=== PATIENT | female | born 1970 | race Caucasian/White ===

== ENCOUNTER → 2016-10-30 | Outpatient (CLI) | payer BC ==
--- NOTE | 2016-10-30 07:53 | US ---
EXAMINATION TYPE: US thyroid st tissue head/neck DATE OF EXAM: 10/30/2016 COMPARISON: NONE CLINICAL HISTORY: E03.9 Hypothyroidism. Hypothyroid, pt states being on thyroid meds x 20 yrs GLAND SIZE: Right Lobe: 3.1 x 1.2 x 0.9 cm Overall Parenchyma: heterogenous Left Lobe: 2.5 x 0.9 x 0.8 cm Overall Parenchyma: heterogeneous Isthmus Thickness: 0.3 cm Bilateral neck scanned, no evidence of lymphadenopathy. Bilateral thyroid small, heterogeneous with n o definite nodules visualized IMPRESSION: THE THYROID GLAND IS HETEROGENOUS WITHOUT DEFINITE NODULE.
--- NOTE | 2016-11-03 11:18 | MM ---
Reason for exam: screening (asymptomatic). Last mammogram was performed 1 year and 2 months ago. History: Family history of breast cancer in paternal cousin at age 35. Benign ultrasound-guided core biopsy of the right breast, May 11, 2011. Physical Findings: A clinical breast exam by your physician is recommended on an annual basis and results should be correlated with mammographic findings. MG Screening Mammo w CAD Bilateral CC and MLO view(s) were taken. Prior study comparison: August 30, 2015, bilateral MG diagnostic mammo w CAD ROMAN. August 30, 2015, right breast US breast limited RT. March 16, 2013, CAD bilateral diagnostic mammogram. April 21, 2011, CAD bilateral diagnostic mammogram. The breast tissue is heterogeneously dense. This may lower the sensitivity of mammography. No significant changes when compared with prior studies. ASSESSMENT: Negative, BI-RAD 1 RECOMMENDATION: Routine screening mammogram of both breasts in 1 year.
== END | disposition home or self-care (01) ==
LOC: RADMAMWWP 07:12
PROVIDERS: ATTEND Family Medicine
DX: Z12.31 Encounter for screening mammogram for malignant neoplasm of breast (principal); E03.9 Hypothyroidism, unspecified
CPT/HCPCS: 76536; G0202

== ENCOUNTER → 2017-12-17 | Outpatient (CLI) | payer BC ==
--- NOTE | 2017-12-21 08:43 | MM ---
Reason for exam: screening (asymptomatic). Last mammogram was performed 1 year and 2 months ago. History: Patient is postmenopausal. Family history of breast cancer in paternal cousin at age 35. Benign ultrasound-guided core biopsy of the right breast, May 11, 2011. Physical Findings: A clinical breast exam by your physician is recommended on an annual basis and results should be correlated with mammographic findings. MG Screening Mammo w CAD Bilateral CC and MLO view(s) were taken. Prior study comparison: October 30, 2016, bilateral MG screening mammo w CAD. August 30, 2015, bilateral MG diagnostic mammo w CAD ROMAN. The breast tissue is heterogeneously dense. This may lower the sensitivity of mammography. Previous mammotome biopsy in the right breast. Obscured mass posterior upper outer quadrant right breast with overlying palpable marker. Elongated nodularity posterior right breast CC view. Mass 10 o'clock left breast middle depth appears larger. ASSESSMENT: Incomplete: need additional imaging evaluation, BI-RAD 0 RECOMMENDATION: Special view mammogram of both breasts. If lesion persists on supplemental views, image directed ultrasound is recommended. [facility] will attempt to contact patient to return for supplemental views and ultrasound if indicated.
== END | disposition home or self-care (01) ==
LOC: RADMAMWWP 07:59
PROVIDERS: ATTEND Family Medicine
DX: Z12.31 Encounter for screening mammogram for malignant neoplasm of breast (principal)
CPT/HCPCS: 77067

== ENCOUNTER → 2017-12-29 | Outpatient (CLI) | payer BC ==
--- NOTE | 2017-12-29 13:39 | MM ---
Reason for exam: additional evaluation requested from abnormal screening. Last mammogram was performed less than 1 month ago. History: Patient is postmenopausal. Family history of breast cancer in paternal cousin at age 35. Benign ultrasound-guided core biopsy of the right breast, May 11, 2011. Physical Findings: Nurse Summary: 3cm nodule in the right breast at 10 o'clock (nurse michelle). MG Work Up Mamm w CAD BILAT Bilateral spot compression CC, spot compression MLO, and ML view(s) were taken. Prior study comparison: December 17, 2017, bilateral MG screening mammo w CAD. October 30, 2016, bilateral MG screening mammo w CAD. Upper outer quadrant spiculated mass consistent with malignancy measuring 3.6 x 3.0cm. Irregular density and nodularity left breast. Ultrasound is recommended. These results were verbally communicated with the patient and result sheet given to the patient on 12/29/17. ASSESSMENT: Incomplete: need additional imaging evaluation, BI-RAD 0 RECOMMENDATION: Ultrasound of both breasts.
--- NOTE | 2017-12-29 14:15 | USB ---
Reason for exam: additional evaluation requested from abnormal screening. History: Patient is postmenopausal. Family history of breast cancer in paternal cousin at age 35. Benign ultrasound-guided core biopsy of the right breast, May 11, 2011. US Breast Workup Limited ROMAN Right complete breast ultrasound includes all four quadrants, the retroareolar region and axilla. Finding demonstrates a 0.5 x 0.5 x 0.4cm oval, cystic cluster at 1 o'clock, a 0.4 x 0.2 x 0.2cm oval, cystic lesion at 5 o'clock, a 0.3 x 0.3 x 0.2cm cystic lesion at 10 o'clock, a 0.4 x 0.4 x 0.4cm oval, irregular, cystic lesion at 10 o'clock for which a biopsy is recommended, a 2.8 x 2.5 x 1.8cm oval, irregular, mixed, hypoechoic lesion at 11 o'clock for which a biopsy is recommended and a 3.8 x 2.7 x 2.9cm taller than wide, hypoechoic lesion at the axilla for which a biopsy is recommended. Left limited breast ultrasound including focal area of concern, retroareolar and axilla demonstrates a 0.3 x 0.4 x 0.2cm cystic lesion at 11 o'clock, a 0.7 x 0.4 x 0.5cm cystic lesion at 11 o'clock and a 0.7 x 0.6 x 0.3cm cystic lesion at 10 o'clock. These results were verbally communicated with the patient and result sheet given to the patient on 12/29/17. ASSESSMENT: Highly suggestive of malignancy, BI-RAD 5 Benign, BI-RAD 2 finding in the left breast. Right breast finding is highly suggestive of malignancy, BI-RAD 5. RECOMMENDATION: Ultrasound core biopsy of the right breast. Called Dr. Wu with mammographic findings and has scheduled an appointment for the patient for 01/06/18 at 3:[address] Wells. Biopsy scheduled for 01/07/18 at 8 o'clock. PRELIMINARY REPORT CALLED AND FAXED TO DR. WELLS ON 12/29/17.
== END | disposition home or self-care (01) ==
LOC: RADMAMWWP 09:16
PROVIDERS: ATTEND Family Medicine
DX: R92.8 Other abnormal and inconclusive findings on diagnostic imaging of breast (principal)
CPT/HCPCS: 77066

== ENCOUNTER → 2018-01-06 | Outpatient (CLI) | payer BC ==
[2018-01-06 15:27] VITALS: BP 108/78; PULSE 74; RESP 16; TEMP 98; BMI 41.5
--- NOTE | 2018-01-06 15:52 | P.GSHP ---
History of Present Illness H&P Date: 01/06/18 The patient is a 47-year-old female who presents for breast examination. She has noted approximately 2 months ago an area of increased nodularity in the upper outer quadrant area of the right breast. The patient had bilateral mammograms performed . Following these mammograms a mass was noted in the right breast in compression views were done of both breasts. On the compression views in the upper outer quadrant of the right breast 3.6 x 3 cm irregular density was noted. Bilateral ultrasound was recommended. On the bilateral ultrasound the following areas were identified and recommended for biopsy. Right breast. 1. 10:00 which was a 0.4 x 0.4 cm oval irregular cystic lesion 2. A 2.8 x 2.5 cm irregular lesion at 11:00 and 3. of 3.8 x 2.7 cm lesion at the area of the axilla. In the left breast it was recommended the patient undergo an ultrasound-guided core biopsy of a hyperechoic lesion at 10:00 after the radiographs were reviewed with Dr. Casas. The lesion is 10 cm from the nipple and measures 0.7 x 0.3 x 0.6 cm. The patient does not note any other changes in her breast. She does not have any history of any trauma to the breast or any history of infection in the breast. She does get regular mammograms and in 2011 felt ultrasound core biopsy of the right breast which was benign. Family History: 1. cousin at 35 with breast cancer 2. dad: colon cancer at 50 3. maternal aunt: ovarian 4. maternal aunt: lung cancer Hormonal history: Menarche: 9 Pregnancies: To first at 16, did not breast-feed 2 children Menopause: Patient has not had a period for 1 year control pills: Negative Hormones: Negative Past surgical history: 1. 2 C-sections 2. Cholecystectomy 3. Umbilical hernia repair 4. Gastric bypass Past medical history: 1. Hypertension 2. Thyroidism Social History: smoke: none alcohol: none drugs: none - Constitutional Constitutional: Denies chills, Denies fever - EENT Eyes: denies blurred vision, denies pain Ears: deny: decreased hearing, tinnitus Ears, nose, mouth and throat: Denies headache, Denies sore throat - Breasts Breasts: bilateral: as per HPI - Cardiovascular Cardiovascular: Reports high blood pressure - Respiratory Respiratory: Denies cough, Denies 7 - Gastrointestinal Comment: Status post gastric bypass Gastrointestinal: Denies abdominal pain, Denies diarrhea, Denies nausea, Denies vomiting - Genitourinary (Female) Genitourinary: Denies dysuria, Denies hematuria - Menstruation Comment: perimenopausal - Musculoskeletal Musculoskeletal: Denies myalgias - Integumentary Integumentary: Denies pruritus, Denies rash - Neurological Neurological: Denies numbness, Denies weakness - Psychiatric Psychiatric: Denies anxiety, Denies depression - Endocrine Comment: Hypothyroidism Endocrine: Denies fatigue, Denies weight change - Hematologic/Lymphatic Comment: none - Allergic/Immunologic Comment: none Past Medical History Past Medical History: Hypertension, Thyroid Disorder History of Any Multi-Drug Resistant Organisms: None Reported Past Surgical History: Breast Surgery, Section, Cholecystectomy, Hernia Repair Past Anesthesia/Blood Transfusion Reactions: No Reported Reaction Smoking Status: Never smoker Past Alcohol Use History: None Reported Past Drug Use History: None Reported Medications and Allergies Home Medications Medication Instructions Recorded Confirmed Type Levothyroxine Sodium [Synthroid] 25 mcg PO DAILY 12/29/17 01/06/18 History Levothyroxine Sodium [Synthroid] 200 mcg PO DAILY 12/29/17 12/29/17 History Ramipril [Altace] 5 mg PO DAILY 12/29/17 01/06/18 History Triamterene-Hctz 37.5-25Mg 1 tab PO DAILY 12/29/17 12/29/17 History [Maxzide 37.5-25] Allergies Allergy/AdvReac Type Severity Reaction Status Date / Time No Known Allergies Allergy Verified 01/06/18 15:12 Surgical - Exam BMI 41.6 - General obese - Eyes normal ocular movement - ENT no hearing loss, no congestion - Neck no masses, trachea midline - Respiratory normal respiratory effort, clear to auscultation - Cardiovascular Rhythm: regular Heart Sounds: normal: S1, S2 - Abdomen Well-healed scar from prior surgery Abdomen: soft, non tender, no guarding, no rigid, no rebound - Integumentary no rash - Neurologic no disoriented, no combative - Psychiatric oriented to time, oriented to person, oriented to place, speech is normal, memory intact Examination: Right breast: Multi-positional exam reveals approximately 3.5 cm lesion in the upper-outer quadrant of the right breast, no other dominant masses or nodules of concern Right axilla: Approximately 3 cm fullness consistent with a lymph node in the right axilla no other adenopathy identified Left breast: Multi-positional exam no dominant masses or nodules of concern Left axilla: No adenopathy of concern Results Radiographs as well as ultrasound of both breasts reviewed with Dr. Casas Assessment and Plan Assessment: Impression: 1. Radiographic and palpable abnormality right breast and right axilla 2. Ultrasound abnormality left breast 3. Ultrasound abnormality of 3 sites in the right breast for which for biopsy is recommended 4. Hypertension 5. Hypothyroidism 6. Arthritis 7.obesity Plan: 1. Ultrasound-guided core biopsy of 3 areas of concern in the right breast with one being in the axilla, ultrasound-guided core biopsy of one area in the left breast at 10:00 10 cm from the nipple 2. Medical management of medical problems 3. Patient to follow-up approximately one week following her ultrasound core biopsies The risks and benefits of ultrasound-guided core biopsy were discussed with the patient. And she wishes to proceed and this will be preformed in the new near future. cc: Dr. Wu
== END ==
LOC: WWCWWP 14:42
PROVIDERS: ATTEND Surgery
DX: Z53.9 Procedure and treatment not carried out, unspecified reason (principal)

== ENCOUNTER → 2018-01-07 | Day surgery (SDC) | payer BC ==
[2018-01-07 07:18] VITALS: RESP 16; TEMP 97.8; BMI 42.3
--- NOTE | 2018-01-07 09:38 | USB ---
ULTRASOUND GUIDED FNA THYROID BIOPSY: CLINICAL HISTORY: Request for biopsy of right axilla lymph node, irregular 2.8 cm lesion, and 10:00 r ight breast lesion, and 10:00 hyperechoic left breast lesion measuring 7 mm for which biopsy is recom mended FINDINGS: The procedure was explained to the patient. The risks, complications, benefits and alternatives were discussed and any questions were answered. Informed consent was obtained. Patient was placed supin e on the ultrasound table and prepped and draped in the usual sterile fashion. Utilizing a 14-gauge core biopsy needle access into each of the 4 lesions was achieved. Surgical clip was placed post biop sy of each lesion. Mammogram performed after demonstrates clip in corresponding location. Patient was stable throughout the procedure. Pathology is pending. All elements of maximal barrier and sterile technique were utilized. IMPRESSION: 1. Successful ultrasound guided core biopsy of 4 sites as requested. 3 within the right breast and a single lesion within the left breast..
--- NOTE | 2018-01-07 14:09 | MM ---
Reason for exam: additional evaluation requested from abnormal screening. Last mammogram was performed less than 1 month ago. History: Patient is postmenopausal. Family history of breast cancer in paternal cousin at age 35. Benign ultrasound-guided core biopsy of the right breast, May 11, 2011. MG Diagnostic [facility] BI Wo CAD Bilateral CC and MLO view(s) were taken. LM view(s) were taken of the right breast. Prior study comparison: December 29, 2017, bilateral MG work up mamm w CAD BILAT. December 17, 2017, bilateral MG screening mammo w CAD. ASSESSMENT: Post procedure mammogram for marker placement RECOMMENDATION: Ultrasound of both breasts in 6 months. PENDING PATHOLOGY RESULTS.
[2018-01-07 15:30] VITALS: BP 110/76; PULSE 69
--- NOTE | 2018-01-11 13:21 | USB ---
US Breast Needle Core RT Radiologist: Orlando Madera M.D. Radiologis Technologist: Rosalie Martin, RT (R)(M) ULTRASOUND GUIDED FNA BREAST BIOPSY: CLINICAL HISTORY: Request for biopsy of right axilla lymph node, irregular 2.8 cm lesion, and 10:00 right breast lesion, and 10:00 hyperechoic left breast lesion measuring 7 mm for which biopsy is recommended FINDINGS: The procedure was explained to the patient. The risks, complications, benefits and alternatives were discussed and any questions were answered. Informed consent was obtained. Patient was placed supine on the ultrasound table and prepped and draped in the usual sterile fashion. Utilizing a 14-gauge core biopsy needle access into each of the 4 lesions was achieved. Surgical clip was placed post biopsy of each lesion. Mammogram performed after demonstrates clip in corresponding location. Patient was stable throughout the procedure. Pathology is pending. All elements of maximal barrier and sterile technique were utilized. IMPRESSION: 1. Successful ultrasound guided core biopsy of 4 sites as requested. 3 within the right breast and a single lesion within the left breast. Pathology Results: Malignant A. RIGHT BREAST, AXILLARY TAIL, ULTRASOUND GUIDED CORE BIOPSY: Invasive moderately differentiated ductal carcinoma (grade 2). See Surgical Pathology Cancer Case Summary and Comment. B. BREAST, RIGHT, 10:00, ULTRASOUND GUIDED CORE BIOPSY: Invasive moderately differentiated ductal carcinoma (grade 2). See Surgical Pathology Cancer Case Summary and Comment. C. BREAST, RIGHT, 11:00, ULTRASOUND GUIDED CORE BIOPSY: Fibroadenoma with associated chronic inflammation. D. BREAST, LEFT, 10:00, UTRASOUND GUIDED CORE BIOPSY: Angiolipoma. Breast elements are not identified. RECOMMENDATION: Surgical consultation of the right breast. [facility]
== END ==
LOC: RADUSWWP 06:57
PROVIDERS: ATTEND Surgery
DX: C50.911 Malignant neoplasm of unspecified site of right female breast (principal); D24.1 Benign neoplasm of right breast; D17.79 Benign lipomatous neoplasm of other sites; Z80.3 Family history of malignant neoplasm of breast
CPT/HCPCS: 88305; 88342; 88341; 77066; 38505; 19083; 19084 ×2; A4648; J2001

== ENCOUNTER → 2018-01-19 | Outpatient (CLI) | payer BC | END | disposition home or self-care (01) | LOC: RADMRIMAIN 19:15 | PROVIDERS: ATTEND Internal Medicine Hematology & Oncology | DX: Z53.9 Procedure and treatment not carried out, unspecified reason (principal) ==

== ENCOUNTER → 2018-01-21 | Outpatient (CLI) | payer BC ==
[2018-01-21 14:55] VITALS: BP 117/78; PULSE 72; RESP 12; TEMP 98; BMI 41.5
--- NOTE | 2018-01-21 15:46 | P.PN ---
Subjective Progress Note Date: 01/21/18 Principal diagnosis: ultrasound biopsy positive for right breast cancer Patient is a 47-year-old white female is status post ultrasound-guided core biopsy of a proximally 2.5 cm area of concern in the right breast in the upper inner quadrant region as well as an axillary tail area which is approximately 4 cm in size. Both were consistent with invasive ductal carcinoma. A third area was biopsied in the breast which was consistent with a fibroadenoma. Left breast biopsy was benign. The patient at this time as no complaints related to the changes in her breast. She has already been seen by medical oncology and is planning to proceed with chemotherapy preoperatively. Additionally she has an MRI scheduled for both breast. Objective - Vital Signs Vital signs: Vital Signs Temp 98 F 01/21/18 14:48 Pulse 72 01/21/18 14:48 Resp 12 01/21/18 14:48 BP 117/78 01/21/18 14:48 Pulse Ox 99 01/21/18 14:48 Intake & Output 01/20/18 01/21/18 01/21/18 18:59 06:59 18:59 Weight 131.542 kg - Constitutional General appearance: Present: obese - EENT Eyes: Present: EOMI ENT: Present: hearing grossly normal - Neck Neck: Present: normal ROM - Respiratory Respiratory: bilateral: CTA - Cardiovascular Rhythm: regular Heart sounds: normal: S1, S2 - Gastrointestinal General gastrointestinal: Present: soft - Integumentary Integumentary Comment(s): Right breast: biopsy incision sites clean and dry no evidence of any infection; 2 1/2 centimeter area of nodularity upper outer quadrant biopsy positive for invasive ductal carcinoma Right axilla: Positive adenopathy biopsy positive for invasive ductal carcinoma - Musculoskeletal Musculoskeletal: Present: gait normal - Psychiatric Psychiatric: Present: A&O x's 3, appropriate affect, intact judgment & insight Assessment and Plan Assessment: Impression/plan: 1. Right breast invasive ductal carcinoma as well as probable invasive ductal carcinoma right axillary nodes/tail of the breast 2. Patient is going to start chemotherapy in near future 3. Patient is alert and seen by medical oncology Plan: 1. Mediport to be placed near future 2. Preoperative chemotherapy 3. Bilateral breast MRI 4. Follow-up here in 1 month 5. Surgical intervention is delayed until after neoadjuvant chemotherapy CC: Dr. Merino, Dr. Long
== END ==
LOC: WWCWWP 14:40
PROVIDERS: ATTEND Surgery
DX: Z53.9 Procedure and treatment not carried out, unspecified reason (principal)

== ENCOUNTER → 2018-01-25 | Outpatient (CLI) | payer BC ==
--- NOTE | 2018-01-25 14:01 | CT ---
EXAMINATION TYPE: CT ChestAbdPelvis w con DATE OF EXAM: 01/25/2018 COMPARISON: Correlation mammogram 01/07/2018 HISTORY: 47-year-old female Recent diagnosis of left breast cancer. Prechemotherapy evaluation. TECHNIQUE: Contiguous axial scanning of the performed with IV Contrast, patient injected with 100 mL of Isovue 300. Delayed images through the kidneys were obtained. Coronal/sagittal reconstructions per formed. CT DLP: 2610.4 mGycm Automated exposure control for dose reduction was used. FINDINGS: Chest: Heart normal size without pericardial effusion. Aorta normal caliber with conventional arch vessel branching anatomy. No mediastinal or hilar lymphadenopathy. However, biopsy clips are present in both breasts with no upper outer quadrant posterior right breast mass measuring approximately 2.7 cm. There is right axillary lymphadenopathy, largest measuring 3.5 cm also with a biopsy clip. A more sup erior and deeply located axillary lymph node is in the subpectoral chain measuring 2.2 cm short axis. Reference axial image 10. The internal mammary chains are clear. No consolidation or pleural effusion. ABDOMEN: Small hiatal hernia. Surgical changes of sleeve gastrectomy. No focal liver lesion or biliary ductal dilatation. Portal venous system is patent. Adrenal glands, kidneys, spleen with tiny hilar splenule, pancreas appear within normal limits. Scattered prominent but nonenlarged 6 mm central mesenteric lymph nodes. Lymph nodes are more numerou s in the right lower quadrant measuring up to 8 mm. Normal appendix. No dilated small bowel, free fluid, or free air. There is focal rounded area of mixed fat and soft tissue density in the right lower quadrant adjacent to the cecum measuring 1.8 cm. Refer to axial image 89. No significant stool burden. Pelvis: Bladder urine distended. Uterus and ovaries are visualized. No abnormal fluid collection in the pelvi s or pelvic lymphadenopathy. Bones: Mild degenerative changes at the hips. Some subarticular sclerosis at the SI joints and degenerative changes lower lumbar spine. IVC filter is present. No osseous destructive process. IMPRESSION: 1. KNOWN UPPER OUTER QUADRANT POSTERIOR RIGHT BREAST MASS (2.7 CM). THERE IS AXILLARY LYMPHADENOPATH Y (MEASURING UP TO 3.5 CM) EXTENDING INTO THE RIGHT SUBPECTORAL CHAIN (2.2 CM). 2. SMALL HIATAL HERNIA WITH POSTSURGICAL CHANGES OF SLEEVE GASTRECTOMY. 3. NUMEROUS PROMINENT BUT NONENLARGED MESENTERIC LYMPH NODES ESPECIALLY IN THE RIGHT LOWER QUADRANT P ROBABLY REACTIVE/POST INFLAMMATORY. HOWEVER, THERE IS A FOCAL 1.8 CM AREA OF MIXED SOFT TISSUE AND FA T DENSITY ADJACENT TO THE CECUM. THIS CAN BE SEEN WITH EPIPLOIC APPENDAGITIS. CLINICALLY CORRELATE.
--- NOTE | 2018-01-25 14:19 | ECHOF ---
Referral Reason:Breast CA C50.411 pre chemo Z01.818 MEASUREMENTS -------- HEIGHT: 182.9 cm WEIGHT: 131.5 kg BP: IVSd: 1.3 cm (0.6 - 1.1) LVIDd: 3.1 cm (3.9 - 5.3) LVPWd: 1.4 cm (0.6 - 1.1) IVSs: 1.9 cm LVIDs: 1.6 cm LVPWs: 1.7 cm Ao Diam: 3.3 cm (2.0 - 3.7) LA Diam: 3.4 cm (2.7 - 3.8) AV Cusp: 1.8 cm (1.5 - 2.6) EPSS: 0.3 cm MV E Clement: 0.91 m/s MV DecT: 188 ms MV A Clement: 0.91 m/s MV E/A Ratio: 1.01 RAP: 5.00 mmHg RVSP: 11.16 mmHg MV EF SLOPE: 83.36 mm/s (70 - 150) MV EXCURSION: 12.84 mm (> 18.000) FINDINGS -------- Sinus rhythm. This was a technically adequate study. The left ventricular size is normal. There is mild concentric left ventricular hypertrophy. Overa ll left ventricular systolic function is normal with, an EF between 55 - 60 %. The right ventricle is normal in size and function. The left atrium is normal in size. The right atrium is normal in size. The aortic valve is trileaflet, and appears structurally normal. No aortic stenosis or regurgitation. Normal appearing mitral valve. There is trace mitral regurgitation. The tricuspid valve appears structurally normal. Trace tricuspid regurgitation present. The right ventricular systolic pressure, as measured by Doppler, is 11.16mmHg. Pulmonic valve appears structurally normal. The aortic root size is normal. Normal inferior vena cava with normal inspiratory collapse consistent with estimated right atrial pre ssure of 5 mmHg. The pericardium is normal. CONCLUSIONS -------- 1. Sinus rhythm. 2. This was a technically adequate study. 3. The left ventricular size is normal. 4. There is mild concentric left ventricular hypertrophy. 5. Overall left ventricular systolic function is normal with, an EF between 55 - 60 %. 6. The right ventricle is normal in size and function. 7. The left atrium is normal in size. 8. The right atrium is normal in size. 9. The aortic valve is trileaflet, and appears structurally normal. No aortic stenosis or regurgitati on. 10. Normal appearing mitral valve. 11. There is trace mitral regurgitation. 12. The tricuspid valve appears structurally normal. 13. Trace tricuspid regurgitation present. 14. The right ventricular systolic pressure, as measured by Doppler, is 11.16mmHg. 15. Pulmonic valve appears structurally normal. 16. The aortic root size is normal. 17. Normal inferior vena cava with normal inspiratory collapse consistent with estimated right atrial pressure of 5 mmHg. 18. The pericardium is normal. NDT INSPECTOR: Rosi Hernandez RDCS
--- NOTE | 2018-01-25 23:13 | NM ---
EXAMINATION TYPE: NM bone scan whole body DATE OF EXAM: 01/25/2018 COMPARISON: Correlation CT same day HISTORY: 47-year-old female history of breast cancer Technique: Delayed whole-body scanning was performed following the injection of 25.8 mCi Tc 99m MDP. Whole-body anterior and posterior images acquired 3.5 hours post injection. FINDINGS: Some symmetrical calvarial uptake likely normal variation. There is mild degenerative uptake in the k nees and hind foot regions. No suspicious distribution of tracer activity to suggest osseous metastat ic disease. IMPRESSION: No scintigraphic evidence for osseous metastatic disease.
== END | disposition home or self-care (01) ==
LOC: RADECHMAIN 08:25
PROVIDERS: ATTEND Internal Medicine Hematology & Oncology
DX: C50.411 Malignant neoplasm of upper-outer quadrant of right female breast (principal); Z01.818 Encounter for other preprocedural examination; R59.0 Localized enlarged lymph nodes; K44.9 Diaphragmatic hernia without obstruction or gangrene; K63.89 Other specified diseases of intestine; I51.7 Cardiomegaly; Z90.3 Acquired absence of stomach [part of]
CPT/HCPCS: 93306; 71260; 74177; 78306; A9503; Q9967

== ENCOUNTER → 2018-03-04 | Outpatient (CLI) | payer BC ==
[2018-03-04 11:55] VITALS: BP 112/70; PULSE 72; RESP 18; TEMP 98.2; BMI 41.5
--- NOTE | 2018-03-04 12:10 | P.PN ---
Subjective Progress Note Date: 03/04/18 Principal diagnosis: right breast cancer Naz is a 47-year-old white female who has a biopsy-proven right breast cancer. She has received 2 courses of chemotherapy. The size of the tumor appears to be approximately 2.5 cm. Additionally there was some right axillary lymphadenopathy largest measuring 3.5 cm which was also biopsied for invasive ductal carcinoma. Since the chemotherapy the patient is no longer able to feel the tumor. The patient still needs to have 4 more courses of chemotherapy which will be 3 weeks apart. This is approximately 3 months. The patient also had a bone scan performed which did not show any evidence of metastatic disease. She had a CAT scan done of the chest abdomen and pelvis revealed only 1.8 cm nodular area adjacent to the cecum. The patient is on a 4 drug regimen which includes Herceptin and Perjetta. She did have some joint pain following the Neulasta injection the last time. Objective - Vital Signs Vital signs: Vital Signs Temp 98.2 F 03/04/18 11:47 Pulse 72 03/04/18 11:47 Resp 18 03/04/18 11:47 BP 112/70 03/04/18 11:47 Pulse Ox 95 03/04/18 11:47 Intake & Output 03/03/18 03/04/18 03/04/18 18:59 06:59 18:59 Weight 131.542 kg - Exam BMI 41.6 - Constitutional General appearance: Present: obese - EENT Eyes: Present: EOMI - Respiratory Respiratory: bilateral: CTA - Cardiovascular Rhythm: regular Heart sounds: normal: S1, S2 - Gastrointestinal General gastrointestinal: Present: soft - Psychiatric Psychiatric: Present: A&O x's 3, appropriate affect, intact judgment & insight - Additional findings Additional findings: Breast examination: Right breast: Multi-positional exam marked decrease in size of the tumor the lateral aspect of the right breast cannot be well felt that this time Right axilla: No definite adenopathy palpated at this time Left breast: Multi-positional exam no dominant masses or nodules of concern Left axilla: No adenopathy of concern Assessment and Plan Assessment: Impression: 1. 47-year-old white female has had second course of chemotherapy for right breast cancer which is now the longer palpable 2. Computed tomography scan with questionable 1.8 cm change near the cecum with consider PET CT Plan: 1. Continue present therapy 2. Surgical intervention in approximately 3 months 3. Follow-up in 2 months Cc: Dr. Wu
== END | disposition home or self-care (01) ==
LOC: WWCWWP 10:43
PROVIDERS: ATTEND Surgery
DX: Z53.9 Procedure and treatment not carried out, unspecified reason (principal)

== ENCOUNTER 2018-03-25 20:29 | Emergency (ER) | payer BC ==
[2018-03-25] MEDS ORDERED: PEGFILGRASTIM 6 MG/0.6 ML SYRINGE SQ ONE ×2 (21:30→21:32)
--- NOTE | 2018-03-25 21:37 | ED ---
General Adult HPI - General Chief complaint: Recheck/Abnormal Lab/Rx Stated complaint: Needs last shot Time Seen by Provider: 03/25/18 21:13 Source: patient Mode of arrival: ambulatory Limitations: no limitations - History of Present Illness Initial comments: Patient is a 47-year-old female who presents with a chief complaint of needing a Neulasta dose after having chemotherapy today. She states that she normally gets it after her infusion but the device failed today and she was sent to the emergency department to receive her dose. I spoke with her oncologist prior to her arrival and verified that we do have the medication in house. she has no complaints today. - Related Data Home Medications Medication Instructions Recorded Confirmed Levothyroxine Sodium [Synthroid] 25 mcg PO DAILY 12/29/17 03/25/18 Levothyroxine Sodium [Synthroid] 200 mcg PO DAILY 12/29/17 03/25/18 Ramipril [Altace] 5 mg PO DAILY 12/29/17 03/25/18 Triamterene-Hctz 37.5-25Mg 1 tab PO DAILY 12/29/17 03/25/18 [Maxzide 37.5-25] Dexamethasone 8 mg PO DIRECTED 02/09/18 03/25/18 Allergies Allergy/AdvReac Type Severity Reaction Status Date / Time No Known Allergies Allergy Verified 03/25/18 21:09 Review of Systems ROS Statement: Those systems with pertinent positive or pertinent negative responses have been documented in the HPI. ROS Other: All systems not noted in ROS Statement are negative. Past Medical History Past Medical History: Hypertension, Thyroid Disorder History of Any Multi-Drug Resistant Organisms: None Reported Past Surgical History: Breast Surgery, Section, Cholecystectomy, Hernia Repair Additional Past Surgical History / Comment(s): breast bx 2012. x2 Past Anesthesia/Blood Transfusion Reactions: No Reported Reaction Past Psychological History: No Psychological Hx Reported Smoking Status: Former smoker - Past Family History Father Family Medical History: Cancer, Diabetes Mellitus, Hypertension, Myocardial Infarction (SD) Additional Family Medical History / Comment(s): colon Mother Family Medical History: Diabetes Mellitus Sister(s) Family Medical History: Diabetes Mellitus General Exam Limitations: no limitations General appearance: alert, in no apparent distress Head exam: Present: atraumatic, normocephalic Eye exam: Present: normal appearance Respiratory exam: Present: normal lung sounds bilaterally. Absent: respiratory distress, wheezes Cardiovascular Exam: Present: regular rate, normal rhythm GI/Abdominal exam: Present: soft. Absent: distended, tenderness Neurological exam: Present: alert, oriented X3 Psychiatric exam: Present: normal affect, normal mood Skin exam: Present: warm, dry, intact Course Vital Signs 03/25/18 20:38 Temperature 97.8 F Pulse Rate 81 Respiratory 16 Rate Blood Pressure 146/89 O2 Sat by Pulse 97 Oximetry Medical Decision Making - Medical Decision Making Patient presents today for her Neulasta injection after chemotherapy. She states that the device malfunctioned after her infusion and she presented to the emergency department to receive her dose. Patient is no additional complaints today. Case discussed with her oncology team, the order was placed by her oncologist. After injection, patient stable for discharge. Disposition Clinical Impression: Encounter for medication refill Disposition: HOME SELF-CARE Condition: Good Is patient prescribed a controlled substance at d/c from ED?: No Referrals: Steph Wu MD [Primary Care Provider] - 1-2 days
[2018-03-25 21:54] VITALS: BP 130/81; PULSE 72; RESP 18; TEMP 97.9
== END 2018-03-25 21:51 | disposition home or self-care (01) ==
LOC: EC 20:29
DX: Z76.0 Encounter for issue of repeat prescription (principal); Z87.891 Personal history of nicotine dependence; I10 Essential (primary) hypertension; E07.9 Disorder of thyroid, unspecified; Z79.52 Long term (current) use of systemic steroids; Z79.899 Other long term (current) drug therapy; Z92.21 Personal history of antineoplastic chemotherapy
CPT/HCPCS: 99281; 96372; J2505

== ENCOUNTER → 2018-05-06 | Outpatient (CLI) | payer BC ==
--- NOTE | 2018-05-07 08:40 | ECHOF ---
Referral Reason:C50.411 Breast Ca, Z01.818 Chemo Exposure MEASUREMENTS -------- HEIGHT: 180.3 cm WEIGHT: 131.5 kg BP: IVSd: 1.3 cm (0.6 - 1.1) LVIDd: 3.2 cm (3.9 - 5.3) LVPWd: 1.6 cm (0.6 - 1.1) IVSs: 1.8 cm LVIDs: 2.0 cm LVPWs: 1.7 cm LAESV Index (A-L): 16.14 ml/m Ao Diam: 3.0 cm (2.0 - 3.7) LA Diam: 3.0 cm (2.7 - 3.8) AV Cusp: 2.3 cm (1.5 - 2.6) EPSS: 0.3 cm MV E Clement: 0.95 m/s MV DecT: 237 ms MV A Clement: 0.93 m/s MV E/A Ratio: 1.02 RAP: 5.00 mmHg RVSP: 21.10 mmHg MV EF SLOPE: 112.84 mm/s (70 - 150) MV EXCURSION: 14.23 mm (> 18.000) FINDINGS -------- Sinus rhythm. This was a technically good study. The left ventricular size is normal. There is moderate concentric left ventricular hypertrophy. O verall left ventricular systolic function is normal with, an EF between 55 - 60 %. The right ventricle is normal in size. The left atrial size is normal. The right atrial size is normal. The aortic valve is trileaflet and appears structurally normal. There is trace mitral regurgitation. Trace tricuspid regurgitation present. The right ventricular systolic pressure, as measured by Dopp ler, is 21.10mmHg. Pulmonic valve appears structurally normal. The aortic root size is normal. Normal inferior vena cava with normal inspiratory collapse consistent with estimated right atrial pre ssure of 5 mmHg. The pericardium is normal. CONCLUSIONS -------- 1. Sinus rhythm. 2. This was a technically good study. 3. The left ventricular size is normal. 4. There is moderate concentric left ventricular hypertrophy. 5. Overall left ventricular systolic function is normal with, an EF between 55 - 60 %. 6. The right ventricle is normal in size. 7. The left atrial size is normal. 8. The right atrial size is normal. 9. The aortic valve is trileaflet and appears structurally normal. 10. There is trace mitral regurgitation. 11. Trace tricuspid regurgitation present. 12. The right ventricular systolic pressure, as measured by Doppler, is 21.10mmHg. 13. Pulmonic valve appears structurally normal. 14. The aortic root size is normal. 15. Normal inferior vena cava with normal inspiratory collapse consistent with estimated right atrial pressure of 5 mmHg. 16. The pericardium is normal. CALENDER MACHINE OPERATOR HELPER: Rosi Hernandez RDCS
== END | disposition home or self-care (01) ==
LOC: RADECHMAIN 16:22
PROVIDERS: ATTEND Internal Medicine Hematology & Oncology
DX: Z01.818 Encounter for other preprocedural examination (principal); I51.7 Cardiomegaly; C50.411 Malignant neoplasm of upper-outer quadrant of right female breast
CPT/HCPCS: 93306

== ENCOUNTER → 2018-05-06 | Outpatient (CLI) | payer BC ==
[2018-05-06 10:08] VITALS: BP 124/83; PULSE 76; RESP 18; TEMP 97.5; BMI 41.5
--- NOTE | 2018-05-06 10:31 | P.PN ---
Subjective Progress Note Date: 05/06/18 Naz is a 47-year-old white female who has a biopsy-proven right breast cancer. She has received 5 courses of chemotherapy. The tumor appears to have shrunk now to be on pelvic bubble by the patient. Additionally she does not feel any adenopathy in her arms. The patient has 1 more course of chemotherapy. This will be due May 26. The patient has had a bone scan performed which did not show any evidence of metastatic disease. She had a CAT scan done of the chest abdomen and pelvis revealing only a 1.8 cm nodular area adjacent to the cecum. The patient is on a 4 drug regimen which includes Herceptin and projected. The patient had a recent conversation with Dr. Long regarding surgical options and the feeling was that she would be a good candidate for lumpectomy and radiation therapy. He did not discuss with her treatment of the axilla, although we have discussed that because she had preoperative positive nodes that I would most likely recommend an axillary dissection. Her case will be presented at tumor board. Naz has had a BRCA1 test and is negative. Family History: paternal cousin: breast cancer maternal aunt: ovarian father: colon cancer paternal cousin: Non-Hodgkin's lymphoma Hormonal history: Menarche:9 : 2, children 2, first at 17, breast fed: no menopause: perimenopausal stopped with chemotherapy BCP: none hormone: none Past past surgical history: 1. Cystectomy 2. 2 3. Gastric bypass Past Medical History: 1. Hypothyroidism 2. Hypertension Social History: smoke: none alcohol: none drugs: none ROS: HEENT: Wears glasses Lungs:none Heart: Hypertension GI: Status post gastric bypass . Perimenopausal Musculoskeletal: Negative Skin: none Psychiatric: Negative Objective - Exam BMI 41.5 - Constitutional General appearance: Present: obese - EENT Eyes: Present: EOMI ENT: Present: hearing grossly normal - Neck Neck: Present: normal ROM - Respiratory Respiratory: bilateral: CTA - Cardiovascular Rhythm: regular Heart sounds: normal: S1, S2 - Gastrointestinal General gastrointestinal: Present: soft - Integumentary Integumentary: Present: normal turgor - Musculoskeletal Musculoskeletal: Present: gait normal - Psychiatric Psychiatric: Present: A&O x's 3, appropriate affect - Additional findings Additional findings: Breast examination: Right breast: Multiple positional exam does not reveal any dominant mass or nodule at this time, the tumor is no longer palpable Right axilla: No adenopathy is palpable of concern at this time {: Multiple positional exam no dominant masses or nodules of concern Left axilla: No adenopathy of concern Assessment and Plan Assessment: Impression: 1. Patient is completing neoadjuvant chemotherapy for a [id number]+NV+HER2/Yunior+ Grade 2 2. HTN 3. hypothyroid Plan: 1. medical clearance from Dr. Wu 2. Needle localization lumpectomy right breast, axillary node dissection, possible sentinel node injection with sentinel node biopsy The risks and benefits of the procedure been discussed with the patient and her . She has been given the option of lumpectomy and radiation therapy versus mastectomy plus or minus reconstruction. Additionally we have talked about axillary node dissection, possible sentinel node biopsy with axillary lymph node dissection. We will present her case at tumor board prior to surgery. We will coordinate with Dr. Long the timing of the surgery. She and her understand and wish to proceed. Cc: Dr. Wu
== END ==
LOC: WWCWWP 09:34
PROVIDERS: ATTEND Surgery
DX: Z53.9 Procedure and treatment not carried out, unspecified reason (principal)

== ENCOUNTER → 2018-08-08 | Outpatient (CLI) | payer BC ==
--- NOTE | 2018-08-08 20:43 | ECHOF ---
Referral Reason:Breast ca C50.411, Chemo exposure Z01.818 MEASUREMENTS -------- HEIGHT: 182.9 cm WEIGHT: 127.0 kg BP: IVSd: 1.3 cm (0.6 - 1.1) LVIDd: 4.1 cm (3.9 - 5.3) LVPWd: 1.7 cm (0.6 - 1.1) IVSs: 1.3 cm LVIDs: 1.3 cm LVPWs: 2.0 cm LAESV Index (A-L): 14.68 ml/m Ao Diam: 3.2 cm (2.0 - 3.7) LA Diam: 3.1 cm (2.7 - 3.8) AV Cusp: 2.2 cm (1.5 - 2.6) EPSS: 0.3 cm MV E Clement: 0.64 m/s MV DecT: 240 ms MV A Clement: 0.73 m/s MV E/A Ratio: 0.88 MV EF SLOPE: 40.40 mm/s (70 - 150) MV EXCURSION: 13.54 mm (> 18.000) FINDINGS -------- Sinus rhythm. This was a technically good study. The left ventricular size is normal. There is moderate concentric left ventricular hypertrophy. O verall left ventricular systolic function is normal with, an EF between 55 - 60 %. The right ventricle is normal in size. Normal LA size by volume 22+/-6 ml/m2. The right atrial size is normal. Interatrial and interventricular septum intact. The aortic valve is trileaflet and appears structurally normal. The mitral valve leaflets are mildly thickened. Mild mitral annular calcification present. Mild m itral regurgitation is present. Mild tricuspid regurgitation present. The right ventricular systolic pressure, as measured by Doppl er, is {RVSP}. Trace/mild (physiologic) pulmonic regurgitation. The aortic root size is normal. Normal inferior vena cava with normal inspiratory collapse consistent with estimated right atrial pre ssure of 5 mmHg. There is no pericardial effusion. CONCLUSIONS -------- 1. Sinus rhythm. 2. This was a technically good study. 3. The left ventricular size is normal. 4. There is moderate concentric left ventricular hypertrophy. 5. Overall left ventricular systolic function is normal with, an EF between 55 - 60 %. 6. The right ventricle is normal in size. 7. Normal LA size by volume 22+/-6 ml/m2. 8. The right atrial size is normal. 9. Interatrial and interventricular septum intact. 10. The aortic valve is trileaflet and appears structurally normal. 11. The mitral valve leaflets are mildly thickened. 12. Mild mitral annular calcification present. 13. Mild mitral regurgitation is present. 14. Mild tricuspid regurgitation present. 15. The right ventricular systolic pressure, as measured by Doppler, is {RVSP}. 16. Trace/mild (physiologic) pulmonic regurgitation. 17. The aortic root size is normal. 18. Normal inferior vena cava with normal inspiratory collapse consistent with estimated right atrial pressure of 5 mmHg. 19. There is no pericardial effusion. DRUM STRAIGHTENER: Rosi Hernandez RDCS
== END | disposition home or self-care (01) ==
LOC: RADECHMAIN 14:07
PROVIDERS: ATTEND Internal Medicine Hematology & Oncology
DX: Z01.818 Encounter for other preprocedural examination (principal); I08.1 Rheumatic disorders of both mitral and tricuspid valves; C50.411 Malignant neoplasm of upper-outer quadrant of right female breast
CPT/HCPCS: 93306

== ENCOUNTER → 2018-10-03 | Outpatient (CLI) | payer BC ==
--- NOTE | 2018-10-03 13:45 | BD ---
EXAMINATION TYPE: Axial Bone Density DATE OF EXAM: 10/03/2018 COMPARISON: NONE CLINICAL HISTORY: Breast cancer. Hormone replacement. Height: 67.5 inches Weight: 273 FRAX RISK QUESTIONS: Alcohol (3 or more units per day): no Family History (Parent hip fracture): no Glucocorticoids (More than 3mos): no (Ex: prednisone, prednisolone, methylprednisolone, dexamethasone, and hydrocortisone). History of Fracture in Adulthood: no Secondary Osteoporosis: 1. Type 1 Diabetes: no 2. Hyperthyroidism: no 3. Menopause before 45: no 4. Malnutrition: no 5. Chronic liver disease: no Rheumatoid Arthritis: no Current Tobacco Use: no RISK FACTORS HISTORY OF: History of Wrist Fracture: possibly When: as child broke left forearm, uncertain if distal or proximal Family History of Osteoporosis: no Active: yes Diet low in dairy products/other sources of calcium: no Postmenopausal woman: patient states went through menopause age 46; however, during course of chemo h ad a cycle, so patient taking drug that brings on menopause per her physician Take estrogen and/or progesterone medications: no Lost more than 2 inches in height since high school: unsure, states height was about 5ft 10 inches at one time Frequent falls: no Poor Health: Breast CA Hyperparathyroidism: no Adrenal Insufficiency: no MEDICATIONS: Prednisone or other steroids: no Thyroid Medications: yes Which medication: Synthroid How Long: about 20 years Osteoporosis Medications: no Additional Medications: blood pressure med; Letrozole, Lupron Additional History: Breast CA/chemo. EXAM MEASUREMENTS: Bone mineral densitometry was performed using the [employer] System. Bone mineral density as measured about the Lumbar spine is: ----- L1-L4(G/cm2): 1.134 T Score Values are as follows: ----- L2: -0.7 ----- L3: -0.6 ----- L4: 0.3 ----- L1-L4: -0.4 Bone mineral density BASELINE Bone mineral density about the R hip (g/cm2): 0.992 Bone mineral density about the L hip (g/cm2): 0.926 T Score values are as follows: -----R Neck: -0.3 -----L Neck: -0.8 -----R Total: 0.5 -----L Total: 0.1 Bone mineral density BASELINE IMPRESSION: Normal (Values between +1 and -1 indicate normal bone mass). Consider repeating this study in 5 year s or sooner if there is some new clinical indication. NOTE: T-SCORE=SD OF THE YOUNG ADULT MEAN.
== END | disposition home or self-care (01) ==
LOC: RADBDWWP 08:39
PROVIDERS: ATTEND Internal Medicine Hematology & Oncology
DX: C50.411 Malignant neoplasm of upper-outer quadrant of right female breast (principal); N95.1 Menopausal and female climacteric states; Z79.890 Hormone replacement therapy
CPT/HCPCS: 77080

== ENCOUNTER → 2018-11-07 | Outpatient (CLI) | payer BC ==
[2018-11-07 16:12] LABS: Vitamin D 25 Hydroxy 30.3 ng/mL (30.0-100.0)
== END | disposition home or self-care (01) ==
LOC: LABWHC1 06:38
PROVIDERS: ATTEND Psychiatry & Neurology Neurology
DX: G62.0 Drug-induced polyneuropathy (principal)
CPT/HCPCS: 36415; 82306; 82607

== ENCOUNTER → 2018-12-09 | Outpatient (CLI) | payer BC ==
--- NOTE | 2018-12-09 10:27 | ECHOF ---
Referral Reason:Z01.818 chemo, C50.411 breast cancer MEASUREMENTS -------- HEIGHT: 175.3 cm WEIGHT: 124.7 kg BP: IVSd: 1.3 cm (0.6 - 1.1) LVIDd: 3.8 cm (3.9 - 5.3) LVPWd: 1.5 cm (0.6 - 1.1) IVSs: 1.9 cm LVIDs: 1.6 cm LVPWs: 1.7 cm LAESV Index (A-L): 20.45 ml/m Ao Diam: 3.2 cm (2.0 - 3.7) AV Cusp: 2.0 cm (1.5 - 2.6) LA Diam: 3.5 cm (2.7 - 3.8) MV EXCURSION: 15.618 mm (> 18.000) MV EF SLOPE: 50 mm/s (70 - 150) EPSS: 0.8 cm MV E Clement: 1.07 m/s MV DecT: 281 ms MV A Clement: 1.06 m/s MV E/A Ratio: 1.02 RAP: 5.00 mmHg RVSP: 15.01 mmHg FINDINGS -------- Sinus rhythm. This was a technically good study. The left ventricular size is normal. There is mild concentric left ventricular hypertrophy. Overa ll left ventricular systolic function is normal with, an EF between 55 - 60 %. The right ventricle is normal in size. Normal LA size by volume 22+/-6 ml/m2. The right atrial size is normal. Interatrial and interventricular septum intact. The aortic valve is trileaflet and appears structurally normal. The mitral valve is normal. There is trace mitral regurgitation. The tricuspid valve appears structurally normal. Trace tricuspid regurgitation present. Right vic tricular systolic pressure is normal at < 35 mmHg. There is no pulmonic regurgitation present. The aortic root size is normal. Normal inferior vena cava with normal inspiratory collapse consistent with estimated right atrial pre ssure of 5 mmHg. There is no pericardial effusion. CONCLUSIONS -------- 1. Sinus rhythm. 2. This was a technically good study. 3. The left ventricular size is normal. 4. There is mild concentric left ventricular hypertrophy. 5. Overall left ventricular systolic function is normal with, an EF between 55 - 60 %. 6. The right ventricle is normal in size. 7. Normal LA size by volume 22+/-6 ml/m2. 8. The right atrial size is normal. 9. Interatrial and interventricular septum intact. 10. The aortic valve is trileaflet and appears structurally normal. 11. The mitral valve is normal. 12. There is trace mitral regurgitation. 13. The tricuspid valve appears structurally normal. 14. Trace tricuspid regurgitation present. 15. Right ventricular systolic pressure is normal at < 35 mmHg. 16. There is no pulmonic regurgitation present. 17. The aortic root size is normal. 18. Normal inferior vena cava with normal inspiratory collapse consistent with estimated right atrial pressure of 5 mmHg. 19. There is no pericardial effusion. TRUCK JUMPER: Rosi Hernandez RDCS
== END | disposition home or self-care (01) ==
LOC: RADECHMAIN 08:25
PROVIDERS: ATTEND Internal Medicine Hematology & Oncology
DX: Z01.818 Encounter for other preprocedural examination (principal); C50.411 Malignant neoplasm of upper-outer quadrant of right female breast
CPT/HCPCS: 93306

== ENCOUNTER → 2019-02-28 | Outpatient (CLI) | payer BC ==
--- NOTE | 2019-02-28 12:01 | ECHOF ---
Referral Reason:Breast ca C50.411, Chemo Z01.818 MEASUREMENTS -------- HEIGHT: 175.3 cm WEIGHT: 122.5 kg BP: IVSd: 1.3 cm (0.6 - 1.1) LVIDd: 3.1 cm (3.9 - 5.3) LVPWd: 1.4 cm (0.6 - 1.1) IVSs: 1.7 cm LVIDs: 1.8 cm LVPWs: 1.9 cm LAESV Index (A-L): 20.31 ml/m Ao Diam: 3.0 cm (2.0 - 3.7) AV Cusp: 2.0 cm (1.5 - 2.6) LA Diam: 3.3 cm (2.7 - 3.8) MV EXCURSION: 12.842 mm (> 18.000) MV EF SLOPE: 37 mm/s (70 - 150) EPSS: 0.5 cm MV E Clement: 0.79 m/s MV DecT: 147 ms MV A Clement: 0.98 m/s MV E/A Ratio: 0.81 RAP: 5.00 mmHg RVSP: 13.29 mmHg TAPSE: 22.91 mm FINDINGS -------- Resting tachycardia (HR>100bpm). This was a technically adequate study. The left ventricular size is normal. There is mild concentric left ventricular hypertrophy. Overa ll left ventricular systolic function is normal with, an EF between 55 - 60 %. The diastolic fillin g pattern is normal for the age of the patient 14.38. The right ventricle is normal in size. The right ventricular systolic function is normal. The left atrial size is normal. Normal LA size by volume 22+/-6 ml/m2. The right atrial size is normal. The aortic valve is trileaflet and appears structurally normal. The mitral valve is normal. There is trace mitral regurgitation. The tricuspid valve appears structurally normal. Trace tricuspid regurgitation present. Right vic tricular systolic pressure is normal at < 35 mmHg. There is no pulmonic regurgitation present. The aortic root size is normal. Normal inferior vena cava with normal inspiratory collapse consistent with estimated right atrial pre ssure of 5 mmHg. There is no pericardial effusion. CONCLUSIONS -------- 1. Resting tachycardia (HR>100bpm). 2. This was a technically adequate study. 3. The left ventricular size is normal. 4. There is mild concentric left ventricular hypertrophy. 5. Overall left ventricular systolic function is normal with, an EF between 55 - 60 %. 6. The diastolic filling pattern is normal for the age of the patient 14.38 7. The right ventricle is normal in size. 8. The right ventricular systolic function is normal. 9. The left atrial size is normal. 10. Normal LA size by volume 22+/-6 ml/m2. 11. The right atrial size is normal. 12. The aortic valve is trileaflet and appears structurally normal. 13. The mitral valve is normal. 14. There is trace mitral regurgitation. 15. The tricuspid valve appears structurally normal. 16. Trace tricuspid regurgitation present. 17. Right ventricular systolic pressure is normal at < 35 mmHg. 18. There is no pulmonic regurgitation present. 19. The aortic root size is normal. 20. Normal inferior vena cava with normal inspiratory collapse consistent with estimated right atrial pressure of 5 mmHg. 21. There is no pericardial effusion. ASSISTANT PARALEGAL: Rosi Hernandez RDCS
== END | disposition home or self-care (01) ==
LOC: RADECHMAIN 11:22
PROVIDERS: ATTEND Internal Medicine Hematology & Oncology
DX: I51.7 Cardiomegaly (principal); C50.411 Malignant neoplasm of upper-outer quadrant of right female breast; R00.0 Tachycardia, unspecified
CPT/HCPCS: 93306

== ENCOUNTER → 2019-03-09 | Outpatient (CLI) | payer BC ==
--- NOTE | 2019-03-09 21:40 | MR ---
EXAMINATION TYPE: MR brain wo/w con DATE OF EXAM: 03/09/2019 COMPARISON: NONE HISTORY: Headaches, breast ca TECHNIQUE: Multiplanar, multisequence images of the brain and brainstem is performed without and with IV contras t, utilizing 13 mL intravenous Gadavist . FINDINGS: Diffusion weighted images demonstrate no evidence of a recent infarct or other diffusion ab normality. There is no worrisome extra-axial fluid collection. Mild ventricular and sulcal prominenc e. Occasional small scattered focus of T2 hyperintensity throughout the white matter bilaterally. Les s than 10 small scattered lesions are seen. Lesions are nonspecific in appearance and distribution. F indings presume the basis of product of proximal vessel ischemic change in patient this age. Midline structures demonstrate normal morphology. The craniocervical junction appears within normal limits. Post contrast images demonstrate no abnormal enhancement. The dural venous sinuses appear pa tent. The visualized sinuses are clear and the globes are intact. IMPRESSION: Mild to minimal diffuse cerebral atrophy and nonspecific white matter changes presumed on the basis of chronic the proximal vessel ischemic change. No suspicious enhancement or enhancing mas s identified.
== END | disposition home or self-care (01) ==
LOC: RADMRIMAIN 16:13
PROVIDERS: ATTEND Internal Medicine Hematology & Oncology
DX: G31.1 Senile degeneration of brain, not elsewhere classified (principal); C50.411 Malignant neoplasm of upper-outer quadrant of right female breast; R90.82 White matter disease, unspecified
CPT/HCPCS: 70553; A9585

== ENCOUNTER 2019-03-20 14:58 | Inpatient (IN) | payer BC ==
[2019-03-20] MEDS ORDERED: AMPICILLIN-SULBACTAM 3 GM in SODIUM CHLORIDE 0.9% 100 ML IVPB STA (15:24)
--- NOTE | 2019-03-20 15:26 | ED ---
General Adult HPI - General Chief complaint: Skin/Abscess/Foreign Body Stated complaint: Infection-CA Pt Time Seen by Provider: 03/20/19 15:10 Source: patient, RN notes reviewed Mode of arrival: ambulatory Limitations: no limitations - History of Present Illness Initial comments: Patient is a pleasant 48-year-old female presenting to the emergency department with concerns regarding possible right breast infection. Patient has been on antibiotics for close to 2 weeks. Patient did have fevers however those have resolved. Patient followed up with her doctor today who recommended she come to the hospital. Patient states there has been some drainage. Area of concern is right lateral breast. Patient does have history of previous lumpectomy in this region and currently is on treatment for breast cancer. - Related Data Home Medications Medication Instructions Recorded Confirmed Levothyroxine Sodium [Synthroid] 25 mcg PO QAM 12/29/17 06/16/18 Levothyroxine Sodium [Synthroid] 200 mcg PO QAM 12/29/17 06/16/18 Ramipril [Altace] 5 mg PO QAM 12/29/17 06/16/18 Triamterene-Hctz 37.5-25Mg 1 tab PO QAM 12/29/17 06/16/18 [Maxzide 37.5-25] Dexamethasone 8 mg PO DIRECTED 02/09/18 06/16/18 Penicillin V Potassium 500 mg PO Q4HR 05/05/18 06/16/18 Ondansetron HCl [Zofran] 4 mg PO DAILY PRN 05/06/18 06/16/18 Pegfilgrastim [Neulasta Onpro] 6 mg SQ DIRECTED 05/06/18 06/16/18 Azithromycin [Zithromax Z-pack] 250 mg PO DAILY 06/16/18 06/16/18 Potassium Chloride [K-Tab ER] 40 meq PO DAILY 06/16/18 06/16/18 Allergies Allergy/AdvReac Type Severity Reaction Status Date / Time No Known Allergies Allergy Verified 03/20/19 15:05 Review of Systems ROS Statement: Those systems with pertinent positive or pertinent negative responses have been documented in the HPI. ROS Other: All systems not noted in ROS Statement are negative. Constitutional: Reports: as per HPI Eyes: Denies: eye pain ENT: Denies: ear pain Respiratory: Denies: cough, dyspnea Cardiovascular: Denies: chest pain Endocrine: Denies: fatigue Gastrointestinal: Denies: abdominal pain Genitourinary: Denies: dysuria Musculoskeletal: Denies: back pain Skin: Reports: as per HPI Neurological: Denies: weakness Past Medical History Past Medical History: Hypertension, Thyroid Disorder History of Any Multi-Drug Resistant Organisms: None Reported Past Surgical History: Breast Surgery, Section, Cholecystectomy, Hernia Repair Additional Past Surgical History / Comment(s): breast bx 2012. x2 Past Anesthesia/Blood Transfusion Reactions: No Reported Reaction Past Psychological History: No Psychological Hx Reported Smoking Status: Former smoker - Past Family History Father Family Medical History: Cancer, Diabetes Mellitus, Hypertension, Myocardial Infarction ([place]) Additional Family Medical History / Comment(s): colon Mother Family Medical History: Diabetes Mellitus Sister(s) Family Medical History: Diabetes Mellitus General Exam Limitations: no limitations General appearance: alert, in no apparent distress Head exam: Present: normocephalic Eye exam: Present: normal appearance, PERRL ENT exam: Present: normal oropharynx Neck exam: Present: normal inspection Respiratory exam: Present: normal lung sounds bilaterally Cardiovascular Exam: Present: regular rate, normal rhythm GI/Abdominal exam: Present: soft. Absent: tenderness Extremities exam: Present: normal inspection Neurological exam: Present: alert Psychiatric exam: Present: normal affect, normal mood Skin exam: Present: other (right lateral breast with erythema and swelling and tenderness) Course Vital Signs 03/20/19 03/20/19 03/20/19 15:05 15:59 16:49 Temperature 98.8 F Pulse Rate 113 H 111 H 102 H Respiratory 16 18 18 Rate Blood Pressure 139/84 137/77 147/94 O2 Sat by Pulse 97 97 99 Oximetry Medical Decision Making - Medical Decision Making case discussed with Dr. Xie who is okay with Isaura and will consult. She does request surgical consult. Case also discussed with Dr. Ramírez. case was discussed in detail with Dr. Flores, who will admit covering for Dr. Merino. Patient reevaluated and updated. - Lab Data Result diagrams: 03/20/19 15:55 03/20/19 15:55 Lab Results 03/20/19 03/20/19 03/20/19 Range/Units 15:55 15:55 15:55 WBC 10.1 (3.8-10.6) k/uL RBC 4.89 (3.80-5.40) m/uL Hgb 11.9 (11.4-16.0) gm/dL Hct 36.5 (34.0-46.0) % MCV 74.7 L (80.0-100.0) fL MCH 24.3 L (25.0-35.0) pg MCHC 32.6 (31.0-37.0) g/dL RDW 17.2 H (11.5-15.5) % Plt Count 244 (150-450) k/uL Neutrophils % 77 % Lymphocytes % 13 % Monocytes % 7 % Eosinophils % 2 % Basophils % 0 % Neutrophils # 7.7 (1.3-7.7) k/uL Lymphocytes # 1.3 (1.0-4.8) k/uL Monocytes # 0.7 (0-1.0) k/uL Eosinophils # 0.2 (0-0.7) k/uL Basophils # 0.0 (0-0.2) k/uL Anisocytosis Slight Microcytosis Slight PT (9.0-12.0) sec INR (<1.2) APTT (22.0-30.0) sec Sodium 137 (137-145) mmol/L Potassium 3.6 (3.5-5.1) mmol/L Chloride 103 (98-107) mmol/L Carbon Dioxide 25 (22-30) mmol/L Anion Gap 9 mmol/L BUN 16 (7-17) mg/dL Creatinine 0.65 (0.52-1.04) mg/dL Est GFR (CKD-EPI)AfAm >90 (>60 ml/min/1.73 sqM) Est GFR (CKD-EPI)NonAf >90 (>60 ml/min/1.73 sqM) Glucose 106 H (74-99) mg/dL Plasma Lactic Acid Perez 1.0 (0.7-2.0) mmol/L Calcium 9.7 (8.4-10.2) mg/dL Total Bilirubin 1.2 (0.2-1.3) mg/dL AST 63 H (14-36) U/L ALT 31 (4-34) U/L Alkaline Phosphatase 165 H (38-126) U/L Total Protein 6.8 (6.3-8.2) g/dL Albumin 3.8 (3.5-5.0) g/dL 03/20/19 Range/Units 15:55 WBC (3.8-10.6) k/uL RBC (3.80-5.40) m/uL Hgb (11.4-16.0) gm/dL Hct (34.0-46.0) % MCV (80.0-100.0) fL MCH (25.0-35.0) pg MCHC (31.0-37.0) g/dL RDW (11.5-15.5) % Plt Count (150-450) k/uL Neutrophils % % Lymphocytes % % Monocytes % % Eosinophils % % Basophils % % Neutrophils # (1.3-7.7) k/uL Lymphocytes # (1.0-4.8) k/uL Monocytes # (0-1.0) k/uL Eosinophils # (0-0.7) k/uL Basophils # (0-0.2) k/uL Anisocytosis Microcytosis PT 9.9 (9.0-12.0) sec INR 0.9 (<1.2) APTT 28.2 (22.0-30.0) sec Sodium (137-145) mmol/L Potassium (3.5-5.1) mmol/L Chloride (98-107) mmol/L Carbon Dioxide (22-30) mmol/L Anion Gap mmol/L BUN (7-17) mg/dL Creatinine (0.52-1.04) mg/dL Est GFR (CKD-EPI)AfAm (>60 ml/min/1.73 sqM) Est GFR (CKD-EPI)NonAf (>60 ml/min/1.73 sqM) Glucose (74-99) mg/dL Plasma Lactic Acid Perez (0.7-2.0) mmol/L Calcium (8.4-10.2) mg/dL Total Bilirubin (0.2-1.3) mg/dL AST (14-36) U/L ALT (4-34) U/L Alkaline Phosphatase (38-126) U/L Total Protein (6.3-8.2) g/dL Albumin (3.5-5.0) g/dL Disposition Clinical Impression: Cellulitis of breast Disposition: ADMITTED IP TO THIS HOSP Is patient prescribed a controlled substance at d/c from ED?: No Referrals: Steph Wu MD [Primary Care Provider] - 1-2 days Decision Time: 17:01
[2019-03-20] MEDS ORDERED: SODIUM CHLORIDE 0.9% 500 ML 500 ML IV SCH (15:30)
[2019-03-20] MEDS: SODIUM CHLORIDE 0.9% 1,000 ML IV SCH ×2 (16:18→23:53)
[2019-03-20 16:29] LABS: Anisocytosis Slight; Basophils % (A) 0 %; Eosinophils # (A) 0.2 k/uL (0-0.7); Eosinophils % (A) 2 %; HCT 36.5 % (34.0-46.0); HGB 11.9 gm/dL (11.4-16.0); Lymphocytes # (A) 1.3 k/uL (1.0-4.8); Lymphocytes % (A) 13 %; MCH 24.3 pg (25.0-35.0); MCHC 32.6 g/dL (31.0-37.0); MCV 74.7 fL (80.0-100.0); Mean Platelet Volume 6.8; Microcytosis Slight; Monocytes # (A) 0.7 k/uL (0-1.0); Monocytes % (A) 7 %; Neutrophils # (A) 7.7 k/uL (1.3-7.7); Neutrophils % (A) 77 %; Platelet Count 244 k/uL (150-450); RBC 4.89 m/uL (3.80-5.40); RDW 17.2 % (11.5-15.5); WBC 10.1 k/uL (3.8-10.6)
[2019-03-20 16:48] LABS: INR 0.9 (<1.2); Partial Thromboplastin Time 28.2 sec (22.0-30.0); Prothrombin Time 9.9 sec (9.0-12.0)
[2019-03-20 16:53] LABS: ALT 31 U/L (4-34); AST 63 U/L (14-36); African American GFR (CKD) >90 (>60 ml/min/1.73 sqM); Albumin 3.8 g/dL (3.5-5.0); Alkaline Phosphatase 165 U/L (38-126); Anion Gap 9 mmol/L; Blood Urea Nitrogen 16 mg/dL (7-17); Calcium 9.7 mg/dL (8.4-10.2); Carbon Dioxide 25 mmol/L (22-30); Chloride 103 mmol/L (98-107); Glucose 106 mg/dL (74-99); Non-African American GFR(CKD) >90 (>60 ml/min/1.73 sqM); Potassium 3.6 mmol/L (3.5-5.1); Sodium 137 mmol/L (137-145); Total Bilirubin 1.2 mg/dL (0.2-1.3); Total Protein 6.8 g/dL (6.3-8.2)
[2019-03-20] MEDS ORDERED: NALOXONE 0.4 MG/ML 1 ML VIAL IV PRN (17:01)
--- NOTE | 2019-03-20 17:28 | P.HPIM ---
History of Present Illness H&P Date: 03/20/19 Chief Complaint: right breast cellulitis 48-year-old female with PMH of breast cancer diagnosed December [address] Long has undergone chemotherapy, radiation and surgery, hypothyroidism and hypertension presents the ED for right breast pain swelling and erythema. P atient states that she has been suffering with right breast cellulitis over the past 3 weeks. She was given 2 weeks of cephalexin by Dr. Carmichael. During her follow-up today, Dr. Long noticed her cellulitis had gotten worse which prompted the patient to come to the ED.patient otherwise has no other symptoms. She denies any headache, lower extremity edema, nausea or vomiting, fever or chills, cough, chest pain, shortness of breath, changes in urination or bowel habits. No changes in appetite or weight. No dizziness, numbness/weakness/tingling of the extremities. In the ED, she underwent ex tensive evaluation. Vital signs are stable except for pulse of 113. CBC showed microcytosis with MCV 74.7. CMP showed glucose of 106, AST 63, alkaline phosphatase 165. Patient is admitted for right breast cellulitis with hematology and ID on consult. Review of Systems Pertinent positives and negatives as discussed in HPI, a complete review of systems was performed and all other systems are negative. Past Medical History Past Medical History: Hypertension, Thyroid Disorder History of Any Multi-Drug Resistant Organisms: None Reported Past Surgical History: Breast Surgery, Section, Cholecystectomy, Hernia Repair Additional Past Surgical History / Comment(s): breast bx 2011. x2 Past Anesthesia/Blood Transfusion Reactions: No Reported Reaction Past Psychological History: No Psychological Hx Reported Smoking Status: Former smoker - Past Family History Father Family Medical History: Cancer, Diabetes Mellitus, Hypertension, Myocardial Infarction ([place]) Additional Family Medical History / Comment(s): colon Mother Family Medical History: Diabetes Mellitus Sister(s) Family Medical History: Diabetes Mellitus Medications and Allergies Home Medications Medication Instructions Recorded Confirmed Type Triamterene-Hctz 37.5-25Mg 1 tab PO QAM 12/29/17 03/20/19 History [Maxzide 37.5-25] Cephalexin [Keflex] 500 mg PO QID 03/20/19 03/20/19 History Cholecalciferol [Vitamin D3 (25 5,000 unit PO DAILY 03/20/19 03/20/19 History Mcg = 1000 Iu)] Gabapentin 800 mg PO QID 03/20/19 03/20/19 History Letrozole 2.5 mg PO DAILY 03/20/19 03/20/19 History Leuprolide/Norethindrone Acet 1 dose IM Q90D 03/20/19 03/20/19 History [Lupaneta Pk 11.25-5 mg 3Mo Kit] Levothyroxine Sodium [Synthroid] 50 mcg PO DAILY 03/20/19 03/20/19 History Multivitamins, Thera [Multivitamin 1 tab PO DAILY 03/20/19 03/20/19 History (formulary)] Nortriptyline [Pamelor] 50 mg PO DAILY 03/20/19 03/20/19 History Ramipril [Altace] 10 mg PO DAILY 03/20/19 03/20/19 History Allergies Allergy/AdvReac Type Severity Reaction Status Date / Time No Known Allergies Allergy Verified 03/20/19 17:08 Physical Exam Vitals: Vital Signs Temp Pulse Resp BP Pulse Ox 03/20/19 16:49 102 H 18 147/94 99 03/20/19 15:59 111 H 18 137/77 97 03/20/19 15:05 98.8 F 113 H 16 139/84 97 Intake and Output 03/20/19 03/20/19 03/20/19 06:59 14:59 22:59 Other: Weight 124.738 kg General: [non toxic], [no distress], [appears at stated age] Derm: [warm], [dry], [extensive erythema around the superior lateral right breast extending into the axilla, tenderness to palpation, no drainage] Head: [atraumatic], [normocephalic], [symmetric] Eyes: [EOMI], [no lid lag], [anicteric sclera] Mouth: [no lip lesion], [mucus membranes moist] Cardiovascular: [S1S2 reg], [tachycardia], [positive DP pulse bilateral], Lungs: [CTA bilateral], [no rhonchi, no rales] , [no accessory muscle use] Abdominal: [soft], [ nontender to palpation], [no guarding], [no appreciable organomegaly] Ext: [no gross muscle atrophy], [no edema], [no contractures] Neuro: [ CN II-XI grossly intact], [no focal neuro deficits] Psych: [Alert], [oriented], [appropriate affect] Results CBC & Chem 7: 03/20/19 15:55 03/20/19 15:55 Labs: Abnormal Lab Results - Last 24 Hours (Table) 03/20/19 03/20/19 Range/Units 15:55 15:55 MCV 74.7 L (80.0-100.0) fL MCH 24.3 L (25.0-35.0) pg RDW 17.2 H (11.5-15.5) % Glucose 106 H (74-99) mg/dL AST 63 H (14-36) U/L Alkaline Phosphatase 165 H (38-126) U/L Assessment and Plan Assessment: Right breast cellulitis Hypothyroidism Hypertension Elevated AST Elevated alkaline phosphatase Breast cancer Morbid obesity with BMI 39.5 Patient does not meet sepsis criteria. Lactic acid negative. Patient is afebrile with no leukocytosis. Her tachycardia is likely related to her infection. Plans: Continue Unasyn. Tylenol as needed for fever or pain. Pain control with morphine as needed. Continue normal saline at 130 mL/h. Follow ultrasound of the right breast. Follow blood cultures. Plans: Continue Synthroid. Plans: Continue triamterene, hydrochlorothiazide and ramipril. Monitor vitals, adjust medications as necessary. AST 63. Likely related to ongoing chemotherapy. Plans: Follow hepatitis panel. Follow lipid panel. Alkaline phosphatase 165. Likely due to vitamin D deficiency as she is on sup plementation at home. Total bilirubin within normal limits. Plans: We'll continue to monitor. Continue taking vitamin D on discharge. Plans: Continue Letrozole. Follow oncology consultation. Plans: Structured weight loss program. DVT prophylaxis: [heparin] Discussed with: [patient] Anticipated discharge: [1-2 days] Anticipated discharge place: [home] A total of [45] minutes was spent on the care of this complex patient more than 50% of the time was spent in counseling and care coordination. Patient names her Jass decision-maker if she can't make decisions for herself. Patient would like to be full code at this time.
--- NOTE | 2019-03-20 18:10 | USB ---
EXAMINATION TYPE: US breast limited RT DATE OF EXAM: 03/20/2019 COMPARISON: US, Mammogram CLINICAL HISTORY: infection, evaluate for abscess. Infection, evaluate for abscess. Hx right-sided br east cancer. Lumpectomy 06/28/2018. Scanned area of concern right breast 10:00. Complex area seen measurin.6 x 4.0 x 4.1 cm. *Limited exam. Patient needs follow up with [facility]. IMPRESSION: There is a 4 cm mass with internal echoes in the 10:00 position of the right breast. The re is posterior enhancement that suggests complex fluid. [place] are irregular. This could relate to an abscess. Complex hematoma or necrotic tumor also possible.
[2019-03-20] MEDS: GABAPENTIN 400 MG CAP PO SCH ×2 (19:48→21:41)
[2019-03-20] MEDS: ACETAMINOPHEN TAB 325 MG TAB PO PRN (19:59)
[2019-03-20] MEDS: NORTRIPTYLINE 25 MG CAP PO SCH (21:41)
[2019-03-20] MEDS: AMPICILLIN-SULBACTAM 3 GM in SODIUM CHLORIDE 0.9% 100 ML IVPB SCH (23:53)
[2019-03-20] MEDS: MORPHINE SULFATE 4 MG/ML SYRINGE IV PRN (23:55)
[2019-03-21] MEDS: HEPARIN SODIUM,PORCINE 5,000 UNIT/ML 1 ML VIAL SQ SCH ×4 (00:27→21:34)
[2019-03-21 07:58] LABS: Cholesterol 190 mg/dL (<200); HDL Cholesterol 39 mg/dL (40-60); LDL Cholesterol,Calculated 122 mg/dL (0-99); Triglycerides 143 mg/dL (<150)
[2019-03-21] MEDS: SODIUM CHLORIDE 0.9% 1,000 ML IV SCH ×3 (08:11→21:33)
[2019-03-21] MEDS: LETROZOLE 2.5 MG TAB PO SCH (08:15)
[2019-03-21] MEDS: LEVOTHYROXINE 50 MCG TAB PO SCH (08:15)
[2019-03-21] MEDS: TRIAMTERENE-HCTZ 37.5-25MG 1 EACH TAB PO SCH (08:15)
[2019-03-21] MEDS: LISINOPRIL 20 MG TAB PO SCH (08:15)
[2019-03-21] MEDS: GABAPENTIN 400 MG CAP PO SCH ×4 (08:15→21:11)
[2019-03-21] MEDS: AMPICILLIN-SULBACTAM 3 GM in SODIUM CHLORIDE 0.9% 100 ML IVPB SCH ×3 (08:16→23:13)
[2019-03-21] MEDS ORDERED: NORTRIPTYLINE 25 MG CAP PO SCH (09:00)
[2019-03-21 12:43] LABS: Hepatitis A Antibody IgM Non-Reactive (Non-Reactive); Hepatitis B Core IgM Non-Reactive (Non-Reactive); Hepatitis B Surface Antigen Non-Reactive (Non-Reactive); Hepatitis C IgG Antibody Non-Reactive (Non-Reactive)
--- NOTE | 2019-03-21 14:25 | P.CONS ---
History of Present Illness - Reason for Consult Consult date: 03/21/19 breast cancer Requesting physician: Alonso Fletcher - Chief Complaint fever, right axillary pain, swelling, infection - History of Present Illness Mrs. Jung ward is a very pleasant female patient very well-known to Dr. Long. Patient had a history of iron deficient anemia secondary to gastric bypass surgery. She presented with a palpable right breast mass around November 2017. Diagnostic mammogram and ultrasound revealed a 2.8 x 2.5 x 1.8 cm suspicious lesion at the 10:00 area. There was another lesion at the axillary tail and another less suspicious lesion at the 11:00 area, one small lesion in the left breast. 01/07/18 core biopsies of the lesion at 10:00 and the one in axillary tail of the right breast were both positive for invasive ductal carcinoma, grade 2, ER 90%, TX 20% and HER-2 ashlyn positive, biopsy of left breast lesion was negative. CancerNext expanded panel was negative. 01/25/18, CT CAP revealed the right breast mass, right axillary node, no evidence of systemic disease, bone scan was negative. Patient was started on neoadjuvant TCHP on 02/09/18. She completed 6 cycles in May 2018. June 02, 2018 she had a right breast lumpectomy with axillary node dissection, final path revealed [id number] disease, 1.3cm invasive cancer in her breast and 2/11 nodes were positive. She was put on adjuvant kadcyla on 07/07/18, started lupron on 07/28/18, completed adjuvant XRT on 09/13/18 and started femara. She is current on her follow-up with Dr. Long been doing well ever since. About 2 weeks ago patient saw Dr. Long with complaints of chills, low grade fever, muscle aches and headaches and erythema and pain in right breast, skin red, hot, she was started on keflex and the fever had resolved, but symptoms of redness, swelling persisted. Due to patient's incomplete response to oral antibiotic therapy, patient was recommended to be admitted to the hospital for IV antibiotics and Infectious Disease consult. Patient has had no fever since admit, she has had scant amounts of drainage, the skin in the axilla area and the breast area are certainly irritated, warm to the touch, visually looks like it is about to erupt, other skin changes likely related to treatment and radiation. Patient has no other complaints on a 14 point review of systems. Review of Systems 14 point review of systems is negative except as stated in HPI Past Medical History Past Medical History: Cancer, Hypertension, Thyroid Disorder Additional Past Medical History / Comment(s): breast cancer(Status post neoadjuvant chemotherapy, surgery, adjuvant chemotherapy, radiation and continues on AI) History of Any Multi-Drug Resistant Organisms: None Reported Past Surgical History: Breast Surgery, Section, Cholecystectomy, Hernia Repair Additional Past Surgical History / Comment(s): breast bx. x2 Past Anesthesia/Blood Transfusion Reactions: No Reported Reaction Past Psychological History: No Psychological Hx Reported Smoking Status: Former smoker Past Alcohol Use History: None Reported Past Drug Use History: None Reported - Past Family History Father Family Medical History: Cancer, Diabetes Mellitus, Hypertension, Myocardial Infarction ([place]) Additional Family Medical History / Comment(s): colon Mother Family Medical History: Diabetes Mellitus Sister(s) Family Medical History: Diabetes Mellitus Medications and Allergies Home Medications Medication Instructions Recorded Confirmed Type Triamterene-Hctz 37.5-25Mg 1 tab PO QAM 12/29/17 03/20/19 History [Maxzide 37.5-25] Cephalexin [Keflex] 500 mg PO QID 03/20/19 03/20/19 History Cholecalciferol [Vitamin D3 (25 5,000 unit PO DAILY 03/20/19 03/20/19 History Mcg = 1000 Iu)] Gabapentin 800 mg PO QID 03/20/19 03/20/19 History Letrozole 2.5 mg PO DAILY 03/20/19 03/20/19 History Leuprolide/Norethindrone Acet 1 dose IM Q90D 03/20/19 03/20/19 History [Lupaneta Pk 11.25-5 mg 3Mo Kit] Levothyroxine Sodium [Synthroid] 50 mcg PO DAILY 03/20/19 03/20/19 History Multivitamins, Thera [Multivitamin 1 tab PO DAILY 03/20/19 03/20/19 History (formulary)] Nortriptyline [Pamelor] 50 mg PO DAILY 03/20/19 03/20/19 History Ramipril [Altace] 10 mg PO DAILY 03/20/19 03/20/19 History Allergies Allergy/AdvReac Type Severity Reaction Status Date / Time No Known Allergies Allergy Verified 03/20/19 17:08 Physical Exam Vitals: Vital Signs Temp Pulse Pulse Resp BP BP Pulse Ox 03/21/19 11:19 98.4 F 89 18 126/76 98 03/21/19 05:00 97.6 F 76 16 116/70 03/21/19 00:00 16 03/20/19 21:00 97.3 F L 69 16 121/73 97 03/20/19 18:03 97.9 F 104 H 18 140/97 97 03/20/19 17:26 98.8 F 99 18 150/90 99 03/20/19 16:49 102 H 18 147/94 99 03/20/19 15:59 111 H 18 137/77 97 03/20/19 15:05 98.8 F 113 H 16 139/84 97 Intake and Output 03/20/19 03/21/19 03/21/19 22:59 06:59 14:59 Intake Total 1690 1500 Balance 1690 1500 Intake: Intake, IV Titration 490 1140 Amount Ampicillin-Sulbactam 3 gm 100 100 In Sodium Chloride 0.9% 100 ml @ 200 mls/hr IVPB Q8HR [facility] Rx#:[id number] Sodium Chloride 0.9% 1, 390 1040 000 ml @ 130 mls/hr IV . Q7H42M [facility] Rx#:[id number] Oral 1200 360 Other: # Voids 2 2 Weight 124.738 kg - Constitutional General appearance: cooperative, no acute distress, obese - EENT Eyes: anicteric sclerae, EOMI ENT: hearing grossly normal, normal oropharynx - Neck Neck: no lymphadenopathy - Respiratory Respiratory: bilateral: CTA - Cardiovascular Rhythm: regular Heart sounds: normal: S1, S2 Abnormal Heart Sounds: no systolic murmur, no diastolic murmur, no rub, no S3 Gallop, no S4 Gallop, no click, no other leg Peripheral Edema: bilateral: None - Gastrointestinal General gastrointestinal: no absent bowel sounds, no decreased bowel sounds, no distended, no hepatomegaly, no hyperactive bowel sounds, normal bowel sounds, no organomegaly, no rigid, no scaphoid, soft, no splenomegaly, no tenderness, no umbilical hernia, no ventral hernia - Integumentary Right lateral breast and axilla, skin changes secondary to treatment, approximately 10 cm oblong area in the anterior axilla is red, warm to touch, tender, area does have an 1cm head that looks like it is about to erupt. - Neurologic Neurologic: CNII-XII intact - Musculoskeletal Musculoskeletal: strength equal bilaterally - Psychiatric Psychiatric: A&O x's 3, appropriate affect, intact judgment & insight Results CBC & Chem 7: 03/20/19 15:55 03/20/19 15:55 Labs: Abnormal Lab Results - Last 24 Hours (Table) 03/20/19 03/20/19 03/20/19 Range/Units 15:55 15:55 15:55 MCV 74.7 L (80.0-100.0) fL MCH 24.3 L (25.0-35.0) pg RDW 17.2 H (11.5-15.5) % Glucose 106 H (74-99) mg/dL AST 63 H (14-36) U/L Alkaline Phosphatase 165 H (38-126) U/L LDL Cholesterol, Calc 122 H (0-99) mg/dL HDL Cholesterol 39 L (40-60) mg/dL Comments: US of breast report reviewed Assessment and Plan (1) Cellulitis of breast Narrative/Plan: Infectious disease contact consult. Cultures. Antibiotics. Current Visit: Yes Status: Acute Priority: High Code(s): N61.0 - MASTITIS WITHOUT ABSCESS SNOMED Code(s): 42446060 (2) Breast cancer Narrative/Plan: Dr. Long reviewed the ultrasound report, does not feel breast cancer recurrence. Patient has had quite a bit a treatment in the area that puts her at higher risk for infection in the area. He agrees with treatment of infection. Patient will continue on her letrozole as prescribed for breast cancer. She will continue with her follow-ups as prescribed. Current Visit: No Status: Chronic Priority: Low Code(s): C50.919 - MALIGNANT NEOPLASM OF UNSP SITE OF UNSPECIFIED FEMALE BREAST SNOMED Code(s): 544502013
[2019-03-21] MEDS ORDERED: VANCOMYCIN IV PER PHARMACY 1 EACH MISC MISCELLANE PRN (16:49)
--- NOTE | 2019-03-21 17:01 | P.PN ---
Subjective Progress Note Date: 03/21/19 (delayed charting seen at 2 pm) Principal diagnosis: right breast redness Patient is a 48-year-old female with a past medical history of breast cancer status post chemo and radiation on Letrozole, Kadcyla, and lupron, iron deficiency anemia, HTN ad hypothyroidism who presented to the emergency department with worsening right breast pain and redness. On arrival to the ER she underwent an extensive evaluation. Her pulse rate was 113 remainder of vital signs were within normal limits. Initial laboratory analysis showed a slightly elevated alk phos at 165, AST 63, LDL 122, HDL 39. White blood cell count was normal. Her breast ultrasound showed a 4 cm mass with internal echoes at the 10 o'clock position on the right breast with posterior enhancement suggesting complex fluid with irregular stiles which could relate to an abscess, complex hematoma, or necrotic tumor. She had already completed a two-week course of Keflex through Dr. Carmichael her oncologist without improvement. She was admitted for cellulitis failed outpatient treatment and was started on Unasyn. Oncology was consulted and does not feel this is disease recurrence/progression but is more likely related to infection. ID was also consulted. Patient seen and examined at bedside. She reports that she first noticed right- sided redness and swelling approximately 3 weeks ago. It took her about a week to get in to see Dr. Carmichael and she completed a two-week course of Keflex. On 03/19 she noticed that her breasts was more red, more swollen, and now appear to be draining yellow fluid when she called Dr. Carmichael he directed her to come to the emergency department. She currently has intermittent breast pain that is controlled at this point in time. She states it does intermittently hurt. She denies any chest pain, shortness of breath. She denies any injury or abrasions to either the breast or the axilla. Had lumpectomy done at [facility] and then had seroma X 2 that was drained. States that the PA and the surgeon's office told her they could not keep draining the seroma. Objective - Vital Signs Vital signs: Vital Signs Temp 98.4 F 03/21/19 11:19 Pulse 89 03/21/19 11:19 Resp 18 03/21/19 11:19 BP 126/76 03/21/19 11:19 Pulse Ox 98 03/21/19 11:19 Intake & Output 03/20/19 03/21/19 03/21/19 18:59 06:59 18:59 Intake Total 3190 Balance 3190 Weight 124.738 kg Intake: Intake, IV Titration 1630 Amount Ampicillin-Sulbactam 3 gm 200 In Sodium Chloride 0.9% 100 ml @ 200 mls/hr IVPB Q8HR [facility] Rx#:[id number] Sodium Chloride 0.9% 1, 1430 000 ml @ 130 mls/hr IV . Q7H42M [facility] Rx#:[id number] Oral 1560 Other: # Voids 2 - Exam General: no distress, appears at stated age, Obese Breast: Induration and swelling of the right breast with contracute of skin un stormy axilla and some areas that appear to be opening. Derm: warm, dry Head: atraumatic, normocephalic, symmetric Eyes: EOMI, no lid lag, anicteric sclera Mouth: no lip lesion, mucus membranes moist Cardiovascular: S1S2 reg, no murmur, positive posterior tibial pulse bilateral, Lungs: CTA bilateral, no rhonchi, no rales , no accessory muscle use Abdominal: soft, nontender to palpation, no guarding, no appreciable organomegaly Ext: no gross muscle atrophy, no edema, no contractures Neuro: CN II-XI grossly intact, no focal neuro deficits Psych: Alert, oriented, appropriate affect - Labs CBC & Chem 7: 03/20/19 15:55 03/20/19 15:55 Labs: Abnormal Lab Results - Last 24 Hours (Table) 03/20/19 03/20/19 03/20/19 Range/Units 15:55 15:55 15:55 MCV 74.7 L (80.0-100.0) fL MCH 24.3 L (25.0-35.0) pg RDW 17.2 H (11.5-15.5) % Glucose 106 H (74-99) mg/dL AST 63 H (14-36) U/L Alkaline Phosphatase 165 H (38-126) U/L LDL Cholesterol, Calc 122 H (0-99) mg/dL HDL Cholesterol 39 L (40-60) mg/dL Assessment and Plan Assessment: Right breast cellulitis with possible abscess, failed outpatient antibiotics -Continue with Unasyn, and vancomycin -Consult surgery -Await infectious disease recommendations -Concern for possible abscess formation and need for drainage Breast cancer - oncology recs appreciated - They feel that likely not related to Cancer but infection per charting Hypertension - continue with ACEI, diuretics - follow BP Hypothyroidism - synthroid Tranaminitis - hep profile negative - chronic - repeat CMP in AM Morbid obesity with BMI 39.5 -Status post gastric bypass -Outpatient weight loss Recommened inpatient status with anticipated lenght of stay greater than 2 midnights for treatment of Right breast cellulitis failed outpatient treatment with concerns of abscess formation. DVT prophylaxis:Heparin Discussed with: patient, nursing, Roselia Cazares NP Anticipated discharge: 3-[address]: home A total of 45 minutes was spent on the care of this complex patient more than 50% of the time was spent in counseling and care coordination.
[2019-03-21] MEDS ORDERED: VANCOMYCIN 2,000 MG in SODIUM CHLORIDE 0.9% 500 ML 500 ML IVPB ONE (17:30)
[2019-03-21] MEDS: ACETAMINOPHEN TAB 325 MG TAB PO PRN (17:56)
[2019-03-21] MEDS ORDERED: ALPRAZolam 0.25 MG TAB PO PRN (18:28)
--- NOTE | 2019-03-21 20:51 | P.GSCN ---
History of Present Illness Consult date: 03/21/19 Reason for Consult: Right breast pain and swelling History of present illness: 48-year-old female with history of HER-2 positive right breast cancer. Patient underwent right breast lumpectomy with axillary node dissection. This was following neoadjuvant therapy. Patient was found to have 2 out of 11 lymph nodes positive for metastasis. Complete pathologic response on lumpectomy specimen. She has had postoperative seroma drained as recently she states is 3 months ago by her primary surgeon at [facility]. Over the last week or 2 has had progressive redness pain and swelling upper outer quadrant right breast near the previous incision site. She was on Keflex as an outpatient without improvement. Apparently she was having fevers and chills at one point. No fevers during this hospitalization. White blood cell count is normal. Clinical suspicion for recurrence per oncology is low. Patient started having some drainage from small skin wounds recently. Patient did receive adjuvant radiation. Port-A-Cath remains in place. Remains on adjuvant chemotherapy and normal therapy. Ultrasound showed abscess versus necrotic tumor. Review of Systems My review of system Past Medical History Past Medical History: Cancer, Hypertension, Thyroid Disorder Additional Past Medical History / Comment(s): breast cancer(Status post neoad juvant chemotherapy, surgery, adjuvant chemotherapy, radiation and continues on AI) History of Any Multi-Drug Resistant Organisms: None Reported Past Surgical History: Breast Surgery, Section, Cholecystectomy, Hernia Repair Additional Past Surgical History / Comment(s): breast bx. x2 Past Anesthesia/Blood Transfusion Reactions: No Reported Reaction Past Psychological History: No Psychological Hx Reported Smoking Status: Former smoker Past Alcohol Use History: None Reported Past Drug Use History: None Reported - Past Family History Father Family Medical History: Cancer, Diabetes Mellitus, Hypertension, Myocardial Infa rction (DC) Additional Family Medical History / Comment(s): colon Mother Family Medical History: Diabetes Mellitus Sister(s) Family Medical History: Diabetes Mellitus Medications and Allergies Home Medications Medication Instructions Recorded Confirmed Type Triamterene-Hctz 37.5-25Mg 1 tab PO QAM 12/29/17 03/20/19 History [Maxzide 37.5-25] Cephalexin [Keflex] 500 mg PO QID 03/20/19 03/20/19 History Cholecalciferol [Vitamin D3 (25 5,000 unit PO DAILY 03/20/19 03/20/19 History Mcg = 1000 Iu)] Gabapentin 800 mg PO QID 03/20/19 03/20/19 History Letrozole 2.5 mg PO DAILY 03/20/19 03/20/19 History Leuprolide/Norethindrone Acet 1 dose IM Q90D 03/20/19 03/20/19 History [Lupaneta Pk 11.25-5 mg 3Mo Kit] Levothyroxine Sodium [Synthroid] 50 mcg PO DAILY 03/20/19 03/20/19 History Multivitamins, Thera [Multivitamin 1 tab PO DAILY 03/20/19 03/20/19 History (formulary)] Nortriptyline [Pamelor] 50 mg PO DAILY 03/20/19 03/20/19 History Ramipril [Altace] 10 mg PO DAILY 03/20/19 03/20/19 History Allergies Allergy/AdvReac Type Severity Reaction Status Date / Time No Known Allergies Allergy Verified 03/20/19 17:08 Surgical - Exam Vital Signs Temp Pulse Resp BP Pulse Ox 98.8 F 113 H 16 139/84 97 03/20/19 15:05 03/20/19 15:05 03/20/19 15:05 03/20/19 15:05 03/20/19 15:05 Physical exam: General: Well-developed, well-nourished HEENT: Normocephalic, sclerae nonicteric Abdomen: Nontender, nondistended Right breast: Erythema, tenderness, and edema involving the majority of the breast, difficult to visualize previous lumpectomy scar, swelling erythema and pain most impressive in the upper outer quadrant, small skin wounds present with serous drainage, no purulence seen, unable to palpate adenopathy Extremities: No edema Neuro: Alert and oriented Results - Labs 03/20/19 15:55 03/20/19 15:55 Abnormal Lab Results - Last 24 Hours (Table) 03/20/19 Range/Units 15:55 LDL Cholesterol, Calc 122 H (0-99) mg/dL HDL Cholesterol 39 L (40-60) mg/dL Microbiology - Last 24 Hours (Table) 03/20/19 15:55 Blood Culture - Preliminary Blood No Growth after 24 hours Diabetes panel 03/20/19 Range/Units 15:55 Triglycerides 143 (<150) mg/dL HDL Cholesterol 39 L (40-60) mg/dL Assessment and Plan (1) Cellulitis of breast Narrative/Plan: 48-year-old female with erythema and tenderness with drainage from wounds right breast upper outer quadrant. Suspect probable cellulitis with underlying infec juan seroma cavity. We'll proceed with incision and drainage and biopsy tomorrow. Risks of bleeding, infection, wound formation, poor healing, potential need for additional surgical intervention reviewed. She understands and wishes to proceed. Current Visit: Yes Status: Acute Priority: High Code(s): N61.0 - MASTITIS WITHOUT ABSCESS SNOMED Code(s): 75407535
[2019-03-21] MEDS: NORTRIPTYLINE 25 MG CAP PO SCH (21:12)
--- NOTE | 2019-03-21 23:39 | CONS ---
CONSULTATION DATE OF SERVICE: 03/21/2019 REASON FOR CONSULTATION: Right breast abscess and cellulitis. HISTORY OF PRESENT ILLNESS: The patient is a 48-year-old female with a past medical history significant for right breast cancer, for which the patient underwent lumpectomy and axillary node dissection followed by neoadjuvant chemotherapy. The patient seemed to have a problem with a postoperative seroma that apparently has been drained last 3 months ago by her surgeon at [facility]. The patient seems to have a problem with more swelling of the right breast area that apparently has been going on for more than a week now. The patient is also complaining of swelling with associated redness and pain and did have some fever, for which the patient has been started on oral Keflex in the outpatient setting, taking it 500 mg every 6 hours. The patient mentioned that the fever resolved with Keflex. However, she still had significant swelling and redness and then started having a little bit of purulent drainage, for which the patient has been admitted to the hospital. On arrival in the ER, the patient has been afebrile. Her white count has been normal. The patient did have a breast ultrasound completed which showed a right breast complex mass around 3.6 x 4 x 4.1 cm. The patient did have blood cultures, which have been negative so far. I was told the patient did have cultures obtained which I currently do not see in the system. The patient currently has been treated with Unasyn and vancomycin. Infectious Disease was consulted for further recommendation regarding antibiotic therapy. The patient is describing the pain to the right breast to be more of a dull aching and at times sharp, intensity about 5, more if the area is touched, and no significant radiation. REVIEW OF SYSTEMS: CONSTITUTIONAL: Positive for weakness and fever. EYES: No complaint. ENT: No complaint. RESPIRATORY: No complaint. CARDIOVASCULAR: No complaint. GENITOURINARY: No complaint. GASTROINTESTINAL: No complaint. MUSCULOSKELETAL: No complaint. INTEGUMENTARY: As per HPI. PSYCHOLOGICAL: No complaint. ENDOCRINE: No complaint. NEUROLOGICAL: No complaint. PAST MEDICAL HISTORY: 1. Hypertension. 2. Hypothyroidism. 3. Breast cancer. PAST SURGICAL HISTORY: 1. Breast biopsy x2. 2. Lumpectomy. 3. . 4. Cholecystectomy. 5. Hernia repair. SOCIAL HISTORY: Remote history of smoking. No drinking or drug use. FAMILY HISTORY: Father with history of diabetes, hypertension, [place] and cancer. ALLERGIES: NO KNOWN DRUG ALLERGIES. MEDICATIONS: The patient is currently on: 1. Vancomycin 2 grams q.8. 2. Maxzide. 3. Pamelor. 4. Narcan. 5. Morphine sulfate. 6. Zestril. 7. Synthroid. 8. Femara. 9. Heparin. 10.Neurontin. 11.Unasyn. 12.Xanax. 13.Kihei. 14.Tylenol. PHYSICAL EXAMINATION: Blood pressure 125/74 with a pulse of 104, temperature 99.3. She is 96% on room air. General description is a middle-aged female up in the chair in no distress. No tachypnea or accessory muscle of respiration use. HEENT EXAMINATION: No pallor or scleral icterus. Oral mucosa membrane is dry. NECK: Trachea is central. No thyromegaly. LUNGS: Unlabored breathing. Clear to auscultation. No wheeze or crackle. HEART: S1, S2. Regular rate and rhythm. ABDOMEN: Soft. No tenderness. No guarding or rigidity. EXTREMITIES: No edema of the feet. EXAMINATION OF THE RIGHT BREAST: On the lateral side did have area of induration and swelling, redness with minimal purulent drainage. NEUROLOGICAL: The patient is awake, alert, oriented x3. Mood and affect normal. LABS/IMAGING: Hemoglobin is 11.9, white count 10.1. BUN of 16, creatinine 0.65. Electrolytes have been normal. Liver enzymes are normal. is negative. Blood culture so far negative. Ultrasound report as mentioned above. DIAGNOSTIC IMPRESSION AND PLAN: Patient admitted to hospital with right breast pain, swelling, redness and drainage in this patient who did have a fever with a complex mass as seen on the ultrasound with concern for infected seroma, failing outpatient oral Keflex therapy. We will need to cover for the community-associated MRSA as the likely pathogen. PLAN: 1. Await surgical drainage, at which time cultures should be obtained, both aerobic and anaerobic. 2. Vancomycin, Pharmacy to dose, target of 15, while waiting for the culture to finalize. 3. Will follow up on clinical condition and culture to further adjust medication if needed. Thank you for this consultation. Will follow this patient along with you. MMODL / IJN: [id number] /
[2019-03-22] MEDS: VANCOMYCIN 2,000 MG in SODIUM CHLORIDE 0.9% 500 ML 500 ML IVPB SCH ×3 (01:58→17:34)
[2019-03-22] MEDS: LEVOTHYROXINE 50 MCG TAB PO SCH (04:48)
[2019-03-22] MEDS: TRIAMTERENE-HCTZ 37.5-25MG 1 EACH TAB PO SCH (08:06)
[2019-03-22] MEDS: LISINOPRIL 20 MG TAB PO SCH (08:06)
[2019-03-22] MEDS: LETROZOLE 2.5 MG TAB PO SCH (08:06)
[2019-03-22] MEDS: GABAPENTIN 400 MG CAP PO SCH ×3 (08:06→17:38)
[2019-03-22] MEDS: AMPICILLIN-SULBACTAM 3 GM in SODIUM CHLORIDE 0.9% 100 ML IVPB SCH ×2 (08:07→16:31)
[2019-03-22] MEDS: HEPARIN SODIUM,PORCINE 5,000 UNIT/ML 1 ML VIAL SQ SCH ×2 (08:07→16:31)
[2019-03-22 09:27] LABS: Anisocytosis Slight; HCT 37.5 % (34.0-46.0); HGB 11.5 gm/dL (11.4-16.0); Hypochromasia Slight; MCHC 30.6 g/dL (31.0-37.0); MCV 78.5 fL (80.0-100.0); Mean Platelet Volume 6.6; Microcytosis Slight; Platelet Count 233 k/uL (150-450); RBC 4.78 m/uL (3.80-5.40); RDW 17.7 % (11.5-15.5); WBC 6.9 k/uL (3.8-10.6)
[2019-03-22 09:37] LABS: ALT 28 U/L (4-34); AST 62 U/L (14-36); African American GFR (CKD) >90 (>60 ml/min/1.73 sqM); Albumin 3.5 g/dL (3.5-5.0); Alkaline Phosphatase 154 U/L (38-126); Anion Gap 6 mmol/L; Blood Urea Nitrogen 12 mg/dL (7-17); Calcium 9.7 mg/dL (8.4-10.2); Carbon Dioxide 28 mmol/L (22-30); Chloride 105 mmol/L (98-107); Glucose 122 mg/dL (74-99); Non-African American GFR(CKD) >90 (>60 ml/min/1.73 sqM); Potassium 3.9 mmol/L (3.5-5.1); Sodium 139 mmol/L (137-145); Total Bilirubin 1.1 mg/dL (0.2-1.3); Total Protein 6.6 g/dL (6.3-8.2)
[2019-03-22] MEDS: SODIUM CHLORIDE 0.9% 1,000 ML IV SCH (12:38)
[2019-03-22] MEDS ORDERED: VANCOMYCIN TROUGH DUE 1 EACH MISC MISCELLANE ONE (17:00)
--- NOTE | 2019-03-22 18:38 | P.PN ---
Subjective Progress Note Date: 03/22/19 Principal diagnosis: Right breast infection/cellulitis/possible abscess. History of treated breast cancer In follow-up today patient states no fevers, stable irritation of the right breast, no increased pain or unusual tenderness, swelling, drainage. On antibiotics, no GI symptoms. She has no other symptoms on a 10 point review of systems Objective - Vital Signs Vital signs: Vital Signs Temp 97.6 F 03/22/19 12:06 Pulse 94 03/22/19 12:06 Resp 18 03/22/19 12:06 BP 157/84 03/22/19 12:06 Pulse Ox 99 03/22/19 12:06 Intake & Output 03/21/19 03/22/19 03/22/19 18:59 06:59 18:59 Intake Total 2320 Balance 2320 Intake: Intake, IV Titration 650 Amount Sodium Chloride 0.9% 1, 150 000 ml @ 75 mls/hr IV . [id number] [facility] Rx#:[id number] Vancomycin 2,000 mg In 500 Sodium Chloride 0.9% 500 ml 500 ml @ 167 mls/hr IVPB ONCE ONE Rx#: [id number] Oral 1670 Other: # Voids 2 2 2 # Bowel Movements 1 - Constitutional General appearance: Present: average body habitus, cooperative, no acute distress - EENT Eyes: Present: anicteric sclerae, EOMI ENT: Present: hearing grossly normal - Respiratory Respiratory: bilateral: CTA - Cardiovascular Rhythm: regular Heart sounds: normal: S1, S2 Abnormal Heart Sounds: Absent: systolic murmur, diastolic murmur, rub, S3 Gallop, S4 Gallop, click, other - Peripheral edema leg Peripheral Edema: bilateral: None - Gastrointestinal General gastrointestinal: Present: normal bowel sounds, soft - Integumentary Integumentary Comment(s): Examined the right axilla and breast, maybe a little less redness and swelling - Neurologic Neurologic: Present: CNII-XII intact - Musculoskeletal Musculoskeletal: Present: strength equal bilaterally - Psychiatric Psychiatric: Present: A&O x's 3, appropriate affect, intact judgment & insight - Labs CBC & Chem 7: 03/22/19 08:27 03/22/19 08:27 Labs: Abnormal Lab Results - Last 24 Hours (Table) 03/22/19 03/22/19 Range/Units 08:27 08:27 MCV 78.5 L (80.0-100.0) fL MCH 24.0 L (25.0-35.0) pg MCHC 30.6 L (31.0-37.0) g/dL RDW 17.7 H (11.5-15.5) % Glucose 122 H (74-99) mg/dL AST 62 H (14-36) U/L Alkaline Phosphatase 154 H (38-126) U/L Microbiology - Last 24 Hours (Table) 03/20/19 15:55 Blood Culture - Preliminary Blood No Growth after 48 hours Assessment and Plan (1) Cellulitis of breast Narrative/Plan: Infectious disease contact consult. Cultures. Antibiotics. Surgical I&D planned Current Visit: Yes Status: Acute Priority: High Code(s): N61.0 - MASTITIS WITHOUT ABSCESS SNOMED Code(s): 76176195 (2) Breast cancer Narrative/Plan: Dr. Long reviewed the ultrasound report, does not feel breast cancer recurrence. Patient has had quite a bit a treatment in the area that puts her at higher risk for infection in the area. He agrees with treatment of infection. Patient will continue on her letrozole as prescribed for breast c ancer. She will continue with her follow-ups as prescribed. Current Visit: No Status: Chronic Priority: Low Code(s): C50.919 - MALIGNANT NEOPLASM OF UNSP SITE OF UNSPECIFIED FEMALE BREAST SNOMED Code(s): 666398888
--- NOTE | 2019-03-22 19:04 | P.PN ---
Subjective Progress Note Date: 03/22/19 Principal diagnosis: Breast cellulitis Patient was scheduled today for incision and drainage and biopsy. Unfortunately the OR schedule would not accommodate this evening. Patient is having mild discomfort. T-max 99.3. White blood cell count normal. Objective - Vital Signs Vital signs: Vital Signs Temp 97.6 F 03/22/19 12:06 Pulse 94 03/22/19 12:06 Resp 18 03/22/19 12:06 BP 157/84 03/22/19 12:06 Pulse Ox 99 03/22/19 12:06 Intake & Output 03/22/19 03/22/19 03/23/19 06:59 18:59 06:59 Intake Total 2320 Balance 2320 Intake: Intake, IV Titration 650 Amount Sodium Chloride 0.9% 1, 150 000 ml @ 75 mls/hr IV . [id number] [facility] Rx#:[id number] Vancomycin 2,000 mg In 500 Sodium Chloride 0.9% 500 ml 500 ml @ 167 mls/hr IVPB ONCE ONE Rx#: [id number] Oral 1670 Other: # Voids 2 2 # Bowel Movements 1 - Exam Right breast erythema, edema, tenderness, and warmth noted, some drainage - Labs CBC & Chem 7: 03/22/19 08:27 03/22/19 08:27 Labs: Abnormal Lab Results - Last 24 Hours (Table) 03/22/19 03/22/19 Range/Units 08:27 08:27 MCV 78.5 L (80.0-100.0) fL MCH 24.0 L (25.0-35.0) pg MCHC 30.6 L (31.0-37.0) g/dL RDW 17.7 H (11.5-15.5) % Glucose 122 H (74-99) mg/dL AST 62 H (14-36) U/L Alkaline Phosphatase 154 H (38-126) U/L Microbiology - Last 24 Hours (Table) 03/20/19 15:55 Blood Culture - Preliminary Blood No Growth after 48 hours Assessment and Plan (1) Cellulitis of breast Narrative/Plan: Patient agreeable to rescheduling for tomorrow. Clear liquids for breakfast. Nothing by mouth after 9 AM tomorrow. Current Visit: Yes Status: Acute Priority: High Code(s): N61.0 - MASTITIS WITHOUT ABSCESS SNOMED Code(s): 05319587
--- NOTE | 2019-03-22 20:31 | P.PN ---
Subjective Progress Note Date: 03/22/19 (delayed charting seen at 0845) Principal diagnosis: right breast redness Patient is a 48-year-old female with a past medical history of breast cancer status post chemo and radiation on Letrozole, Kadcyla, and lupron, iron deficiency anemia, HTN ad hypothyroidism who presented to the emergency department with worsening right breast pain and redness. On arrival to the ER she underwent an extensive evaluation. Her pulse rate was 113 remainder of vital signs were within normal limits. Initial laboratory analysis showed a slightly elevated alk phos at 165, AST 63, LDL 122, HDL 39. White blood cell count was normal. Her breast ultrasound showed a 4 cm mass with internal echoes at the 10 o'clock position on the right breast with posterior enhancement suggesting complex fluid with irregular stiles which could relate to an abscess, complex hematoma, or necrotic tumor. She had already completed a two-week course of Keflex through Dr. Carmichael her oncologist without improvement. She was admitted for cellulitis failed outpatient treatment and was started on Unasyn. Oncology was consulted and does not feel this is disease recurrence/progression but is more likely related to infection. ID and surgery consulted, ronda added. Plan is for I and D of breast abscess vs infected seroma. Patient seen at bedside. Still having some right breast pain. No nausea, vomiting, diarrhea, chest pain, or shortness of breath. Feeling anxious about having a biopsy with the incision and drainage. Objective - Vital Signs Vital signs: Vital Signs Temp 97.6 F 03/22/19 12:06 Pulse 94 03/22/19 12:06 Resp 18 03/22/19 12:06 BP 157/84 03/22/19 12:06 Pulse Ox 99 03/22/19 12:06 Intake & Output 03/22/19 03/22/19 03/23/19 06:59 18:59 06:59 Intake Total 2320 Balance 2320 Intake: Intake, IV Titration 650 Amount Sodium Chloride 0.9% 1, 150 000 ml @ 75 mls/hr IV . [id number] [facility] Rx#:[id number] Vancomycin 2,000 mg In 500 Sodium Chloride 0.9% 500 ml 500 ml @ 167 mls/hr IVPB ONCE ONE Rx#: [id number] Oral 1670 Other: # Voids 2 2 # Bowel Movements 1 - Exam General: no distress, appears at stated age, Obese Breast: Induration and swelling of the right breast with contracute of skin under axilla and skin sloughing Derm: warm, dry Head: atraumatic, normocephalic, symmetric Eyes: EOMI, no lid lag, anicteric sclera Mouth: no lip lesion, mucus membranes moist Cardiovascular: S1S2 reg, no murmur, positive posterior tibial pulse bilateral, Lungs: CTA bilateral, no rhonchi, no rales , no accessory muscle use Abdominal: soft, nontender to palpation, no guarding, no appreciable organomegaly Ext: no gross muscle atrophy, no edema, no contractures Neuro: CN II-XI grossly intact, no focal neuro deficits Psych: Alert, oriented, appropriate affect - Labs CBC & Chem 7: 03/22/19 08:27 03/22/19 08:27 Labs: Abnormal Lab Results - Last 24 Hours (Table) 03/22/19 03/22/19 Range/Units 08:27 08:27 MCV 78.5 L (80.0-100.0) fL MCH 24.0 L (25.0-35.0) pg MCHC 30.6 L (31.0-37.0) g/dL RDW 17.7 H (11.5-15.5) % Glucose 122 H (74-99) mg/dL AST 62 H (14-36) U/L Alkaline Phosphatase 154 H (38-126) U/L Microbiology - Last 24 Hours (Table) 03/20/19 15:55 Blood Culture - Preliminary Blood No Growth after 48 hours Assessment and Plan Assessment: Right breast cellulitis with possible abscess, failed outpatient antibiotics -Continue with Unasyn and vancomycin -surgery recs appreciated I and D planned for 03/23 with biopsy -ID recs appreciated -Concern for possible abscess formation and need for drainage Breast cancer - oncology recs appreciated - They feel that likely not related to Cancer but infection Hypertension - continue with ACEI, diuretics - follow BP Hypothyroidism - synthroid Tranaminitis - hep profile negative - chronic - repeat CMP in AM Morbid obesity with BMI 39.5 -Status post gastric bypass -Outpatient weight loss DVT prophylaxis:Heparin Discussed with: patient, nursing, Roselia Cazares NP Anticipated discharge: 3-[address]: home A total of 35 minutes was spent on the care of this complex patient more than 50% of the time was spent in counseling and care coordination.
--- NOTE | 2019-03-22 22:48 | PN ---
PROGRESS NOTE DATE OF SERVICE: 03/22/2019. REASON FOR FOLLOWUP: Right breast abscess and cellulitis. INTERVAL HISTORY: The patient is currently afebrile. The patient has been breathing comfortably. The patient denies having any chest pain or shortness of breath or cough. No nausea, no vomiting. No abdominal pain or any diarrhea. PHYSICAL EXAMINATION: On examination, her blood pressure is 157/84 with a pulse of 94. Temperature 97.6. General description is a middle-aged female lying in bed in no distress. Respiratory system: Unlabored breathing, clear to auscultation anteriorly. Heart: S1, S2. Regular rate and rhythm. Abdomen soft. No tenderness. LABS: Hemoglobin 11.5, white count 6.9, BUN of 12, creatinine 0.69. DIAGNOSTIC IMPRESSION AND PLAN: Patient with right breast infected seroma/abscess for I and D tomorrow at which time deep cultures will be obtained, both aerobic and anaerobic. The patient is covered with Unasyn and vancomycin, to continue. We will adjust antibiotics further based on the culture report. May benefit from outpatient IV antibiotic on discharge. Continue supportive care. MMODL / IJN: [id number] /
[2019-03-22] MEDS: HYDROcodone/APAP 5-325MG 1 EACH TAB PO PRN (22:57)
[2019-03-22] MEDS: TEMAZEPAM 15 MG CAP PO PRN (22:58)
[2019-03-23] MEDS: GABAPENTIN 400 MG CAP PO SCH ×5 (01:04→21:52)
[2019-03-23] MEDS: HEPARIN SODIUM,PORCINE 5,000 UNIT/ML 1 ML VIAL SQ SCH ×3 (01:04→11:00)
[2019-03-23] MEDS: AMPICILLIN-SULBACTAM 3 GM in SODIUM CHLORIDE 0.9% 100 ML IVPB SCH ×3 (01:05→15:25)
[2019-03-23] MEDS: NORTRIPTYLINE 25 MG CAP PO SCH ×2 (01:33→21:52)
[2019-03-23] MEDS: SODIUM CHLORIDE 0.9% 1,000 ML IV SCH ×3 (03:25→17:21)
[2019-03-23] MEDS: LEVOTHYROXINE 50 MCG TAB PO SCH (06:12)
[2019-03-23] MEDS: LISINOPRIL 20 MG TAB PO SCH (08:35)
[2019-03-23] MEDS: LETROZOLE 2.5 MG TAB PO SCH (08:35)
[2019-03-23] MEDS: TRIAMTERENE-HCTZ 37.5-25MG 1 EACH TAB PO SCH (08:35)
[2019-03-23] MEDS: VANCOMYCIN 2,000 MG in SODIUM CHLORIDE 0.9% 500 ML 500 ML IVPB SCH ×2 (08:35→17:21)
[2019-03-23 08:44] LABS: African American GFR (CKD) >90 (>60 ml/min/1.73 sqM); Anion Gap 8 mmol/L; Blood Urea Nitrogen 12 mg/dL (7-17); Calcium 9.5 mg/dL (8.4-10.2); Carbon Dioxide 27 mmol/L (22-30); Chloride 104 mmol/L (98-107); Glucose 116 mg/dL (74-99); Non-African American GFR(CKD) >90 (>60 ml/min/1.73 sqM); Potassium 3.4 mmol/L (3.5-5.1); Sodium 139 mmol/L (137-145)
[2019-03-23 09:13] LABS: C Reactive Protein 22.4 mg/L (<10.0)
[2019-03-23 09:16] LABS: Anisocytosis Slight; Basophils # (A) 0.1 k/uL (0-0.2); Basophils % (A) 1 %; Eosinophils # (A) 0.3 k/uL (0-0.7); Eosinophils % (A) 5 %; HGB 12.1 gm/dL (11.4-16.0); Hypochromasia Slight; Lymphocytes % (A) 14 %; MCH 24.2 pg (25.0-35.0); MCHC 30.9 g/dL (31.0-37.0); MCV 78.3 fL (80.0-100.0); Mean Platelet Volume 6.6; Microcytosis Slight; Monocytes # (A) 0.6 k/uL (0-1.0); Monocytes % (A) 9 %; Neutrophils # (A) 4.7 k/uL (1.3-7.7); Neutrophils % (A) 69 %; Platelet Count 222 k/uL (150-450); RBC 4.98 m/uL (3.80-5.40); WBC 6.8 k/uL (3.8-10.6)
--- NOTE | 2019-03-23 09:29 | P.PN ---
Subjective Progress Note Date: 03/23/19 Principal diagnosis: right breast redness Patient is a 48-year-old female with a past medical history of breast cancer status post chemo and radiation on Letrozole, Kadcyla, and lupron, iron deficiency anemia, HTN ad hypothyroidism who presented to the emergency departm ent with worsening right breast pain and redness. On arrival to the ER she underwent an extensive evaluation. Her pulse rate was 113 remainder of vital signs were within normal limits. Initial laboratory analysis showed a slightly elevated alk phos at 165, AST 63, LDL 122, HDL 39. White blood cell count was normal. Her breast ultrasound showed a 4 cm mass with internal echoes at the 10 o'clock position on the right breast with posterior enhancement suggesting complex fluid with irregular stiles which could relate to an abscess, complex hematoma, or necrotic tumor. She had already completed a two-week course of Keflex through Dr. Carmichael her oncologist without improvement. She was admitted for cellulitis failed outpatient treatment and was started on Unasyn. Oncology was consulted and does not feel this is disease recurrence/progression but is more likely related to infection. ID and surgery consulted, ronda added. Plan is for I and D of breast abscess vs infected seroma. ID does feel that she may need IV abx on discharge. Patient seen and examined at bedside. Still having intermittent pain in her right breast along with some fullness. No chest pain or shortness of breath. No nausea or vomiting. Anxious to have procedure performed today. Objective - Vital Signs Vital signs: Vital Signs Temp 98.0 F 03/23/19 04:52 Pulse 91 03/23/19 04:52 Resp 16 03/23/19 04:52 BP 118/62 03/23/19 04:52 Pulse Ox 92 L 03/23/19 04:52 Intake & Output 03/22/19 03/23/19 03/23/19 18:59 06:59 18:59 Intake Total 300 Balance 300 Intake: Intake, IV Titration 300 Amount Sodium Chloride 0.9% 1, 300 000 ml @ 75 mls/hr IV . [id number] [facility] Rx#:[id number] Oral 0 Other: # Voids 2 2 - Exam General: no distress, appears at stated age, Obese Derm: warm, dry Head: atraumatic, normocephalic, symmetric Eyes: EOMI, no lid lag, anicteric sclera Mouth: no lip lesion, mucus membranes moist Cardiovascular: S1S2 reg, no murmur, positive posterior tibial pulse bilateral, Lungs: CTA bilateral, no rhonchi, no rales , no accessory muscle use Abdominal: soft, nontender to palpation, no guarding, no appreciable organomegaly Ext: no gross muscle atrophy, no edema, no contractures Neuro: CN II-XI grossly intact, no focal neuro deficits Psych: Alert, oriented, appropriate affect - Labs CBC & Chem 7: 03/23/19 07:55 03/23/19 07:55 Labs: Abnormal Lab Results - Last 24 Hours (Table) 03/22/19 03/22/19 03/23/19 Range/Units 08:27 08:27 07:55 MCV 78.5 L (80.0-100.0) fL MCH 24.0 L (25.0-35.0) pg MCHC 30.6 L (31.0-37.0) g/dL RDW 17.7 H (11.5-15.5) % Potassium 3.4 L (3.5-5.1) mmol/L Glucose 122 H 116 H (74-99) mg/dL AST 62 H (14-36) U/L Alkaline Phosphatase 154 H (38-126) U/L C-Reactive Protein 22.4 H (<10.0) mg/L 03/23/19 Range/Units 07:55 MCV 78.3 L (80.0-100.0) fL MCH 24.2 L (25.0-35.0) pg MCHC 30.9 L (31.0-37.0) g/dL RDW 18.0 H (11.5-15.5) % Potassium (3.5-5.1) mmol/L Glucose (74-99) mg/dL AST (14-36) U/L Alkaline Phosphatase (38-126) U/L C-Reactive Protein (<10.0) mg/L Microbiology - Last 24 Hours (Table) 03/20/19 15:55 Blood Culture - Preliminary Blood No Growth after 48 hours Assessment and Plan Assessment: Right breast cellulitis with abscess, failed outpatient antibiotics -Continue with Unasyn and vancomycin -surgery recs appreciated I and D with biopsy today -ID recs appreciated, possible need for outpatient IV abx - biopsy results pending - await cultures from I and D Breast cancer - oncology recs appreciated - They feel that likely not related to Cancer but infection Hypertension - continue with ACEI, diuretics - follow BP Hypothyroidism - synthroid 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
[2019-03-23] MEDS ORDERED: IV FLUID CONTINUATION 500 ML IV ONE (10:40)
[2019-03-23] MEDS ORDERED: BUPIVACAIN-EPI 0.25%-1:200,000 30 ML VIAL SQ ONE (10:50)
[2019-03-23] MEDS ORDERED: PHENYLEPHRINE-0.9% NACL SYG 1 MG/10 ML SYRINGE ONE (11:02)
[2019-03-23] MEDS ORDERED: SUCCINYLCHOLINE CHLORIDE VIAL 200 MG/10 ML VIAL IV ONE (11:02)
[2019-03-23] MEDS ORDERED: PROPOFOL 10 MG/ML 20 ML VIAL IV ONE (11:02)
[2019-03-23] MEDS ORDERED: MIDAZOLAM 2 MG/2 ML VIAL ONE (11:02)
[2019-03-23] MEDS ORDERED: fentaNYL (PF) 50 MCG/ML 2 ML AMP ONE (11:02)
[2019-03-23] MEDS ORDERED: diphenhydrAMINE 50 MG/ML 1 ML VIAL ONE (11:02)
[2019-03-23] MEDS ORDERED: LIDOCAINE 1% INJ 10MG/ML (20 ML MDV) ONE (11:02)
--- NOTE | 2019-03-23 12:04 | P.OP ---
Date of Procedure: 03/23/19 Procedure(s) Performed: PREOPERATIVE DIAGNOSIS: Right breast abscess with history of right breast cancer POSTOPERATIVE DIAGNOSIS: Same PROCEDURE: Incision and drainage biopsy and debridement right breast abscess SURGEON: Erick EBL: 20 Reilly ANESTHESIA: Gen. COMPLICATIONS: None OPERATIVE PROCEDURE: The patient was placed in the operative table in the supine position. She was then placed under general anesthesia. The patient's right prepped was prepped and draped sterilely. An elliptical incision was made encompassing the skin where the pustules were present upper outer quadrant. This portion of skin was excised fully and sent to pathology for evaluation. We entered into a subcutaneous abscess cavity that likely was the previous seroma. Cultures were taken of the pus present. Curet was used to debride the wall of the abscess cavity. Debridement was performed sharply and an excisional manner. This tissue was also sent to pathology in formalin. Size of abscess cavity 5 x 5 x 4 cm. Area irrigated with saline. Packed with Heriberto gauze. Sterile outer dressing applied. DISPOSITION: Stable to recovery room
[2019-03-23] MEDS: HYDROcodone/APAP 5-325MG 1 EACH TAB PO PRN ×3 (13:14→22:34)
[2019-03-23] MEDS: MORPHINE SULFATE 4 MG/ML SYRINGE IV PRN ×2 (16:23→21:50)
--- NOTE | 2019-03-23 22:55 | PN ---
PROGRESS NOTE DATE OF SERVICE: 03/23/2019 REASON FOR FOLLOWUP: Right breast abscess. INTERVAL HISTORY: The patient was taken to the OR this morning. The patient is status post I&D and debridement of the right breast abscess. Patient was seen prior to the procedure. Patient denies any fever or any chills. Pain to the right breast area is currently controlled. No nausea, no vomiting, no abdominal pain or any diarrhea. PHYSICAL EXAMINATION: Blood pressure 129/74 with a pulse of 85, temperature 98. She is 98% on room air. General description is a middle-aged female lying in bed in no distress. RESPIRATORY SYSTEM: Unlabored breathing. Clear to auscultation anteriorly. HEART: S1, S2. Regular rate and rhythm. ABDOMEN: Soft. No tenderness. EXTREMITIES: No edema of the feet. LABS: Hemoglobin is 12.1, white count 6.8. BUN of 12, creatinine 0.71. CRP is 22.4. DIAGNOSTIC IMPRESSION AND PLAN: Patient with right breast abscess, status post drainage. Will wait for the culture to finalize to determine her discharge antibiotics. Continue with vancomycin and Unasyn at this point and continue supportive care. MMODL / IJN: [id number] /
[2019-03-24] MEDS: AMPICILLIN-SULBACTAM 3 GM in SODIUM CHLORIDE 0.9% 100 ML IVPB SCH ×3 (00:50→17:15)
[2019-03-24] MEDS: HEPARIN SODIUM,PORCINE 5,000 UNIT/ML 1 ML VIAL SQ SCH ×4 (00:53→23:35)
[2019-03-24] MEDS: MORPHINE SULFATE 4 MG/ML SYRINGE IV PRN ×2 (04:10→23:23)
[2019-03-24] MEDS: VANCOMYCIN 2,000 MG in SODIUM CHLORIDE 0.9% 500 ML 500 ML IVPB SCH ×2 (05:20→19:13)
[2019-03-24] MEDS: LEVOTHYROXINE 50 MCG TAB PO SCH (05:20)
[2019-03-24] MEDS: GABAPENTIN 400 MG CAP PO SCH ×4 (08:43→22:51)
[2019-03-24] MEDS: LISINOPRIL 20 MG TAB PO SCH (08:43)
[2019-03-24 09:47] LABS: Anisocytosis Slight; HCT 37.1 % (34.0-46.0); HGB 11.8 gm/dL (11.4-16.0); Hypochromasia Moderate; MCH 25.3 pg (25.0-35.0); MCHC 31.9 g/dL (31.0-37.0); MCV 79.4 fL (80.0-100.0); Mean Platelet Volume 6.9; Microcytosis Slight; Platelet Count 235 k/uL (150-450); RBC 4.67 m/uL (3.80-5.40); WBC 6.4 k/uL (3.8-10.6)
[2019-03-24] MEDS: HYDROcodone/APAP 5-325MG 1 EACH TAB PO PRN ×2 (10:01→13:46)
[2019-03-24 10:13] LABS: ALT 25 U/L (4-34); AST 58 U/L (14-36); African American GFR (CKD) >90 (>60 ml/min/1.73 sqM); Albumin 3.6 g/dL (3.5-5.0); Alkaline Phosphatase 140 U/L (38-126); Anion Gap 10 mmol/L; Blood Urea Nitrogen 14 mg/dL (7-17); Calcium 9.5 mg/dL (8.4-10.2); Carbon Dioxide 27 mmol/L (22-30); Chloride 102 mmol/L (98-107); Glucose 173 mg/dL (74-99); Non-African American GFR(CKD) 88 (>60 ml/min/1.73 sqM); Potassium 3.9 mmol/L (3.5-5.1); Sodium 139 mmol/L (137-145); Total Bilirubin 1.2 mg/dL (0.2-1.3); Total Protein 6.6 g/dL (6.3-8.2)
[2019-03-24] MEDS: LETROZOLE 2.5 MG TAB PO SCH (10:43)
[2019-03-24] MEDS: TRIAMTERENE-HCTZ 37.5-25MG 1 EACH TAB PO SCH (10:43)
--- NOTE | 2019-03-24 11:21 | P.PN ---
<Roselia Cazares [place] - Last Filed: 03/24/19 11:18> Subjective Progress Note Date: 03/24/19 CHIEF COMPLAINT: Right breast abscess HISTORY OF PRESENT ILLNESS: Patient is status post incision and drainage, biopsy, and debridement of right breast abscess. Postop day #1. Patient exami aquiles at the bedside. Patient reports her pain is tolerable. Dressing to right breast intact with serosanguineous drainage on dressing. Vital signs are stable. Patient is afebrile. Wound cultures in progress. W BC 6.4. Hemoglobin 11.8. PHYSICAL EXAM: VITAL SIGNS: Reviewed. GENERAL: Well-developed in no acute distress. HEENT: No sclera icterus. Extraocular movements grossly intact. Moist buccal mucosa. Head is atraumatic, normocephalic. ABDOMEN: Soft. Nondistended. Nontender. NEUROLOGIC: Alert and oriented. Cranial nerves II through XII grossly intact. CHEST: Dressing to right chest with serosanguineous drainage noted. ASSESSMENT: 1. Right breast abscess PLAN: -Continue antibiotics -Await wound cultures -Dr. Suarez will re-assess patient this afternoon and will perform dressing change at that time. Nurse practitioner note has been reviewed by physician. Signing provider agrees with the documented findings, assessment, and plan of care. Objective - Vital Signs Vital signs: Vital Signs Temp 97.8 F 03/24/19 05:00 Pulse 70 03/24/19 05:00 Resp 16 03/24/19 05:00 BP 99/66 03/24/19 05:00 Pulse Ox 95 03/24/19 05:00 Intake & Output 03/23/19 03/24/19 03/24/19 18:59 06:59 18:59 Intake Total 300 1350 Output Total 20 Balance 280 1350 Weight 124.738 kg Intake: IV 300 1350 Ampicillin-Sulbactam 3 gm 100 In Sodium Chloride 0.9% 100 ml @ 200 mls/hr IVPB Q8HR [facility] Rx#:[id number] Sodium Chloride 0.9% 1, 750 000 ml @ 75 mls/hr IV . [id number] [facility] Rx#:[id number] Vancomycin 2,000 mg In 500 Sodium Chloride 0.9% 500 ml 500 ml @ 167 mls/hr IVPB Q12H [facility] Rx#: [id number] Output: Estimated Blood Loss 20 Other: Voiding Method Toilet # Voids 4 2 - Labs CBC & Chem 7: 03/24/19 08:28 03/24/19 08:28 Labs: Abnormal Lab Results - Last 24 Hours (Table) 03/24/19 03/24/19 Range/Units 08:28 08:28 MCV 79.4 L (80.0-100.0) fL RDW 18.0 H (11.5-15.5) % Glucose 173 H (74-99) mg/dL AST 58 H (14-36) U/L Alkaline Phosphatase 140 H (38-126) U/L Microbiology - Last 24 Hours (Table) 03/23/19 11:42 Gram Stain - Preliminary Breast - Right Wound Culture - Preliminary 03/23/19 11:42 Anaerobic Culture - Preliminary Breast - Right 03/20/19 15:55 Blood Culture - Preliminary Blood No Growth after 72 hours <Devante Suarez - Last Filed: 03/24/19 19:48> Subjective As above. Patient's pain is improved. Cultures pending. Begin local wound care. Objective - Vital Signs Vital signs: Vital Signs Temp 97.9 F 03/24/19 11:54 Pulse 98 03/24/19 11:54 Resp 17 03/24/19 11:54 BP 122/75 03/24/19 11:54 Pulse Ox 95 03/24/19 11:54 Intake & Output 03/24/19 03/24/19 03/25/19 06:59 18:59 06:59 Intake Total 1350 975 Balance 1350 975 Intake: IV 1350 375 Ampicillin-Sulbactam 3 gm 100 In Sodium Chloride 0.9% 100 ml @ 200 mls/hr IVPB Q8HR [facility] Rx#:[id number] Sodium Chloride 0.9% 1, 750 000 ml @ 75 mls/hr IV . [id number] [facility] Rx#:[id number] Vancomycin 2,000 mg In 500 375 Sodium Chloride 0.9% 500 ml 500 ml @ 167 mls/hr IVPB Q12H [facility] Rx#: [id number] Other 600 Other: Voiding Method Toilet # Voids 2 3 - Labs CBC & Chem 7: 03/24/19 08:28 03/24/19 08:28 Labs: Abnormal Lab Results - Last 24 Hours (Table) 03/24/19 03/24/19 Range/Units 08:28 08:28 MCV 79.4 L (80.0-100.0) fL RDW 18.0 H (11.5-15.5) % Glucose 173 H (74-99) mg/dL AST 58 H (14-36) U/L Alkaline Phosphatase 140 H (38-126) U/L Microbiology - Last 24 Hours (Table) 03/23/19 11:42 Gram Stain - Preliminary Breast - Right Wound Culture - Preliminary 03/20/19 15:55 Blood Culture - Preliminary Blood No Growth after 96 hours 03/23/19 11:42 Anaerobic Culture - Preliminary Breast - Right Assessment and Plan (1) Cellulitis of breast Current Visit: Yes Status: Acute Priority: High Code(s): N61.0 - MASTITIS WITHOUT ABSCESS SNOMED Code(s): 03825849
[2019-03-24] MEDS: SODIUM CHLORIDE 0.9% 1,000 ML IV SCH (13:45)
--- NOTE | 2019-03-24 16:09 | P.PN ---
Subjective Progress Note Date: 03/24/19 Principal diagnosis: Breast abscess, right Feeling better, s/p I and D of the abscess 03/23. Doing well. No n/v. No pain. Objective - Vital Signs Vital signs: Vital Signs Temp 97.9 F 03/24/19 11:54 Pulse 98 03/24/19 11:54 Resp 17 03/24/19 11:54 BP 122/75 03/24/19 11:54 Pulse Ox 95 03/24/19 11:54 Intake & Output 03/23/19 03/24/19 03/24/19 18:59 06:59 18:59 Intake Total 300 1350 975 Output Total 20 Balance 280 1350 975 Weight 124.738 kg Intake: IV 300 1350 375 Ampicillin-Sulbactam 3 gm 100 In Sodium Chloride 0.9% 100 ml @ 200 mls/hr IVPB Q8HR [facility] Rx#:[id number] Sodium Chloride 0.9% 1, 750 000 ml @ 75 mls/hr IV . [id number] [facility] Rx#:[id number] Vancomycin 2,000 mg In 500 375 Sodium Chloride 0.9% 500 ml 500 ml @ 167 mls/hr IVPB Q12H [facility] Rx#: [id number] Other 600 Output: Estimated Blood Loss 20 Other: Voiding Method Toilet # Voids 4 2 3 - Exam General: no distress, appears at stated age, Obese Derm: warm, dry Head: atraumatic, normocephalic, symmetric Eyes: EOMI, no lid lag, anicteric sclera Mouth: no lip lesion, mucus membranes moist Cardiovascular: S1S2 reg, no murmur, positive posterior tibial pulse bilateral, Lungs: CTA bilateral, no rhonchi, no rales , no accessory muscle use Abdominal: soft, nontender to palpation, no guarding, no appreciable organomegaly Ext: no gross muscle atrophy, no edema, no contractures Neuro: CN II-XI grossly intact, no focal neuro deficits Psych: Alert, oriented, appropriate affect - Labs CBC & Chem 7: 03/24/19 08:28 03/24/19 08:28 Labs: Abnormal Lab Results - Last 24 Hours (Table) 03/24/19 03/24/19 Range/Units 08:28 08:28 MCV 79.4 L (80.0-100.0) fL RDW 18.0 H (11.5-15.5) % Glucose 173 H (74-99) mg/dL AST 58 H (14-36) U/L Alkaline Phosphatase 140 H (38-126) U/L Microbiology - Last 24 Hours (Table) 03/23/19 11:42 Gram Stain - Preliminary Breast - Right Wound Culture - Preliminary 03/23/19 11:42 Anaerobic Culture - Preliminary Breast - Right 03/20/19 15:55 Blood Culture - Preliminary Blood No Growth after 72 hours Assessment and Plan Plan: Right breast cellulitis with abscess, failed outpatient antibiotics -Continue with Unasyn and vancomycin -s/p I and D with biopsy. 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
[2019-03-24] MEDS: NORTRIPTYLINE 25 MG CAP PO SCH (23:33)
[2019-03-24] MEDS: TEMAZEPAM 15 MG CAP PO PRN (23:33)
[2019-03-25] MEDS: AMPICILLIN-SULBACTAM 3 GM in SODIUM CHLORIDE 0.9% 100 ML IVPB SCH ×4 (00:05→23:40)
[2019-03-25] MEDS: HYDROcodone/APAP 5-325MG 1 EACH TAB PO PRN ×3 (00:44→20:22)
[2019-03-25] MEDS ORDERED: VANCOMYCIN TROUGH DUE 1 EACH MISC MISCELLANE ONE (05:00)
[2019-03-25 06:01] LABS: African American GFR (CKD) >90 (>60 ml/min/1.73 sqM); Non-African American GFR(CKD) >90 (>60 ml/min/1.73 sqM)
[2019-03-25] MEDS: LEVOTHYROXINE 50 MCG TAB PO SCH (06:11)
[2019-03-25] MEDS: VANCOMYCIN 2,000 MG in SODIUM CHLORIDE 0.9% 500 ML 500 ML IVPB SCH ×2 (06:11→18:07)
--- NOTE | 2019-03-25 07:53 | PN ---
PROGRESS NOTE DATE OF SERVICE: 03/24/2019. REASON FOR FOLLOW UP: Right breast abscess. INTERVAL HISTORY: The patient is currently afebrile. The patient has been breathing comfortably. Pain to the right breast is currently controlled. No nausea, vomiting, abdominal pain, no diarrhea. PHYSICAL EXAMINATION: Blood pressure is 119/83 with a pulse of 94. Temperature 97.9. She is 98% on room air. General description is a middle-aged female lying in bed in no distress. Respiratory system: Unlabored breathing. Clear to auscultation anteriorly. Heart S1, S2. Regular rate and rhythm. ABDOMEN: Soft. No tenderness. Right breast is currently dressed up postop. LABS: Wound culture is currently pending. DIAGNOSTIC IMPRESSION AND PLAN: Patient with right breast abscess status post surgical drainage. Cultures are currently pending. Patient to cover with Unasyn and Vancomycin to continue while monitoring the clinical course and culture closely. Continue supportive care. MMODL / IJN: [id number] /
[2019-03-25] MEDS: LETROZOLE 2.5 MG TAB PO SCH (09:45)
[2019-03-25] MEDS: TRIAMTERENE-HCTZ 37.5-25MG 1 EACH TAB PO SCH (09:47)
[2019-03-25] MEDS: HEPARIN SODIUM,PORCINE 5,000 UNIT/ML 1 ML VIAL SQ SCH (09:47)
[2019-03-25] MEDS: LISINOPRIL 20 MG TAB PO SCH (09:47)
[2019-03-25] MEDS: GABAPENTIN 400 MG CAP PO SCH ×4 (09:47→21:07)
[2019-03-25] MEDS: ACETAMINOPHEN TAB 325 MG TAB PO PRN (09:49)
--- NOTE | 2019-03-25 11:46 | P.PN ---
Progress Note - Text Progress Note Date: 03/25/19 the patient's postoperative day 2 from incision and drainage of right breast abscess. She still has some complaints of pain in the surgical area. On exam the patient states that there is less swelling of her breast. Status post incision and drainage of right breast abscess. Patient he received IV in the box. She'll be discharged home once cleared by infectious disease
[2019-03-25 13:08] VITALS: RESP 18
--- NOTE | 2019-03-25 13:15 | P.PN ---
Subjective Progress Note Date: 03/25/19 Principal diagnosis: Breast abscess, right No new complaints, no overnight issues. Objective - Vital Signs Vital signs: Vital Signs Temp 97.8 F 03/25/19 13:00 Pulse 65 03/25/19 13:00 Resp 18 03/25/19 13:00 BP 110/70 03/25/19 13:00 Pulse Ox 97 03/25/19 13:00 Intake & Output 03/24/19 03/25/19 03/25/19 18:59 06:59 18:59 Intake Total 975 1180 Balance 975 1180 Intake: IV 375 Vancomycin 2,000 mg In 375 Sodium Chloride 0.9% 500 ml 500 ml @ 167 mls/hr IVPB Q12H [facility] Rx#: [id number] Oral 1180 Other 600 Other: Voiding Method Toilet Toilet # Voids 3 2 - Exam General: no distress, appears at stated age, Obese Derm: warm, dry Head: atraumatic, normocephalic, symmetric Eyes: EOMI, no lid lag, anicteric sclera Mouth: no lip lesion, mucus membranes moist Cardiovascular: S1S2 reg, no murmur, positive posterior tibial pulse bilateral, Lungs: CTA bilateral, no rhonchi, no rales , no accessory muscle use Abdominal: soft, nontender to palpation, no guarding, no appreciable organomegaly Ext: no gross muscle atrophy, no edema, no contractures Neuro: CN II-XI grossly intact, no focal neuro deficits Psych: Alert, oriented, appropriate affect - Labs CBC & Chem 7: 03/24/19 08:28 03/25/19 05:40 Labs: Microbiology - Last 24 Hours (Table) 03/23/19 11:42 Gram Stain - Preliminary Breast - Right Wound Culture - Preliminary 03/20/19 15:55 Blood Culture - Preliminary Blood No Growth after 96 hours Assessment and Plan Plan: Right breast cellulitis with abscess, failed outpatient antibiotics -Continue with Unasyn and vancomycin -s/p I and D with biopsy. -Surgery following -ID recs appreciated, awaiting biopsy and cultures results to determine best abx coverage for discharge. 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
[2019-03-25] MEDS: SODIUM CHLORIDE 0.9% 1,000 ML IV SCH ×2 (13:56→20:23)
[2019-03-25] MEDS: NORTRIPTYLINE 25 MG CAP PO SCH (21:07)
[2019-03-25] MEDS: TEMAZEPAM 15 MG CAP PO PRN (22:27)
--- NOTE | 2019-03-25 22:57 | PN ---
PROGRESS NOTE DATE OF SERVICE: 03/25/2019. REASON FOR FOLLOWUP: Right breast abscess. INTERVAL HISTORY: The patient is currently afebrile. The patient has been breathing comfortably. The patient denies having any chest pain, shortness of breath or cough. No nausea, vomiting. No abdominal pain or pain to the right breast area. PHYSICAL EXAMINATION: Blood pressure is 110/70 with a pulse of 55, temperature of 97.8. She is 97% on room air. General description is a middle-aged female lying in bed in no distress. Respiratory system: Unlabored breathing. Clear to auscultation anteriorly. Heart S1, S2. Regular rate and rhythm. Abdomen soft, no tenderness. Right breast wound base looks clean with no slough tissue or surrounding swelling, redness or any drainage. LABS: Creatinine 0.75. Cultures currently pending. DIAGNOSTIC IMPRESSION AND PLAN: Patient with concern for right breast abscess status post I and D with drainage of subdural material. However, culture so far negative. Patient is currently covered on Unasyn and vancomycin with discharge antibiotic depending upon the culture report. Monitor clinical course closely. MMODL / IJN: [id number] /
[2019-03-26] MEDS: VANCOMYCIN 2,000 MG in SODIUM CHLORIDE 0.9% 500 ML 500 ML IVPB SCH (05:49)
[2019-03-26] MEDS: LEVOTHYROXINE 50 MCG TAB PO SCH (05:49)
[2019-03-26] MEDS: SODIUM CHLORIDE 0.9% 1,000 ML IV SCH (05:49)
[2019-03-26] MEDS: TRIAMTERENE-HCTZ 37.5-25MG 1 EACH TAB PO SCH (08:27)
[2019-03-26] MEDS: LETROZOLE 2.5 MG TAB PO SCH (08:27)
[2019-03-26] MEDS: GABAPENTIN 400 MG CAP PO SCH ×2 (08:27→13:09)
[2019-03-26] MEDS: LISINOPRIL 20 MG TAB PO SCH (08:27)
[2019-03-26] MEDS: AMPICILLIN-SULBACTAM 3 GM in SODIUM CHLORIDE 0.9% 100 ML IVPB SCH ×2 (09:05→17:32)
[2019-03-26 12:06] VITALS: BP 122/73; PULSE 101; TEMP 97.8
[2019-03-26] MEDS: HYDROcodone/APAP 5-325MG 1 EACH TAB PO PRN ×2 (12:12→17:04)
--- NOTE | 2019-03-26 14:49 | P.PN ---
Progress Note - Text Progress Note Date: 03/26/19 the patient is resting comfortably. She denies any significant chest wall pain. Her cellulitis is improving. Status post incision drainage of right breast abscess. Patient is continue receive IV antibiotic. It with a discharge home tomorrow once her cultures have been finalized
--- NOTE | 2019-03-26 16:50 | PN ---
PROGRESS NOTE DATE OF SERVICE: 03/26/2019. REASON FOR FOLLOWUP: Right breast seroma and question of abscess. INTERVAL HISTORY: The patient is currently afebrile. The patient is breathing comfortably. The patient denies having any chest pain or any cough. No nausea, vomiting, abdominal pain. No pain to the right breast area. PHYSICAL EXAMINATION: Blood pressure 122/73 with a pulse of 101, temperature 97.8. She is 94% on room air. General description is a middle-aged female in the room in no distress. Respiratory system: Unlabored breathing. Clear to auscultation anteriorly. Heart S1, S2. Regular rate and rhythm. Abdomen soft, no tenderness. LABS: White count normal 6.4, creatinine 0.75. Vancomycin trough is therapeutic. The right breast cultures remain to be negative. DIAGNOSTIC IMPRESSION AND PLAN: Patient with right breast seroma. Initial concern for possible infected seroma or an abscess. Blood culture has been negative. Could be as the patient was on antibiotic in the outpatient setting and possibly Keflex sensitive pathogen. She will continue with oral Keflex for about 3-10 days. Local wound care with Aquacel Silver packing of the wound. [facility] next week for further local wound care and continue supportive care. MMODL / IJN: [id number] /
--- NOTE | 2019-03-26 17:46 | P.DS ---
Providers Date of admission: 03/21/19 15:49 Expected date of discharge: 03/26/19 Attending physician: Mary Chavira MD Consults: 03/20/19 17:02 Consult Physician Urgent Consulting Provider: Yoav Xie Consult Reason/Comments: oncological care Do you want consulting provider notified?: Already Contacted 03/21/19 13:45 Consult Physician Urgent Consulting Provider: Lucas Kan Consult Reason/Comments: breast cellulitis and possible abscess Do you want consulting provider notified?: Yes 03/21/19 13:48 Consult Physician Urgent Consulting Provider: Devante Suarez Consult Reason/Comments: breast cellulitis,abscess Do you want consulting provider notified?: Yes Primary care physician: [facility] Course: 48-year-old female with PMH of breast cancer diagnosed December [address] Long, has undergone chemotherapy, radiation and surgery, hx of hypothyroidism and hypertension presented to the ED for right breast pain swelling and erythema. Symptoms were ongoing over the past 3 weeks. She was given [address] weeks [address] keflex by Dr. Carmichael. During her follow-up with him he noticed her cellulitis had gotten worse which prompted the patient to come to the ED. Otherwise no other symptoms. She denied any headaches, lower extremity edema, nausea or vomiting, fever or chills, cough, chest pain, shortness of breath, changes in urination or bowel habits. No changes in appetite or weight. No dizziness, numbness/weakness/tingling of the extremities. In the ED, Vital signs were stable except for pulse of 113. Labs were generally ok. Patient was admitted for right breast cellulitis. She had breast ultrasound that showed a 4 cm mass with internal echoes at the 10 o'clock position on the right breast with posterior enhancement suggesting complex fluid with irregular stiles which could relate to an abscess, complex hematoma, or necrotic tumor. She was started on Unasyn. Infectious disease was consulted, vancomycin was added to her regimen. Oncology was consulted and does not feel this is disease/breast cancer recurrence/progression but is more likely related to infection in the old cancer site. Surgery consulted, I and D of breast abscess was performed, cultures sent which eventually did not grow any organism. Today patient is feeling well. She was cleared by general surgery and infectious disease for discharge. She will be discharged home in a stable condition. home care was arranged for dressing changes. time for discharge 35 minutes. Plan - Discharge Summary New Discharge Prescriptions: New Cephalexin [Keflex] 500 mg PO Q6HR #28 cap HYDROcodone/APAP 5-325MG [Kittery 5-325] 1 each PO Q4HR PRN #18 tab PRN Reason: Moderate Pain Continue Triamterene-Hctz 37.5-25Mg [Maxzide 37.5-25] 1 tab PO QAM Multivitamins, Thera [Multivitamin (formulary)] 1 tab PO DAILY Cholecalciferol [Vitamin D3 (25 Mcg = 1000 Iu)] 5,000 unit PO DAILY Nortriptyline [Pamelor] 50 mg PO DAILY Leuprolide/Norethindrone Acet [Lupaneta Pk 11.25-5 mg 3Mo Kit] 1 dose IM Q90D Gabapentin 800 mg PO QID Ramipril [Altace] 10 mg PO DAILY Levothyroxine Sodium [Synthroid] 50 mcg PO DAILY Letrozole 2.5 mg PO DAILY Discontinued Cephalexin [Keflex] 500 mg PO QID Discharge Medication List Triamterene-Hctz 37.5-25Mg [Maxzide 37.5-25] 1 tab PO QAM 12/29/17 [History] Cholecalciferol [Vitamin D3 (25 Mcg = 1000 Iu)] 5,000 unit PO DAILY 03/20/19 [History] Gabapentin 800 mg PO QID 03/20/19 [History] Letrozole 2.5 mg PO DAILY 03/20/19 [History] Leuprolide/Norethindrone Acet [Lupaneta Pk 11.25-5 mg 3Mo Kit] 1 dose IM Q90D 03/20/19 [History] Levothyroxine Sodium [Synthroid] 50 mcg PO DAILY 03/20/19 [History] Multivitamins, Thera [Multivitamin (formulary)] 1 tab PO DAILY 03/20/19 [History] Nortriptyline [Pamelor] 50 mg PO DAILY 03/20/19 [History] Ramipril [Altace] 10 mg PO DAILY 03/20/19 [History] Cephalexin [Keflex] 500 mg PO Q6HR #28 cap 03/26/19 [Rx] HYDROcodone/APAP 5-325MG [Kittery 5-325] 1 each PO Q4HR PRN #18 tab 03/26/19 [Rx] Follow up Appointment(s)/Referral(s): [facility], [NON-STAFF] - 1-2 Days (wound home care will call you to set up a time, any questions please call agency. ) [facility], [NON-STAFF] - 1-2 Days () Steph Wu MD [Primary Care Provider] - 1-2 days (patient to call office on wednesday for follow up appt) Dafne Long MD [STAFF PHYSICIAN] - 04/06/19 2:30 pm (this is for chemo as long as pt has completed antibiotic course) Patient Instructions/Handouts: *Surgery [facility] - ([facility]) Breast Biopsy Instructions, *Surgery [facility] - (Anesthesia) Discharge Instructions Outpatient Surgery, Cephalexin (By mouth), Hydrocodone/Acetaminophen (By mouth) Activity/Diet/Wound Care/Special Instructions: Dry Aquacel silver packing of the right breast wound to change every 24-48 hour depending upon drainage Follow with Dr. Kan in the wound care center next week call [phone] to make an appointment
== END 2019-03-26 18:05 | disposition home health service (06) | DRG 571 ==
LOC: EC 14:58 → 5NMEDONC 17:01 → OBSVTOIN 03-21 15:49
PROVIDERS: ADMIT Family Medicine; ATTEND Family Medicine
PROC: 0JB60ZZ Excision of Chest Subcutaneous Tissue and Fascia, Open Approach (ICD-10-PCS; principal; 2019-03-23 12:25)
DX: N61.1 Abscess of the breast and nipple (principal); C77.9 Secondary and unspecified malignant neoplasm of lymph node, unspecified; C50.911 Malignant neoplasm of unspecified site of right female breast; E03.9 Hypothyroidism, unspecified; E55.9 Vitamin D deficiency, unspecified; E66.01 Morbid (severe) obesity due to excess calories; I10 Essential (primary) hypertension; T45.1X5A Adverse effect of antineoplastic and immunosuppressive drugs, initial encounter; Z15.01 Genetic susceptibility to malignant neoplasm of breast; Z68.39 Body mass index [BMI] 39.0-39.9, adult; Z79.890 Hormone replacement therapy; Z79.899 Other long term (current) drug therapy; Z82.49 Family history of ischemic heart disease and other diseases of the circulatory system; Z83.3 Family history of diabetes mellitus; Z87.891 Personal history of nicotine dependence; Z92.3 Personal history of irradiation; Z98.84 Bariatric surgery status
CPT/HCPCS: 36415; 80048; 80053; 80061; 80074; 80202; 82565; 83605; 84703; 85025; 85027; 85610; 85730; 86140; 87040; 87070; 87075; 87205; 88304; 96361; 96365; 99284

== ENCOUNTER → 2019-11-21 | Outpatient (CLI) | payer BC ==
--- NOTE | 2019-11-21 16:11 | XR ---
EXAMINATION TYPE: XR knee complete RT DATE OF EXAM: 11/21/2019 CLINICAL HISTORY: Right knee pain, particularly with extension. No known injury. TECHNIQUE: AP, oblique, and lateral views of the right knee are obtained. COMPARISON: None. FINDINGS: There is no acute fracture/dislocation evident in right knee. There is mild spurring of t he medial compartment and patellofemoral compartment. Spurring of the medial tibial spine. There is q uadriceps tendon and patellar tendon patellar enthesophytes. Moderate suprapatellar joint effusion. N ormal osseous mineralization. IMPRESSION: 1. There is no acute fracture or dislocation in the right knee. 2. Bicompartmental osteoarthritis and spurring of the medial tibial spine. 3. Patellar enthesophytes. 4. Moderate suprapatellar joint effusion.
== END | disposition home or self-care (01) ==
LOC: LABPAT 10:47
PROVIDERS: ATTEND Family Medicine
DX: M17.11 Unilateral primary osteoarthritis, right knee (principal); M25.561 Pain in right knee
CPT/HCPCS: 36415; 85379

== ENCOUNTER 2019-12-05 18:51 | Emergency (ER) | payer BC ==
[2019-12-05] MEDS ORDERED: KETOROLAC 15 MG/ML 1 ML VIAL IM STA (19:43)
--- NOTE | 2019-12-05 19:54 | ED ---
General Adult HPI - General Chief complaint: Extremity Injury, Lower Stated complaint: knee pain Time Seen by Provider: 12/05/19 19:28 Source: patient, RN notes reviewed Mode of arrival: ambulatory Limitations: no limitations - History of Present Illness Initial comments: 49-year-old female with a past medical history of breast cancer, hypertension presents to the emergency room for a chief complaint of right knee pain. Patient states the anterior lateral aspect of the right knee is a causing her discomfort for about 3 weeks. States she saw her doctor after one week and had a neck surgery performed and a referral to orthopedics. Patient states she has an appointment with orthopedics on December 14 but pain is continuing to get worse. Patient is taking Neurontin and Tylenol for pain at home. Patient denies fevers or chills. Patient does state the pain radiates to the back of the calf. States that it is painful to bear weight.Patient has no other complaints at this time including shortness of breath, chest pain, abdominal pain, nausea or vomiting, headache, or visual changes. - Related Data Home Medications Medication Instructions Recorded Confirmed Triamterene-Hctz 37.5-25Mg 1 tab PO QAM 12/29/17 03/20/19 [Maxzide 37.5-25] Cholecalciferol [Vitamin D3 (25 5,000 unit PO DAILY 03/20/19 03/20/19 Mcg = 1000 Iu)] Gabapentin 800 mg PO QID 03/20/19 03/20/19 Letrozole 2.5 mg PO DAILY 03/20/19 03/20/19 Leuprolide/Norethindrone Acet 1 dose IM Q90D 03/20/19 03/20/19 [Lupaneta Pk 11.25-5 mg 3Mo Kit] Levothyroxine Sodium [Synthroid] 50 mcg PO DAILY 03/20/19 03/20/19 Multivitamins, Thera [Multivitamin 1 tab PO DAILY 03/20/19 03/20/19 (formulary)] Nortriptyline [Pamelor] 50 mg PO DAILY 03/20/19 03/20/19 Ramipril [Altace] 10 mg PO DAILY 03/20/19 03/20/19 Previous Rx's Medication Instructions Recorded Cephalexin [Keflex] 500 mg PO Q6HR #28 cap 03/26/19 HYDROcodone/APAP 5-325MG [Blount 1 each PO Q4HR PRN #18 tab 03/26/19 5-325] Allergies Allergy/AdvReac Type Severity Reaction Status Date / Time No Known Allergies Allergy Verified 12/05/19 19:24 Review of Systems ROS Statement: Those systems with pertinent positive or pertinent negative responses have been documented in the HPI. ROS Other: All systems not noted in ROS Statement are negative. Past Medical History Past Medical History: Cancer, Hypertension, Thyroid Disorder Additional Past Medical History / Comment(s): breast cancer(Status post neoadjuvant chemotherapy, surgery, adjuvant chemotherapy, radiation and continues on AI) History of Any Multi-Drug Resistant Organisms: None Reported Past Surgical History: Breast Surgery, Section, Cholecystectomy, Hernia Repair Additional Past Surgical History / Comment(s): breast bx. x2 Past Anesthesia/Blood Transfusion Reactions: No Reported Reaction Past Psychological History: No Psychological Hx Reported Past Alcohol Use History: None Reported Past Drug Use History: None Reported - Past Family History Father Family Medical History: Cancer, Diabetes Mellitus, Hypertension, Myocardial Infarction ([place]) Additional Family Medical History / Comment(s): colon Mother Family Medical History: Diabetes Mellitus Sister(s) Family Medical History: Diabetes Mellitus General Exam Limitations: no limitations General appearance: alert, in no apparent distress Head exam: Present: atraumatic, normocephalic, normal inspection Eye exam: Present: normal appearance, PERRL, EOMI. Absent: scleral icterus, conjunctival injection, periorbital swelling ENT exam: Present: normal exam, mucous membranes moist Neck exam: Present: normal inspection. Absent: tenderness, meningismus, lymphadenopathy Respiratory exam: Present: normal lung sounds bilaterally. Absent: respiratory distress, wheezes, rales, rhonchi, stridor Cardiovascular Exam: Present: regular rate, normal rhythm, normal heart sounds. Absent: systolic murmur, diastolic murmur, rubs, gallop, clicks GI/Abdominal exam: Present: soft, normal bowel sounds. Absent: distended, tenderness, guarding, rebound, rigid Extremities exam: Present: tenderness (mild tenderness to the anterior lateral aspect of the right knee. No posterior knee tenderness.), normal capillary refill (capillary refill less than 2 seconds, DP pulse 2+ in the right lower extremity.). Absent: full ROM (90 flexion of the right knee with full extension.), pedal edema, joint swelling (no obvious edema of the knee.), calf tenderness (tenderness or edema noted) Course Vital Signs 12/05/19 12/05/19 19:20 21:14 Temperature 98.5 F 97.8 F Pulse Rate 92 74 Respiratory 16 18 Rate Blood Pressure 119/66 135/88 O2 Sat by Pulse 97 97 Oximetry Medical Decision Making - Medical Decision Making Patient presents with 3 weeks of knee pain. Pain is worsening. Mostly in the anterior lateral aspect of the knee. Denies pain does radiate to the calf. No edema noted of the right calf compared to the left calf. No erythema. No calf tenderness. Negative Homans sign. No fevers or evidence of septic joint. Patient has 90 flexion of the right knee. X-ray shows a small knee joint effusion like appears new compared to old exam. Mild spurring. No fracture. Ultrasound shows a limited exam without definite sign of DVT. patient was wrapped with an Austin wrap. Knee immobilizer was not applied given this would further immobilized patient's knee and with her history of cancer I do not want to increase risk of DVT. Patient will take Motrin and Tylenol. If pain is severe she will take Tylenol 3. She was given a perception for crutches. She will follow up with orthopedics. She has an appointment on the but will call tomorrow for possibility of earlier appointment. she was referred to Dr. Du by PCP. She will return for any worsening symptoms. Disposition Clinical Impression: Knee pain, right Disposition: HOME SELF-CARE Condition: Good Instructions (If sedation given, give patient instructions): Knee Pain (ED) Additional Instructions: please alternate Motrin and Tylenol every 3 hours for pain. Take Tylenol 3 if pain is severe but do not drive while taking this. Rest ice and elevate the right knee. Keep the right knee wrapped. Use crutches as needed. Follow-up with your primary care doctor and orthopedics as soon as possible. If you've any worsening symptoms such as redness swelling or fevers return to the emergency room. Is patient prescribed a controlled substance at d/c from ED?: No Referrals: Steph Wu MD [Primary Care Provider] - 1-2 days Time of Disposition: 21:21
--- NOTE | 2019-12-05 20:13 | XR ---
EXAMINATION TYPE: XR knee complete RT DATE OF EXAM: 12/05/2019 COMPARISON: 11/21/2019 HISTORY: Knee pain TECHNIQUE: 3 views FINDINGS: I see no fracture nor dislocation. Joint spaces are fairly normal. There is minor spurring on the anterior patella. There is a small knee joint effusion. IMPRESSION: There is a small knee joint effusion that appears new compared to old exam. Mild spurrin g. No fracture.
--- NOTE | 2019-12-05 20:38 | US ---
EXAMINATION TYPE: US venous doppler duplex LE RT DATE OF EXAM: 12/05/2019 8:27 PM COMPARISON: NONE CLINICAL HISTORY: pain. Pain in right leg x a few weeks. No hx of DVT. Patient does not take blood th inners. SIDE PERFORMED: Right TECHNIQUE: The lower extremity deep venous system is examined utilizing real time linear array sonog mesfin with graded compression, doppler sonography and color-flow sonography. VESSELS IMAGED: Common Femoral Vein Deep Femoral Vein Greater Saphenous Vein * Femoral Vein Popliteal Vein Small Saphenous Vein * Proximal Calf Veins (* superficial vessels) Right Leg: EIV not visualized due to patient body habitus. Slightly limited visibility of popliteal vein. Popliteal vein does appear to compress; slight color defect possibly due to edema. No evidence of DVT in veins imaged at this time, although exam is limited. IMPRESSION: Limited exam shows no definite sign of deep vein thrombosis. Exam limited by patient's size.
[2019-12-05 21:15] VITALS: BP 135/88; PULSE 74; RESP 18; TEMP 97.8
[2019-12-05] MEDS ORDERED: MORPHINE SULFATE 4 MG/ML SYRINGE IM STA (21:18)
[2019-12-05] MEDS ORDERED: ACET/COD 300 MG/30 MG STARTER PACK 6 TAB BTL PO STA (21:21)
== END 2019-12-05 21:58 | disposition home or self-care (01) ==
LOC: SUPCPDRO 18:51 → EC 18:51
DX: M25.561 Pain in right knee (principal); I10 Essential (primary) hypertension; E07.9 Disorder of thyroid, unspecified; Z79.890 Hormone replacement therapy; Z79.899 Other long term (current) drug therapy; Z85.3 Personal history of malignant neoplasm of breast
CPT/HCPCS: 73562; 93971; 99284; 96372 ×2; J2270; J1885

== ENCOUNTER → 2019-12-26 | Outpatient (CLI) | payer BC ==
--- NOTE | 2019-12-26 11:47 | MR ---
EXAMINATION TYPE: MR knee RT wo con DATE OF EXAM: 12/26/2019 COMPARISON: Ra film 12/15/2019 HISTORY: Right knee pain x 1 month, no trauma TECHNIQUE: Multiplanar, multisequence imaging of the right knee is performed without IV contrast. FINDINGS: MEDIAL MENISCUS: The posterior horn of the medial meniscus shows some linear increased signal, commun ication with the articular surface is not identified with certainty although coronal image #22 is que stionable. The root anchor appears attenuated, there is abnormal increased signal present at this lev el, difficult to exclude a tear. LATERAL MENISCUS: Posterior horn shows some intrinsic increased signal, no clear communication with t he articular surface, some intrinsic signal also present within the anterior horn. CRUCIATE LIGAMENTS: The anterior and posterior cruciate ligaments are intact and unremarkable. COLLATERAL LIGAMENTS: The medial collateral ligament and lateral collateral ligament complex are inta ct and unremarkable. EXTENSOR MECHANISM: Visualized quadriceps and patellar tendons are intact. EFFUSION: Small joint effusion present. POPLITEAL CYST: Minimal semimembranosus gastrocnemius cyst, axial image 18 TRICOMPARTMENT SPACES: Some loss of joint space in the medial compartment CARTILAGE: Grade III chondromalacia present in the lateral compartment, coronal image #22, grade 2 to grade III chondromalacia medial compartment and at the posterior patella BONE MARROW SIGNAL: Maintained OTHER: There is some subcutaneous edema noted. IMPRESSION: Osteoarthritis. Difficult to exclude root anchor tear posterior horn medial meniscus. Joint effusion.
== END | disposition home or self-care (01) ==
LOC: RADMRIMAIN 10:27
PROVIDERS: ATTEND Orthopaedic Surgery
DX: M17.11 Unilateral primary osteoarthritis, right knee (principal); S83.241A Other tear of medial meniscus, current injury, right knee, initial encounter

== ENCOUNTER → 2020-01-25 | Outpatient (CLI) | payer BC ==
[2020-01-25 15:18] LABS: Basophils # (A) 0.1 k/uL (0-0.2); Basophils % (A) 1 %; Eosinophils # (A) 0.3 k/uL (0-0.7); Eosinophils % (A) 3 %; HCT 40.7 % (34.0-46.0); HGB 13.1 gm/dL (11.4-16.0); Lymphocytes # (A) 1.3 k/uL (1.0-4.8); Lymphocytes % (A) 15 %; MCH 27.9 pg (25.0-35.0); MCHC 32.1 g/dL (31.0-37.0); MCV 86.9 fL (80.0-100.0); Mean Platelet Volume 7.5; Monocytes # (A) 0.4 k/uL (0-1.0); Monocytes % (A) 5 %; Neutrophils # (A) 6.4 k/uL (1.3-7.7); Neutrophils % (A) 75 %; Platelet Count 187 k/uL (150-450); RBC 4.68 m/uL (3.80-5.40); WBC 8.5 k/uL (3.8-10.6)
[2020-01-25 15:27] LABS: Potassium 3.6 mmol/L (3.5-5.1)
== END | disposition home or self-care (01) ==
LOC: LABWHC1 14:00
PROVIDERS: ATTEND Orthopaedic Surgery
DX: M23.91 Unspecified internal derangement of right knee (principal)
CPT/HCPCS: 36415; 80051; 85025; 93005

== ENCOUNTER 2020-02-01 09:39 | Day surgery (SDC) | payer BC ==
[2020-01-30 13:28] VITALS: BMI 40.6
--- NOTE | 2020-01-31 18:20 | HP ---
HISTORY AND PHYSICAL DATE OF SURGERY: 02/01/2020 Naz Dejesus is a 49-year-old patient seen with progressive right knee pain. We discussed options. She elected to proceed with right knee arthroscopy. Consent regarding the procedure was obtained. PAST MEDICAL HISTORY: Hypertension, hypothyroidism. PAST SURGICAL HISTORY: Breast lumpectomy, section, gastric bypass surgery, cholecystectomy. DAILY MEDICATIONS: Altace, gabapentin, levothyroxine, Lupron. ALLERGIES: NONE REPORTED. SOCIAL HISTORY: She denies current tobacco use. PHYSICAL EVALUATION OF RIGHT KNEE: Range of motion is negative 2/3 to 110. Mild effusion. There is tenderness along the medial and lateral joint lines. Positive medial Maddy's. Positive lateral Maddy's. Ligaments are stable. Hip rotation without pain. Her distal neurovascular exam is intact. RADIOGRAPHS: Radiographs of the right knee revealed mild medial and moderate patellofemoral compartment osteoarthritis. An MRI of the right knee revealed medial meniscal tear as well as osteoarthritic changes. IMPRESSION: 1. Internal derangement of right knee with medial meniscal tear. 2. Right knee osteoarthritis. 3. Hypertension. 4. Hypothyroidism. PLAN: Right knee arthroscopy with partial meniscectomy, partial synovectomy and debridement. MMODL / IJN: [id number] /
[~2020-02-01 09:39] MED LIST: DEXAMETHASONE SOD PHOSPHATE 10 MG/ML 1 ML VIAL IV ONE; LACTATED RINGERS 1,000 ML IV SCH; ceFAZolin 3 GM in SODIUM CHLORIDE 0.9% 100 ML IVPB ONE
[2020-02-01] MEDS ORDERED: LACTATED RINGERS 1,000 ML IV ONE ×2 (09:59)
[2020-02-01] MEDS: ONDANSETRON 4 MG/2 ML VIAL IVP ONE ×2 (10:25→13:15)
[2020-02-01] MEDS ORDERED: PROPOFOL 10 MG/ML 20 ML VIAL IV ONE (11:49)
[2020-02-01] MEDS ORDERED: LIDOCAINE 1% INJ 10MG/ML (20 ML MDV) ONE (11:49)
[2020-02-01] MEDS ORDERED: fentaNYL (PF) 50 MCG/ML 2 ML AMP ONE (11:49)
[2020-02-01] MEDS ORDERED: SUCCINYLCHOLINE CHLORIDE 100 MG/5 ML SYR IV ONE (11:49)
[2020-02-01] MEDS ORDERED: ROCURONIUM 10 MG/ML (10 ML VIAL) IV ONE (11:49)
[2020-02-01] MEDS ORDERED: MIDAZOLAM 2 MG/2 ML VIAL ONE (11:49)
[2020-02-01] MEDS ORDERED: BUPIVACAINE (PF) 0.25% 30 ML VIAL SQ ONE (12:09)
--- NOTE | 2020-02-01 12:45 | P.OP ---
Date of Procedure: 02/01/20 Preoperative Diagnosis: Internal derangement right knee Postoperative Diagnosis: 1. Tear medial meniscus right knee 2. Grade 2 chondromalacia medial femoral condyle right knee 3. Reactive synovitis medial, lateral and suprapatellar compartments right knee Procedure(s) Performed: 1. Arthroscopic partial medial meniscectomy right knee 2. Arthroscopic chondroplasty medial femoral condyle right knee 3. Arthroscopic partial synovectomy medial, lateral and suprapatellar compartments right knee Anesthesia: GETA, local Surgeon: George Du Estimated Blood Loss (ml): 12 Pathology: none sent Condition: stable Disposition: PACU Indications for Procedure: 49-year-old patient seen with progressive right knee pain. After treatment options were discussed, she elected to proceed with arthroscopy. Operative Findings: see description of procedure Description of Procedure: Patient was taken to the operative suite. Patient underwent a general anesthetic by the department of anesthesia. Patient was given preoperative antibiotics. The right lower extremity was placed in a well-padded arthroscopic leg kessler. The right leg was prepped and draped in the normal sterile orthopedic fashion. A lateral parapatellar and suprapatellar incision was made. Trochars were inserted. Arthroscopy was initiated. Suprapatellar pouch revealed diffuse thick reactive synovitis. The patellofemoral joint appeared to articulate congruently. There was grade 1 chondromalacia with no osteochondral flap tears present. The scope was guided into the medial gutter. No loose bodies or plica were identified. The scope was then guided into the medial compartment. A medial parapatellar incision was made. Trocar inserted followed by probe. There was a tear involving the posterior horn medial meniscus. There were grade 2 chondromalacia changes of the medial femoral condyle with some diffuse osteochondral flap tears present. There was thick reactive synovitis anteriorly. I performed a partial medial meniscectomy. I performed a partial synovectomy. I performed a chondroplasty of the medial femoral condyle. The residual meniscus was stable. The residual osteochondral surface was stable. There was good decompression of the synovitis. Scope and probe were then guided into the intercondylar notch. Cruciates were identified, probed and found to be stable. The scope and probe were then guided into lateral compartment. Lateral meniscus was found to be stable. There was no significant chondromalacia involving lateral compartment. There was thick reactive synovitis anteriorly. I performed a partial synovectomy decompressing the reactive synovitis. There was good decompression of the synovitis. The scope was in guided back into the suprapatellar compartment. I introduced a motorized shaver and the dunbar prapatellar compartment. I debrided some piecemeal fragments of meniscus I encountered. I performed a partial synovectomy. Shaver was removed. There was good decompression of the synovitis. I took one more look on the entire knee, no residual debris. Instruments were now removed from the joint. The joint was infiltrated with .25% Marcaine. Steri-Strips were applied to the portal sites. Sterile dressings were applied. The patient was placed into a CAL hose. No tourniquet was utilized. The patient was awakened, transferred to a bed and taken to recovery stable satisfactory condition.
[2020-02-01] MEDS: HYDROmorphone 0.5 MG/0.5 ML SYRINGE IVP PRN ×4 (12:46→13:15)
[2020-02-01 12:52] VITALS: TEMP 97.2
[2020-02-01] MEDS ORDERED: KETOROLAC 15 MG/ML 1 ML VIAL IVP ONE (12:57)
[2020-02-01] MEDS ORDERED: HYDROcodone/APAP 7.5-325MG 1 EACH TAB ONE (13:58)
[2020-02-01] MEDS ORDERED: HYDROcodone/APAP 7.5-325MG 1 EACH TAB PO ONE (13:59)
[2020-02-01 14:52] VITALS: BP 143/85; PULSE 90; RESP 16
== END 2020-02-01 15:14 | disposition home or self-care (01) ==
LOC: OR 09:39
PROVIDERS: ATTEND Orthopaedic Surgery
DX: M23.203 Derangement of unspecified medial meniscus due to old tear or injury, right knee (principal); M94.261 Chondromalacia, right knee; M65.861 Other synovitis and tenosynovitis, right lower leg; M17.11 Unilateral primary osteoarthritis, right knee; G62.9 Polyneuropathy, unspecified; I10 Essential (primary) hypertension; E03.9 Hypothyroidism, unspecified; Z98.84 Bariatric surgery status; Z98.890 Other specified postprocedural states; Z98.891 History of uterine scar from previous surgery; Z90.49 Acquired absence of other specified parts of digestive tract; Z85.3 Personal history of malignant neoplasm of breast; Z92.21 Personal history of antineoplastic chemotherapy; Z92.3 Personal history of irradiation; Z79.890 Hormone replacement therapy; Z79.899 Other long term (current) drug therapy; Z79.3 Long term (current) use of hormonal contraceptives
CPT/HCPCS: 29881; 29876; J2250; J1100; J0690; J2405; J2001; J3010; J1885; J0330; J2704; J1170

== ENCOUNTER 2020-04-22 07:54 | Day surgery (SDC) | payer BC ==
[2020-04-18 15:05] VITALS: BMI 40.6
[~2020-04-22 07:54] MED LIST changes: -DEXAMETHASONE SOD PHOSPHATE 10 MG/ML 1 ML VIAL IV ONE; +DEXAMETHASONE SOD PHOSPHATE 4 MG/ML 1 ML VIAL IV ONE; +HEPARIN SODIUM,PORCINE 5,000 UNIT/ML 1 ML VIAL SQ PRN; +LIDOCAINE 1% (10MG/ML) FOR IV START INTRADERMA PRN; +ONDANSETRON 4 MG/2 ML VIAL IVP ONE; +SCOPOLAMINE 1.5MG/72HR PATCH TRANSDERM ONE; -ceFAZolin 3 GM in SODIUM CHLORIDE 0.9% 100 ML IVPB ONE; +ceFAZolin 3 GM in SODIUM CHLORIDE 0.9% 100 ML IVPB PRN
[2020-04-22 08:16] VITALS: TEMP 97.9
[2020-04-22] MEDS ORDERED: MIDAZOLAM 2 MG/2 ML VIAL ONE (09:19)
[2020-04-22] MEDS ORDERED: PROPOFOL 10 MG/ML 20 ML VIAL IV ONE (09:19)
[2020-04-22] MEDS ORDERED: fentaNYL (PF) 50 MCG/ML 2 ML AMP ONE (09:19)
--- NOTE | 2020-04-22 09:19 | P.GSHP ---
History of Present Illness H&P Date: 04/22/20 Chief Complaint: Right breast cancer Patient here today for Port-A-Cath removal. Patient has not used her port for the last 3-4 months. Prior that was working well. She has completed most of her adjuvant therapy for her right-sided breast cancer. Past Medical History Past Medical History: Cancer, Hypertension, Thyroid Disorder Additional Past Medical History / Comment(s): breast cancer(Status post neoadj uvant chemotherapy, surgery, adjuvant chemotherapy, radiation and continues on AI) History of Any Multi-Drug Resistant Organisms: None Reported Past Surgical History: Breast Surgery, Section, Cholecystectomy, Hernia Repair Additional Past Surgical History / Comment(s): breast bx. x2 Past Anesthesia/Blood Transfusion Reactions: Motion Sickness, Postoperative Nausea & Vomiting (PONV) Smoking Status: Never smoker - Past Family History Father Family Medical History: Cancer, Diabetes Mellitus, Hypertension, Myocardial Infarction ([place]) Additional Family Medical History / Comment(s): colon Mother Family Medical History: Diabetes Mellitus Sister(s) Family Medical History: Diabetes Mellitus Medications and Allergies Home Medications Medication Instructions Recorded Confirmed Type Triamterene-Hctz 37.5-25Mg 1 tab PO QAM 12/29/17 04/22/20 History [Maxzide 37.5-25] Cholecalciferol [Vitamin D3 (25 5,000 unit PO DAILY 03/20/19 04/22/20 History Mcg = 1000 Iu)] Gabapentin 600 mg PO QID 03/20/19 04/18/20 History Letrozole 2.5 mg PO HS 03/20/19 04/22/20 History Leuprolide/Norethindrone Acet 1 dose IM Q90D 03/20/19 04/22/20 History [Lupaneta Pk 11.25-5 mg 3Mo Kit] Multivitamins, Thera [Multivitamin 1 tab PO DAILY 03/20/19 04/22/20 History (formulary)] Ramipril [Altace] 10 mg PO QAM 03/20/19 04/18/20 History Levothyroxine Sodium [Synthroid] 200 mcg PO DAILY 01/30/20 04/18/20 History Neratinib Maleate [Nerlynx] 240 mg PO DAILY 01/30/20 04/22/20 History Nortriptyline HCl [Pamelor] 75 mg PO HS 01/30/20 04/22/20 History Allergies Allergy/AdvReac Type Severity Reaction Status Date / Time No Known Allergies Allergy Verified 04/18/20 14:32 Surgical - Exam Vital Signs Temp Pulse Resp BP Pulse Ox 97.9 F 96 18 138/77 99 04/22/20 08:14 04/22/20 08:14 04/22/20 08:14 04/22/20 08:14 04/22/20 08:14 Physical exam: General: Well-developed, well-nourished Chest: Right infra clavicular Port-A-Cath incision clean and dry HEENT: Normocephalic, sclerae nonicteric Abdomen: Nontender, nondistended Extremities: No edema Neuro: Alert and oriented Assessment and Plan (1) Breast cancer, right Narrative/Plan: Will proceed with Port-A-Cath removal at this time. Risks of bleeding, infection, scarring reviewed. She understands and wishes to proceed. Current Visit: Yes Status: Acute Code(s): C50.911 - MALIGNANT NEOPLASM OF UNSP SITE OF RIGHT FEMALE BREAST SNOMED Code(s): 309263796
[2020-04-22] MEDS ORDERED: LIDOCAINE 1% INJ 10MG/ML (20 ML MDV) SQ ONE ×3 (09:41)
[2020-04-22] MEDS ORDERED: NALOXONE 0.4 MG/ML 1 ML VIAL IV PRN (10:01)
--- NOTE | 2020-04-22 10:02 | P.OP ---
Date of Procedure: 04/22/20 Procedure(s) Performed: PREOPERATIVE DIAGNOSIS: Breast cancer POSTOPERATIVE DIAGNOSIS: Same PROCEDURE: Port-A-Cath removal SURGEON: Erick EBL: Minimal ANESTHESIA: Sedation COMPLICATIONS: None OPERATIVE PROCEDURE: Patient was placed in the supine position. The patient was sedated per anesthesia that time. The chest was prepped and draped in the usual sterile fashion. The skin was localized with Marcaine solution. The previous incision was re-incised using a scalpel. The port was easily excised using accommodation of blunt dissection sharp dissection and electrocautery. The subcutaneous tissues were reapproximated using 3-0 Vicryl sutures. The skin was reapproximated using 4-0 Monocryl sutures. Skin glue was then applied. DISPOSITION: Stable to recovery room
[2020-04-22 10:04] VITALS: RESP 16
[2020-04-22 10:22] VITALS: BP 137/83; PULSE 84
== END 2020-04-22 10:38 | disposition home or self-care (01) ==
LOC: OR 07:54
PROVIDERS: ATTEND Surgery
DX: Z45.2 Encounter for adjustment and management of vascular access device (principal); Z85.3 Personal history of malignant neoplasm of breast; I10 Essential (primary) hypertension; E66.01 Morbid (severe) obesity due to excess calories; Z79.890 Hormone replacement therapy; Z79.899 Other long term (current) drug therapy; Z90.49 Acquired absence of other specified parts of digestive tract; Z98.891 History of uterine scar from previous surgery; Z98.890 Other specified postprocedural states; E07.9 Disorder of thyroid, unspecified; Z92.21 Personal history of antineoplastic chemotherapy; Z92.3 Personal history of irradiation; Z80.0 Family history of malignant neoplasm of digestive organs; Z83.3 Family history of diabetes mellitus; Z82.49 Family history of ischemic heart disease and other diseases of the circulatory system; Z68.41 Body mass index [BMI] 40.0-44.9, adult
CPT/HCPCS: 36590; J2250; J1644; J1100; J0690; J2405; J2001; J3010; J2704

== ENCOUNTER → 2020-06-27 | Outpatient (CLI) | payer BC ==
--- NOTE | 2020-06-27 12:16 | MR ---
EXAMINATION TYPE: MR knee LT wo con DATE OF EXAM: 06/27/2020 COMPARISON: None HISTORY: Pain TECHNIQUE: Multiplanar, multisequence images of the knee is performed without IV contrast. FINDINGS: MEDIAL MENISCUS: Complex tear posterior horn medial meniscus. Anterior horn is intact. LATERAL MENISCUS: Anterior and posterior horns are intact without tear. CRUCIATE LIGAMENTS: The anterior and posterior cruciate ligaments are intact and unremarkable. COLLATERAL LIGAMENTS: The medial collateral ligament and lateral collateral ligament complex are inta ct and unremarkable. EXTENSOR MECHANISM: Visualized quadriceps and patellar tendons are intact. EFFUSION: No significant suprapatellar joint effusion. POPLITEAL CYST: No popliteal/galdamez cyst. TRICOMPARTMENT SPACES: Moderate multi compartment degenerative joint space narrowing. Associated spur formation. CARTILAGE: Collection is thinning seen. BONE MARROW SIGNAL: No focal abnormal marrow signal is appreciated. OTHER: No additional significant abnormality is appreciated. IMPRESSION: 1. Complex tear posterior horn medial meniscus. 2. Changes of osteoarthritis.
== END | disposition home or self-care (01) ==
LOC: RADMRIMAIN 11:06
PROVIDERS: ATTEND Orthopaedic Surgery
DX: M17.12 Unilateral primary osteoarthritis, left knee (principal); M23.322 Other meniscus derangements, posterior horn of medial meniscus, left knee

== ENCOUNTER → 2020-08-14 | Outpatient (CLI) | payer BC ==
[2020-08-14 09:25] LABS: Basophils # (A) 0.1 k/uL (0-0.2); Basophils % (A) 1 %; Eosinophils # (A) 0.2 k/uL (0-0.7); Eosinophils % (A) 3 %; HCT 41.6 % (34.0-46.0); HGB 13.3 gm/dL (11.4-16.0); Lymphocytes # (A) 1.3 k/uL (1.0-4.8); Lymphocytes % (A) 17 %; MCH 26.6 pg (25.0-35.0); MCV 83.2 fL (80.0-100.0); Mean Platelet Volume 7.3; Monocytes # (A) 0.4 k/uL (0-1.0); Monocytes % (A) 6 %; Neutrophils # (A) 5.3 k/uL (1.3-7.7); Neutrophils % (A) 72 %; Platelet Count 260 k/uL (150-450); WBC 7.4 k/uL (3.8-10.6)
[2020-08-14 09:47] LABS: Potassium 4.2 mmol/L (3.5-5.1)
== END | disposition home or self-care (01) ==
LOC: LABPAT 08:37
PROVIDERS: ATTEND Orthopaedic Surgery
DX: Z01.812 Encounter for preprocedural laboratory examination (principal); M23.92 Unspecified internal derangement of left knee
CPT/HCPCS: 36415; 80051; 85025

== ENCOUNTER 2020-08-22 12:31 | Day surgery (SDC) | payer BC ==
[2020-08-16 15:28] VITALS: BMI 39.4
--- NOTE | 2020-08-21 17:57 | HP ---
HISTORY AND PHYSICAL DATE OF SURGERY: 08/22/2020 Naz Dejesus is a 49-year-old patient seen with progressive left knee pain. We discussed options. She elected to proceed with arthroscopy. Consent was obtained. PAST MEDICAL HISTORY: Hypothyroidism, hypertension. PAST SURGICAL HISTORY: Breast biopsy, section, cholecystectomy, gastric bypass surgery. DAILY MEDICATIONS: Altace, levothyroxine, Miradex. ALLERGIES: NONE. SOCIAL HISTORY: She denies tobacco use. PHYSICAL EVALUATION OF THE LEFT KNEE: Her range of motion is negative 3/4 to 110. There is a mild effusion. Tenderness, medial joint line. Positive medial Maddy's. Ligaments stable. Hip rotation without pain. Distal neurovascular exam intact. RADIOGRAPHS: Radiographs of the left knee revealed osteoarthritic changes. Left knee MRI revealed medial meniscal tear. IMPRESSION: 1. Internal derangement of left knee with medial meniscal tear. 2. Hypertension. 3. Hypothyroidism. PLAN: Left knee arthroscopy with partial meniscectomy and debridement. MMODL / IJN: [id number] /
[~2020-08-22 12:31] MED LIST changes: -DEXAMETHASONE SOD PHOSPHATE 4 MG/ML 1 ML VIAL IV ONE; -HEPARIN SODIUM,PORCINE 5,000 UNIT/ML 1 ML VIAL SQ PRN; +HYDROmorphone 0.5 MG/0.5 ML SYRINGE IVP PRN; -LACTATED RINGERS 1,000 ML IV SCH; +MIDAZOLAM 2 MG/2 ML VIAL IV PRN; -ONDANSETRON 4 MG/2 ML VIAL IVP ONE; -SCOPOLAMINE 1.5MG/72HR PATCH TRANSDERM ONE
[2020-08-22] MEDS ORDERED: ONDANSETRON 4 MG/2 ML VIAL ONE ×2 (13:08→16:51)
[2020-08-22] MEDS: LACTATED RINGERS 1,000 ML IV SCH ×2 (13:22→17:15)
[2020-08-22] MEDS ORDERED: ONDANSETRON 4 MG/2 ML VIAL IVP ONE ×2 (13:27→16:54)
[2020-08-22] MEDS ORDERED: DEXAMETHASONE SOD PHOSPHATE 4 MG/ML 1 ML VIAL IVP ONE (13:28)
[2020-08-22] MEDS ORDERED: SUCCINYLCHOLINE CHLORIDE 100 MG/5 ML SYR IV ONE (14:18)
[2020-08-22] MEDS ORDERED: fentaNYL (PF) 50 MCG/ML 2 ML AMP ONE (14:18)
[2020-08-22] MEDS ORDERED: MIDAZOLAM 2 MG/2 ML VIAL ONE (14:18)
[2020-08-22] MEDS ORDERED: PROPOFOL 10 MG/ML 20 ML VIAL IV ONE (14:18)
[2020-08-22] MEDS ORDERED: LIDOCAINE 1% INJ 10MG/ML (20 ML MDV) ONE (14:18)
[2020-08-22] MEDS ORDERED: BUPIVACAINE (PF) 0.25% 30 ML VIAL SQ ONE ×2 (14:47)
--- NOTE | 2020-08-22 15:20 | P.OP ---
Date of Procedure: 08/22/20 Preoperative Diagnosis: Internal derangement left knee Postoperative Diagnosis: 1. Tear medial meniscus left knee 2. Grade 4 chondromalacia medial femoral condyle left knee 3. Grade 4 chondromalacia lateral femoral condyle left knee 4. Reactive synovitis medial, lateral and suprapatellar compartments left knee Procedure(s) Performed: 1. Arthroscopic partial medial meniscectomy left knee 2. Arthroscopic chondroplasty medial femoral condyle left knee 3. Arthroscopic microfracture medial femoral condyle left knee 4. Arthroscopic chondroplasty lateral femoral condyle left knee 5. Arthroscopic partial synovectomy medial, lateral and suprapatellar compartments left knee Anesthesia: SAILAJAA, local Surgeon: George Du Estimated Blood Loss (ml): 10 Pathology: none sent Condition: stable Disposition: PACU Indications for Procedure: 49-year-old patient seen with progressive left knee pain. After treatment options were discussed, she elected to proceed with arthroscopy. Operative Findings: See description of procedure Description of Procedure: Patient was taken to the operative suite. Patient underwent a general anesthetic by the department of anesthesia. Patient was given preoperative antibiotics. The left lower extremity was placed in a well-padded arthroscopic leg kessler. The left leg was prepped and draped in the normal sterile orthopedic fashion. A lateral parapatellar and suprapatellar incision was made. Trochars were inserted. Arthroscopy was initiated. Suprapatellar pouch revealed diffuse thick reactive synovitis. The patellofemoral joint appeared to articulate. There grade 3 chondromalacia with no osteochondral tears present. The scope was guided into the medial gutter. No loose bodies or plica were identified. The scope was then guided into the medial compartment. A medial parapatellar incision was made. Trocar inserted followed by probe. There was a radial tear posterior horn medial meniscus. There were grade 4 chondromalacia changes of the medial femoral condyle with large osteochondral flap tears present. There was thick reactive synovitis anteriorly. I performed a partial medial meniscectomy getting down to stable meniscal tissue. I performed a chond roplasty of the medial femoral condyle getting down to stable osteochondral tissue. I performed a partial synovectomy decompressing the thick reactive synovitis anteriorly. The residual meniscus was stable. There was no area of grade 4 chondromalacia with bony exposure weightbearing surface medial femoral condyle measuring 1 x 1 cm. I decided to perform a microfracture that area. A microfracture awl was then presented and I penetrated the bone with resultant bleeding at the microfracture site. The residual osteochondral surface was stable. There was good decompression of the synovitis. Scope and probe were then guided into the intercondylar notch. Cruciates were identified, probed and found to be stable. The scope and probe were then guided into lateral compartment. The lateral meniscus was found to be stable. There were grade 4 chondral malacia changes of the femoral condyle and grade 3, changes of the lateral tibial plateau. There were very large osteochondral flap tears of the lateral femoral condyle. There was thick reactive synovitis anteriorly. I introduced a motorized shaver and performed a chondroplasty of the lateral femoral condyle getting down to stable osteochondral tissue. I performed a partial synovectomy compressing the thick reactive synovitis. The shaver was removed. The residual osteochondral surface appeared stable. There was good decompression of synovitis. The scope was in guided back into the suprapatellar compartment. I introduced a motorized shaver into the suprapatellar compartment. I debrided some piecemeal fragments of meniscus I encountered. I performed a partial synovectomy decompressing the thick reactive synovitis. The shaver was removed. There was good decompression of synovitis. I now took one more look on the entire knee, no residual debris. Instruments were now removed from the joint. The joint was infiltrated with .25% Marcaine. Steri-Strips were applied to the portal sites. Sterile dressings were applied. The patient was placed into a CAL hose. No tourniquet was utilized. The patient was awakened, transferred to a bed and taken to recovery stable satisfactory condition.
[2020-08-22] MEDS: HYDROmorphone 1 MG/ML 1 ML SYRINGE IVP ONE ×4 (15:23→15:59)
[2020-08-22 15:28] VITALS: TEMP 97
[2020-08-22 15:32] VITALS: RESP 16
[2020-08-22] MEDS ORDERED: KETOROLAC 15 MG/ML 1 ML VIAL IVP ONE (15:40)
[2020-08-22 18:05] VITALS: PULSE 82
[2020-08-22 18:14] VITALS: BP 112/76
== END 2020-08-22 18:06 | disposition home or self-care (01) ==
LOC: OR 12:31
PROVIDERS: ATTEND Orthopaedic Surgery
DX: M23.303 Other meniscus derangements, unspecified medial meniscus, right knee (principal); M94.262 Chondromalacia, left knee; M65.862 Other synovitis and tenosynovitis, left lower leg; I10 Essential (primary) hypertension; E03.9 Hypothyroidism, unspecified; Z88.8 Allergy status to other drugs, medicaments and biological substances; E66.01 Morbid (severe) obesity due to excess calories; G62.9 Polyneuropathy, unspecified; Z85.3 Personal history of malignant neoplasm of breast; Z79.899 Other long term (current) drug therapy
CPT/HCPCS: 29881; 29879; 29876; J2250; J1100; J0690; J2405; J2001; J3010; J1170; J1885; J0330; J2704

== ENCOUNTER → 2020-10-08 | Outpatient (CLI) | payer OTHER ==
--- NOTE | 2020-10-10 22:01 | BD ---
EXAMINATION TYPE: Axial Bone Density DATE OF EXAM: 10/08/2020 COMPARISON: 10.03.2018 CLINICAL HISTORY: 50 YR OLD FEMALE.....ICD-10 CODE: C50.411 HX OF BR CANCER Height: 67.1 Weight: 290 FRAX RISK QUESTIONS: NOTHING TO NOTE HERE, HX OF BREAST CANCER RISK FACTORS HISTORY OF: History of Wrist Fracture: YES, RT A CHILD Diet low in dairy products/other sources of calcium: YES, LACTOSE ISSUES Postmenopausal woman: YES, AT ABOUT 48 YRS OLD Hyperparathyroidism: NO Adrenal Insufficiency: NO MEDICATIONS: Thyroid Medications: YES, SYNTHROID, FOR ABOUT 20 YRS Additional Medications: LUPRON INJECTION, FEMARA, BP MEDS, ALKA, GABAPENTIN, HX OF CHEMO AND RADIAT ION, MULTIVITAMIN Additional History: NEUROPATHY, HX OF RT BREAST CANCER, EXAM MEASUREMENTS: Bone mineral densitometry was performed using the [employer] System. Bone mineral density as measured about the Lumbar spine is: ----- L1-L4(G/cm2): 1.145 T Score Values are as follows: ----- L1: -1.1 ----- L2: 0.0 ----- L3: -0.4 ----- L4: 0.1 ----- L1-L4: -0.3 Bone mineral density has: Increased 2.0% since study of: 10.03.2018 Bone mineral density about the R hip (g/cm2): 1.012 Bone mineral density about the L hip (g/cm2): 0.940 T Score values are as follows: -----R Neck: -0.8 -----L Neck: -1.8 -----R Total: 0.0 -----L Total: -0.5 Bone mineral density has: Decreased -6.8% since study of: 10.03.2018 FRAX%s: THERE IS A 5.0% CHANCE FOR A MAJOR OSTEOPOROTIC FX AND A 0.5% FOR HIP......PROBABILITY FOR FX IN 10 YRS TIME IMPRESSION: Osteopenia (T Score between -2.5 and -1) is now present. There is slightly increased risk of fracture and the patient may be considered for treatment. Re-Screen 2-5 years. NOTE: T-SCORE=SD OF THE YOUNG ADULT MEAN.
== END | disposition home or self-care (01) ==
LOC: RADBDWWP 07:49
PROVIDERS: ATTEND Internal Medicine Hematology & Oncology
DX: M85.89 Other specified disorders of bone density and structure, multiple sites (principal); Z85.3 Personal history of malignant neoplasm of breast
CPT/HCPCS: 77080

== ENCOUNTER 2020-12-13 10:17 | Day surgery (SDC) | payer OTHER ==
[2020-12-12 08:37] VITALS: BMI 40.6
[~2020-12-13 10:17] MED LIST changes: -HYDROmorphone 0.5 MG/0.5 ML SYRINGE IVP PRN; +LACTATED RINGERS 1,000 ML IV SCH; -LIDOCAINE 1% (10MG/ML) FOR IV START INTRADERMA PRN; -MIDAZOLAM 2 MG/2 ML VIAL IV PRN; -ceFAZolin 3 GM in SODIUM CHLORIDE 0.9% 100 ML IVPB PRN
[2020-12-13 10:40] VITALS: TEMP 97.5
[2020-12-13] MEDS ORDERED: PROPOFOL 10 MG/ML 20 ML VIAL IV ONE (11:18)
--- NOTE | 2020-12-13 11:36 | P.PCN ---
Date of Procedure: 12/13/20 Procedure(s) Performed: BRIEF HISTORY: Patient is a 50-year-old pleasant white female scheduled for an elective colonoscopy as a part of screening for colon cancer and family history of colon cancer diagnosed in her father at age 52. PROCEDURE PERFORMED: Colonoscopy. PREOPERATIVE DIAGNOSIS: screening for colon cancer and family history of colon cancer.. IV sedation per Anesthesia. PROCEDURE: After informed consent was obtained, the patient, was brought into the endoscopy unit. IV sedation was administered by Anesthesia under continuous monitoring. Digital rectal examination was normal. Initially the Olympus CF-160 flexible video colonoscope was then inserted in the rectum, gradually advanced into the cecum without any difficulty. Careful examination was performed as the scope was gradually being withdrawn. Ileocecal valve and the appendiceal orifice were visualized and appeared normal. Prep was fair.. Mucosa of the cecum, ascending colon, transverse colon, descending colon, sigmoid colon, and rectum appeared normal. Retroflexion was performed in the rectum and no lesions were seen. The patient tolerated the procedure well. IMPRESSION: Normal-appearing colon from rectum to cecum with no evidence of colorectal neoplasia. RECOMMENDATIONS: Findings of this examination were discussed with the patient as well as her family. She was advised to have a repeat screening colonoscopy in 5 years because of the strong family history of colon cancer.
[2020-12-13 11:50] VITALS: BP 107/73; PULSE 88; RESP 16
== END 2020-12-13 12:20 | disposition home or self-care (01) ==
LOC: ORWHC2ENDO 10:17
PROVIDERS: ATTEND Internal Medicine Gastroenterology
DX: Z12.11 Encounter for screening for malignant neoplasm of colon (principal); Z82.79 Family history of other congenital malformations, deformations and chromosomal abnormalities; Z80.0 Family history of malignant neoplasm of digestive organs; Z79.899 Other long term (current) drug therapy; I10 Essential (primary) hypertension; Z87.891 Personal history of nicotine dependence; E07.9 Disorder of thyroid, unspecified
CPT/HCPCS: J2704; G0105; 45378

== ENCOUNTER → 2021-01-10 | Outpatient (CLI) | payer OTHER ==
[~2021-01-10] MED LIST changes: -LACTATED RINGERS 1,000 ML IV SCH; +LEUPROLIDE ACET 11.25MG SYRGKIT IM NR; +SODIUM CHLORIDE 0.9% 500 ML 500 ML in EMPTY BAG 1 BAG IV PRN; +ZOLEDRONIC ACID 4 MG in SODIUM CHLORIDE 0.9% 100 ML IV NR
[2021-01-10 10:14] VITALS: BP 141/83; PULSE 97; RESP 16; TEMP 97.5
== END ==
LOC: PROCWHC3 10:00
PROVIDERS: ATTEND Internal Medicine Hematology & Oncology
DX: C50.411 Malignant neoplasm of upper-outer quadrant of right female breast (principal); D50.9 Iron deficiency anemia, unspecified; E53.8 Deficiency of other specified B group vitamins; G62.0 Drug-induced polyneuropathy; I10 Essential (primary) hypertension; Z71.3 Dietary counseling and surveillance; Z87.891 Personal history of nicotine dependence
CPT/HCPCS: 96402; J1950

== ENCOUNTER → 2021-04-21 | Outpatient (CLI) | payer OTHER ==
[~2021-04-21] MED LIST changes: +LEUPROLIDE ACET 11.25MG SYRGKIT IM ONE; -SODIUM CHLORIDE 0.9% 500 ML 500 ML in EMPTY BAG 1 BAG IV PRN; -ZOLEDRONIC ACID 4 MG in SODIUM CHLORIDE 0.9% 100 ML IV NR
[2021-04-21 07:36] VITALS: BP 137/83; PULSE 105; RESP 16; TEMP 97.8
== END ==
LOC: PROCWHC3 07:24
PROVIDERS: ATTEND Internal Medicine Hematology & Oncology
DX: C50.411 Malignant neoplasm of upper-outer quadrant of right female breast (principal); Z79.811 Long term (current) use of aromatase inhibitors; Z87.891 Personal history of nicotine dependence
CPT/HCPCS: 96402; J1950

== ENCOUNTER → 2021-10-17 | Outpatient (CLI) | payer OTHER ==
[~2021-10-17] MED LIST changes: -LEUPROLIDE ACET 11.25MG SYRGKIT IM ONE
[2021-10-17 08:33] VITALS: BP 117/81; PULSE 96; RESP 18; TEMP 97.7
== END ==
LOC: PROCWHC3 08:24
PROVIDERS: ATTEND Internal Medicine Hematology & Oncology
DX: C50.411 Malignant neoplasm of upper-outer quadrant of right female breast (principal); Z79.811 Long term (current) use of aromatase inhibitors; D50.9 Iron deficiency anemia, unspecified; Z87.891 Personal history of nicotine dependence
CPT/HCPCS: 96402; J1950

== ENCOUNTER → 2022-01-01 | Outpatient (CLI) | payer OTHER ==
[2022-01-01 10:34] LABS: Basophils # (A) 0.04 X 10*3/uL (0.00-0.10); Basophils % (A) 0.6 %; Eosinophils # (A) 0.23 X 10*3/uL (0.04-0.35); Eosinophils % (A) 3.2 %; HCT 40.5 % (37.2-46.3); HGB 12.9 g/dL (12.0-15.0); Immature Grans, Automated 0.6 %; Lymphocytes # (A) 1.13 X 10*3/uL (0.90-5.00); Lymphocytes % (A) 15.9 %; MCH 27.9 pg (27.0-32.0); MCHC 31.9 g/dL (32.0-37.0); MCV 87.5 fL (80.0-97.0); Mean Platelet Volume 10.8 fL (9.5-12.2); Monocytes # (A) 0.52 X 10*3/uL (0.20-1.00); Monocytes % (A) 7.3 %; NRBC Per 100 WBC 0 /100 WBCS (0.0-0.0); Neutrophils # (A) 5.13 X 10*3/uL (1.80-7.70); Neutrophils % (A) 72.4 %; Platelet Count 278 X 10*3/uL (140-440); RBC 4.63 X 10*6/uL (4.10-5.20); RDW 12.9 % (11.5-14.5); WBC 7.09 X 10*3/uL (4.50-10.00)
[2022-01-01 10:41] LABS: African American GFR (CKD) 119.6 (60.0-200.0); Anion Gap 7.8 mmol/L (10.00-18.00); Blood Urea Nitrogen 18.5 mg/dL (9.0-27.0); Carbon Dioxide 28.2 mmol/L (20.0-27.5); Non-African American GFR(CKD) 103.2 (60.0-200.0); Potassium 4.6 mmol/L (3.5-5.5)
== END | disposition home or self-care (01) ==
LOC: LABPAT 07:06
PROVIDERS: ATTEND Obstetrics & Gynecology
DX: Z01.812 Encounter for preprocedural laboratory examination (principal); C50.919 Malignant neoplasm of unspecified site of unspecified female breast; I10 Essential (primary) hypertension
CPT/HCPCS: 36415; 80051; 82565; 82947; 84520; 85025; 87086; 93005

== ENCOUNTER 2022-01-06 06:17 | Day surgery (SDC) | payer OTHER ==
[2021-12-31 12:20] VITALS: BMI 41.3
--- NOTE | 2022-01-06 03:51 | HP ---
HISTORY AND PHYSICAL Surgery, tomorrow, January 06. HISTORY OF PRESENT ILLNESS: This is a 51-year-old female, who presented from Dr. Long with recommendation for removal of the ovary for a positive hormone-sensitive breast cancer. The patient was counseled thoroughly regarding this procedure and would like to have it laparoscopically performed. She is having no postmenopausal bleeding, no problems or issues. PAST MEDICAL HISTORY: Significant for anemia, hyperlipidemia, hypertension, malignant tumor of the breast, hypothyroidism, neuropathy. PAST SURGICAL HISTORY: Lumpectomy, gastric bypass surgery, cholecystectomy, meniscus repair. CURRENT MEDICATIONS: 1. Gabapentin 600 mg 3 times a day. 2. Letrozole 2.5 mg once daily. 3. Levothyroxine 200 mcg capsules once daily. 4. Depot Lupron 11.25 mg every 3 months intramuscularly. 5. Nortriptyline 25 mg tablet and 75 mg tablet, both at bedtime. 6. Nystatin 100,000 units/g topical cream twice daily as needed. 7. Ramipril 10 mg tablet once daily. 8. Triamterene 37.5/hydrochlorothiazide 25 mg tablet once daily. FAMILY HISTORY: Significant for diabetes, colon cancer, heart disease. REPRODUCTIVE HISTORY: section x2 in 1987, 2003. 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 Denies alcohol or drug use. ALLERGIES: None known. PHYSICAL EXAMINATION: VITAL SIGNS: The patient is 282 pounds, 5 feet 9 inches, blood pressure 140/84. HEENT: Reveals good dentition, no thyromegaly, no cervical lymphadenopathy. BREASTS: Bilaterally symmetric and pendulous. No nipple discharge, skin changes, axillary adenopathy, discernible lesions or masses. CHEST: Clear to auscultation in all schmidt. CARDIAC: Reveals regular rate and rhythm with no murmur, click, or rub. ABDOMEN: Moderately obese, nontender. No organosplenomegaly, rebound, or guarding. EXTREMITIES: Reveal no edema, good peripheral pulses, normal range of motion. EXTERNAL GENITALIA: Age appropriate. No discharge or odor. Vaginal vault is negative. Bladder is nontender. Cervix is nulliparous to inspection. No lesions, discharge, or abnormalities. Uterus is small, anteverted, anteflexed, midline, nontender, mobile. Adnexa are negative bilaterally, smooth and small. RECTAL: Reveals sphincter tone normal, no hemorrhoids, no masses, FIT negative stool. IMPRESSION: Positive estrogen-receptor breast cancer, recommendation for bilateral salpingo- oophorectomy per Dr. Long, medical oncologist, following patient's care. PLAN: I have discussed with the patient with 2 previous sections and thick abdominal wall, she is at a slightly higher risk for damage or perforation to the bladder, bowels, ureters, blood vessels. Reviewed the risk of bleeding, infection, risks of anesthesia. We will attempt this case laparoscopically, the patient does consent to a mini-laparotomy, if for some reason, the ovaries and tubes are not able to be removed laparoscopically. All questions answered. Second opinion offered and declined. We will proceed with laparoscopic bilateral salpingo-oophorectomy. MMODL / IJN: [id number] /
[~2022-01-06 06:17] MED LIST changes: +DEXAMETHASONE SOD PHOSPHATE 4 MG/ML 1 ML VIAL IV ONE; +LACTATED RINGERS 1,000 ML IV SCH; -LEUPROLIDE ACET 11.25MG SYRGKIT IM NR; +LIDOCAINE 1% (10MG/ML) FOR IV START INTRADERMA PRN; +ONDANSETRON 4 MG/2 ML VIAL IVP ONE; +Pre Op ABX Message 1 EACH MISC MISCELLANE ONE
[2022-01-06] MEDS ORDERED: LIDOCAINE 2% INJ 20 MG/ML (2 ML VIAL) ONE (07:24)
[2022-01-06] MEDS ORDERED: NEOSTIGMINE 1 MG/ML 10 ML VIAL ONE (07:24)
[2022-01-06] MEDS ORDERED: PROPOFOL 10 MG/ML 20 ML VIAL IV ONE ×2 (07:24)
[2022-01-06] MEDS ORDERED: fentaNYL (PF) 50 MCG/ML 2 ML AMP ONE (07:24)
[2022-01-06] MEDS ORDERED: ROCURONIUM 10 MG/ML (5 ML VIAL) IV ONE (07:24)
[2022-01-06] MEDS ORDERED: GLYCOPYRROLATE 0.2 MG/ML 2 ML VIAL ONE (07:24)
[2022-01-06] MEDS ORDERED: MIDAZOLAM 2 MG/2 ML VIAL ONE (07:24)
[2022-01-06] MEDS ORDERED: SUCCINYLCHOLINE CHLORIDE 200 MG/10 ML VIAL IV ONE (07:24)
[2022-01-06] MEDS ORDERED: BUPIVACAINE (PF) 0.25% 30 ML VIAL SQ ONE ×2 (07:59→08:25)
[2022-01-06] MEDS ORDERED: SILVER NITRATE APPLICATOR 1 EACH STICK..EA. TOPICAL ONE (08:26)
[2022-01-06] MEDS ORDERED: LACTATED RINGERS 1,000 ML IV ONE (08:30)
[2022-01-06] MEDS ORDERED: FERRIC SUBSULFATE (MONSELS) JAR TOPICAL ONE (08:30)
[2022-01-06] MEDS: HYDROmorphone 0.5 MG/0.5 ML SYRINGE IVP PRN ×2 (08:52→09:05)
--- NOTE | 2022-01-06 08:53 | P.OP ---
Date of Procedure: 01/06/22 Preoperative Diagnosis: Hormone sensitive breast cancer Postoperative Diagnosis: Essentially normal appearing female pelvis Procedure(s) Performed: Laparoscopic bilateral salpingo-oophorectomy Anesthesia: JESSE Surgeon: Tonya Castro Production Coordinator #1: Wilberto Pérez Estimated Blood Loss (ml): 15 IV fluids (ml): 900 Urine output (ml): 50 Pathology: other (Bilateral tubes and ovaries, separate cover) Condition: stable Disposition: PACU Operative Findings: Essentially normal-appearing female pelvis Description of Procedure: Patient is brought to the operating suite where general anesthetic is administered without difficulty. She's placed in the dorsal lithotomy position. The cervix, vagina, perineal body and abdomen are all prepped and draped in usual sterile fashion. The appropriate timeout is performed to assure proper patient and procedural identification. Bladder is drained for approximately 50 mL of clear yellow urine. Speculum was placed into the vagina, anterior lip of the cervix is grasped with a tenaculum, acorn cannula is placed in the speculum is removed. Attention is now drawn to the abdominal wall. A small infraumbilical incision is made, Veress needle is placed and placement is checked with hanging drop technique. Abdomen is insufflated under low filling pressures of approximately 8 mm Romero for total of 4.0 L of CO2 gas. Veress needle is removed. Trochars placed and placement is atraumatic. Patient is now positioned in the Trendelenburg position. A second incision is made in the right lower quadrant and a 10 mm port is placed under direct visualization, atraumatic entry. A third trocar is placed in the left lower quadrant, 5 mm, direct visualization, atraumatic. Uterus is then elevated and the right tube and ovary are identified. They are grasped. The LigaSure is used to cauterize and remove the right tube and ovary, no issues with pelvic sidewall or bowel. The bag is placed, the tube and ovary are positioned in the bag and it is removed and sent to pathology for evaluation. The same procedure is carried out contralaterally, again the sidewall vessels and ureter are all safe within the procedure of the LigaSure cautery and cutting. The left tube and ovary are now placed in an Endobag, removed, and sent to pathology. All anatomic structures are hemostatically intact. There is no evidence of endometriosis or adhesions. Instrumentation is now removed and the CO2 gas was allowed to diffuse. 4-0 undyed Monocryl is used in a subcuticular manner to close the incisions. They are injected with quarter percent Marcaine without epinephrine to aid in analgesia and hemostasis. Instrumentation is removed from the vagina. Monsel solution is placed on the anterior lip of the cervix for excellent hemostasis. All sponge needle and enhancement counts are correct. Patient is brought back to recovery room in very good condition with blood pressure 147/80, pulse 86, respirations 18. Toradol is given prior to leaving the operative suite. Patient will follow-up with me in the office in 2 weeks.
[2022-01-06 09:07] VITALS: TEMP 97.1
[2022-01-06 09:15] VITALS: RESP 16
[2022-01-06 10:45] VITALS: PULSE 86
[2022-01-06 12:02] VITALS: BP 135/87
== END 2022-01-06 12:14 | disposition home or self-care (01) ==
LOC: OR 06:17
PROVIDERS: ATTEND Obstetrics & Gynecology
DX: N83.201 Unspecified ovarian cyst, right side (principal); N83.202 Unspecified ovarian cyst, left side; C50.919 Malignant neoplasm of unspecified site of unspecified female breast; D64.9 Anemia, unspecified; E78.5 Hyperlipidemia, unspecified; I10 Essential (primary) hypertension; E03.9 Hypothyroidism, unspecified; G62.9 Polyneuropathy, unspecified; Z98.84 Bariatric surgery status; Z90.49 Acquired absence of other specified parts of digestive tract; Z98.890 Other specified postprocedural states; Z90.12 Acquired absence of left breast and nipple; Z79.890 Hormone replacement therapy; Z79.899 Other long term (current) drug therapy; Z83.3 Family history of diabetes mellitus; Z80.0 Family history of malignant neoplasm of digestive organs; Z17.0 Estrogen receptor positive status [ER+]; Z82.49 Family history of ischemic heart disease and other diseases of the circulatory system
CPT/HCPCS: 58661; 81025; 86900; 86901; 88305; 86850; J2250; J0330; J1100; J2710; J2405; J3010; J2704; J1170; J2001

== ENCOUNTER → 2022-01-16 | Outpatient (CLI) | payer OTHER ==
[~2022-01-16] MED LIST changes: -DEXAMETHASONE SOD PHOSPHATE 4 MG/ML 1 ML VIAL IV ONE; -LACTATED RINGERS 1,000 ML IV SCH; +LEUPROLIDE ACET 11.25MG SYRGKIT IM NR; -LIDOCAINE 1% (10MG/ML) FOR IV START INTRADERMA PRN; -ONDANSETRON 4 MG/2 ML VIAL IVP ONE; -Pre Op ABX Message 1 EACH MISC MISCELLANE ONE; +SODIUM CHLORIDE 0.9% 500 ML 500 ML in EMPTY BAG 1 BAG IV PRN; +ZOLEDRONIC ACID 4 MG in SODIUM CHLORIDE 0.9% 100 ML IV NR
[2022-01-16 08:10] VITALS: BP 129/88; PULSE 108; RESP 16; TEMP 98.2
== END ==
LOC: PROCWHC3 07:55
PROVIDERS: ATTEND Internal Medicine Hematology & Oncology
DX: C50.411 Malignant neoplasm of upper-outer quadrant of right female breast (principal); D50.9 Iron deficiency anemia, unspecified; Z87.891 Personal history of nicotine dependence; Z79.811 Long term (current) use of aromatase inhibitors
CPT/HCPCS: 96365; J3489

== ENCOUNTER → 2024-04-17 | Outpatient (CLI) | payer BC ==
--- NOTE | 2024-04-17 16:21 | US ---
EXAMINATION TYPE: US venous doppler duplex LE LT DATE OF EXAM: 04/17/2024 4:10 PM COMPARISON: NONE CLINICAL INDICATION: Female, 53 years old with history of LLE; R22.40 MASS AND LUMP, UNSPECIFIED LOWE R LIMB; pain and edema left leg for 2 days, Pain TECHNIQUE: The lower extremity deep venous system is examined utilizing real time linear array sonog mesfin with graded compression, color doppler sonography, and spectral doppler. SIDE PERFORMED: left FINDINGS: VESSELS IMAGED: Common Femoral Vein Deep Femoral Vein Greater Saphenous Vein * Femoral Vein Popliteal Vein Small Saphenous Vein * Proximal Calf Veins (* superficial vessels) Left Leg: No evidence of DVT. Rouleaux flow noted , Color Doppler imaging shows patency of the vesse ls. Spectral waveforms are within normal limits. IMPRESSION: No evidence of deep vein thrombosis of the left lower extremity. [facility], , 04/17/2024 4:19 PM
== END | disposition home or self-care (01) ==
LOC: RADUSWWP 15:51
PROVIDERS: ATTEND Family Medicine
DX: R22.40 Localized swelling, mass and lump, unspecified lower limb (principal)